=== PATIENT | female | born 1940 | race Caucasian/White ===

== ENCOUNTER 2017-07-21 08:38 | Outpatient (CLI) | payer MEDICARE, OTHER ==
--- NOTE | 2017-07-21 17:03 | MRI Report ---
EXAM: RIGHT SHOULDER MRI WITHOUT CONTRAST EXAM DATE: 07/21/2017 09:33 a.m. CLINICAL HISTORY: Chronic right shoulder pain worsening over the past 1.5 years. COMPARISON: Radiographs 03/24/2015. TECHNIQUE: Multiplanar, multisequence T1-weighted and fluid-sensitive sequences of the shoulder witho ut contrast. Other: None. FINDINGS: Rotator cuff: Moderate patchy edema within the distal supraspinatus. Ill-defined distal bursal surfac e and insertional tear of the anterior supraspinatus approximately 7 x 6 mm. No full-thickness tear i dentified but the anterior fibers are ill-defined. No convincing evidence a high-grade or full-thickn ess rotator cuff tear. No significant rotator cuff muscle atrophy or fatty replacement. Long head biceps tendon: Intact. Labrum: Linear signal representing possible tear at the inferior and posteroinferior labrum. No defin itive tear demonstrated on this non-arthrographic exam. Bones and articular surfaces: Moderate cartilage thinning irregularity and fissuring over the glenoid with pronounced subchondral marrow edema over the lower glenoid. Moderate humeral head marginal oste ophyte formation. Subchondral edema, subchondral cyst formation and moderate cartilage loss at the mcrae perior aspect of the humeral head. Acromioclavicular joint: Mild degenerative change. Type II acromion. Trace fluid in the subacromial s ubdeltoid bursa. IMPRESSION: 1. Moderate glenohumeral osteoarthritis. 2. Moderate supraspinatus tendinosis. 3. Ill-defined low-grade distal bursal surface and insertional tear of the anterior supraspinatus. 4. Mild degenerative change at the acromioclavicular joint. 5. Possible ill-defined tear at the inferior and posteroinferior labrum. [facility] SECTION Referring Provider Line: [phone] SITE ID: [id number]
== END 2017-07-21 08:39 | disposition home or self-care (01) ==
LOC: DI 08:38
PROVIDERS: ATTEND Physician Assistant Medical
DX: M19.011 Primary osteoarthritis, right shoulder (principal); M75.101 Unspecified rotator cuff tear or rupture of right shoulder, not specified as traumatic; M75.91 Shoulder lesion, unspecified, right shoulder

== ENCOUNTER 2017-07-30 08:45 | Outpatient (CLI) | payer MEDICARE, OTHER ==
[2017-07-30 13:36] LABS: BASOPHILS % (AUTO) 0.6 %; EOSINOPHILS # (AUTO) 0.2 10^3/uL (0.0-0.7); EOSINOPHILS % (AUTO) 3.7 %; HCT - HEMATOCRIT 37.2 % (37.0-47.0); HGB - HEMOGLOBIN 12.5 g/dL (12.0-16.0); LYMPHOCYTES # (AUTO) 1.3 10^3/uL (1.5-3.5); LYMPHOCYTES % (AUTO) 32.1 %; MEAN CORPUSCULAR HEMOGLOBIN 29.9 pg (27.0-31.0); MEAN CORPUSCULAR HGB CONC 33.5 g/dL (32.0-36.0); MEAN CORPUSCULAR VOLUME 89.3 fL (81.0-99.0); MEAN PLATELET VOLUME 8.4 fL (7.9-10.8); MONOCYTES # (AUTO) 0.4 10^3/uL (0.0-1.0); MONOCYTES % (AUTO) 9.7 %; NEUTROPHILS # (AUTO) 2.3 10^3/uL (1.5-6.6); NEUTROPHILS % (AUTO) 53.9 %; RED BLOOD COUNT 4.17 10^6/uL (4.20-5.40); RED CELL DISTRIBUTION WIDTH 13.1 % (12.0-15.0); UNCORRECTED WHITE BLOOD COUNT 4.2 x10^3/uL; WHITE BLOOD COUNT 4.2 x10^3/uL (4.8-10.8)
[2017-07-30 14:03] LABS: THYROID STIMULATING HORMONE 2.37 uIU/mL (0.34-5.60)
[2017-07-30 14:09] LABS: ALBUMIN/GLOBULIN RATIO 1.5 (1.0-2.2); BILIRUBIN,TOTAL 0.3 mg/dL (0.2-1.0); CALCIUM 9.3 mg/dL (8.5-10.3); CREATININE 0.8 mg/dL (0.4-1.0); TOTAL PROTEIN 6.9 g/dL (6.7-8.2)
== END 2017-07-30 08:46 | disposition home or self-care (01) ==
LOC: LAB.R 08:45
PROVIDERS: ATTEND Physician Assistant Medical
DX: Z79.899 Other long term (current) drug therapy (principal); E55.9 Vitamin D deficiency, unspecified; F32.9 Major depressive disorder, single episode, unspecified; E03.9 Hypothyroidism, unspecified; G47.00 Insomnia, unspecified
CPT/HCPCS: 80053; 82306; 84439; 84443; 84481; 85025

== ENCOUNTER 2017-09-10 09:38 | Emergency (ER) | payer MEDICARE, OTHER ==
[2017-09-10 10:04] LABS: BASOPHILS % (AUTO) 0.5 %; EOSINOPHILS # (AUTO) 0.1 10^3/uL (0.0-0.7); EOSINOPHILS % (AUTO) 3.5 %; HGB - HEMOGLOBIN 12.4 g/dL (12.0-16.0); LYMPHOCYTES % (AUTO) 27.3 %; MEAN CORPUSCULAR HEMOGLOBIN 29.9 pg (27.0-31.0); MEAN CORPUSCULAR HGB CONC 33.9 g/dL (32.0-36.0); MEAN CORPUSCULAR VOLUME 88.1 fL (81.0-99.0); MEAN PLATELET VOLUME 7.7 fL (7.9-10.8); MONOCYTES # (AUTO) 0.3 10^3/uL (0.0-1.0); MONOCYTES % (AUTO) 8.8 %; NEUTROPHILS # (AUTO) 2.1 10^3/uL (1.5-6.6); NEUTROPHILS % (AUTO) 59.9 %; PLT - PLATELET COUNT 209 10^3/uL (130-450); RED BLOOD COUNT 4.14 10^6/uL (4.20-5.40); RED CELL DISTRIBUTION WIDTH 13.3 % (12.0-15.0); WHITE BLOOD COUNT 3.5 x10^3/uL (4.8-10.8)
[2017-09-10 10:16] LABS: ALBUMIN 3.9 g/dL (3.2-5.5); ALBUMIN/GLOBULIN RATIO 1.4 (1.0-2.2); BILIRUBIN,TOTAL 0.6 mg/dL (0.2-1.0); CALCIUM 9.4 mg/dL (8.5-10.3); CREATININE 0.9 mg/dL (0.4-1.0); TOTAL PROTEIN 6.6 g/dL (6.7-8.2)
--- NOTE | 2017-09-10 11:18 | ED Physician Documentation ---
PD HPI CHEST PAIN - Stated complaint Stated Complaint: HEART POUNDING - Chief complaint Chief Complaint: Cardiac - History obtained from History obtained from: Patient - History of Present Illness Timing - onset: How many days ago (3) Timing - onset during: Light activity Timing - duration: Days (3) Timing - details: Gradual onset, Still present, Waxing and waning Quality: Throbbing Location: Left chest Improved by: Rest Associated symptoms: Feeling faint / dizzy. No: Shortness of air, Diaphoresis, Nausea, Vomiting Similar symptoms before: Has not had sx before Recently seen: Clinic - Additional information Additional information: 76-year-old female has had a feeling of palpitations in her chest and lightheaded and dizziness. She does state that she drinks fluids regularly and she has recently been in to see her primary care doctor about a spot on her eye and she has been placed on some TobraDex drops as well as some Keflex and this process seems to be improving dramatically. She is concerned about the drops causing her to feel odd. She has not had cough or congestion she has not had vomiting or diarrhea she is taking a multivitamin and magnesium daily. She does give history that she hydrates with lemon water in the morning and does not drink fluids until afternoon and drinks about 60 ounces per day. She is under a lot of stress with a partner who has lung cancer that is not responding to treatment. Review of Systems Constitutional: reports: Fatigue. 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 : Other HEENT: None Psych: None Musculoskeletal: Chronic back pain, Other Derm: Eczema - Past Surgical History Past Surgical History: Yes Ortho: Other - Present Medications Home Medications: Ambulatory Orders Medication Instructions Recorded Confirmed Azithromycin 250 mg PO DAILYX4 PRN 06/12/16 06/12/16 Ciprofloxacin HCl [Cipro] 250 mg PO [id number] PRN 06/12/16 06/12/16 Cyclobenzaprine [Flexeril] 10 mg PO TID PRN 06/12/16 06/12/16 HYDROcod/ACETAM 5/325 [[place] 5/325] 1 tab PO DAILY 06/12/16 06/12/16 Liotrix [Thyrolar-3] 1 tab PO DAILY 06/12/16 06/12/16 Zolpidem [Ambien] 10 mg PO HS 06/12/16 06/12/16 buPROPion [Wellbutrin Xl] 150 mg PO DAILY 06/12/16 06/12/16 clonazePAM [Clonazepam] 1 mg PO DAILY 06/12/16 06/12/16 - Allergies Allergies/Adverse Reactions: Allergies Allergy/AdvReac Type Severity Reaction Status Date / Time prochlorperazine edisylate * Allergy Severe Edema Verified 09/10/17 09:49 [From Compazine] prochlorperazine maleate * Allergy Severe Edema Verified 09/10/17 09:49 [From Compazine] Sulfa (Sulfonamide Allergy Severe Nausea Verified 09/10/17 09:49 Antibiotics) tetracycline [Tetracycline] Allergy Nausea Verified 09/10/17 09:49 - Social History Does the pt smoke?: No Smoking Status: Never smoker Does the pt drink ETOH?: Yes Does the pt have substance abuse?: No - Immunizations Immunizations are current?: Yes - POLST Patient has POLST: No PD ED PE NORMAL - Vitals Vital signs reviewed: Yes (hypertensive) - General General: Alert and oriented X 3, No acute distress, Well developed/nourished - HEENT HEENT: Atraumatic, PERRL, EOMI, Ears normal, Other (dry mucous membranes) - Neck Neck: Supple, no meningeal sign, No bony TTP - Cardiac Cardiac: RRR, No murmur - Respiratory Respiratory: No respiratory distress, Clear bilaterally - Abdomen Abdomen: Soft, Non tender - Back Back: No CVA TTP, No spinal TTP - Derm Derm: Normal color, Warm and dry - Extremities Extremities: No deformity, No edema - Neuro Neuro: No motor deficit, No sensory deficit Eye Opening: Spontaneous Motor: Obeys Commands Verbal: Oriented GCS Score: 15 - Psych Psych: Normal mood, Normal affect Results - Vitals Vitals: Vital Signs - 24 hr 01/22/18 01/22/18 01/22/18 09:40 11:05 11:50 Temperature 36.6 C Heart Rate 48 L 69 Heart Rate [ 79 Sitting] Heart Rate [ 87 Standing] Heart Rate [ 75 Supine] Respiratory 20 16 Rate Blood Pressure 142/89 H 130/79 Blood Pressure 124/69 [Sitting] Blood Pressure 107/76 [Standing] Blood Pressure 113/64 [Supine] O2 Saturation 100 98 09/10/17 13:05 Temperature Heart Rate 79 Heart Rate [ Sitting] Heart Rate [ Standing] Heart Rate [ Supine] Respiratory 16 Rate Blood Pressure 110/72 Blood Pressure [Sitting] Blood Pressure [Standing] Blood Pressure [Supine] O2 Saturation 96 Oxygen O2 Source Room air - EKG (time done) 0944 Rate: Rate (enter#) (89) Rhythm: Other (supraventricular bigeminy) Compare to prior EKG: Old EKG unavailable Computer interpretation: Agree with computer - Labs Labs: Laboratory Tests 09/10/17 09/10/17 09/10/17 09:58 09:58 09:58 WBC 3.5 L RBC 4.14 L Hgb 12.4 Hct 36.4 L MCV 88.1 MCH 29.9 MCHC 33.9 RDW 13.3 Plt Count 209 MPV 7.7 L Neut # 2.1 Lymph # 1.0 L [place] # 0.3 Eos # 0.1 Baso # 0.0 Absolute Nucleated RBC 0.00 Nucleated RBC % 0.0 Sodium 135 Potassium 3.6 Chloride 99 L Carbon Dioxide 27 Anion Gap 9.0 BUN 14 Creatinine 0.9 Estimated GFR (MDRD) 61 L Glucose 126 H Calcium 9.4 Total Bilirubin 0.6 AST 21 ALT 17 Alkaline Phosphatase 42 Troponin I < 0.04 Total Protein 6.6 L Albumin 3.9 Globulin 2.7 Albumin/Globulin Ratio 1.4 Lipase 23 Procedures - IVC sono (time) 1130 Bedside IVC sono: IVC measures (cm) (1.1), IVC collapsed c insp (cm) (complete) , Dehydration (est 1 liter) PD MEDICAL DECISION MAKING - ED course Complexity details: reviewed old records, reviewed results, re-evaluated patient , considered differential, d/w patient ED course: 76-year-old female under a lot of stress with a second partner has developed lightheaded and dizziness she is found to be dehydrated on interrogation of the inferior vena cava. She also has supraventricular bigeminy on her electrocardiogram. She is hydrated in the emergency department with a banana bag IV and Departure - Departure Disposition: Home, Self Care Clinical Impression: Dehydration, Supraventricular bigeminy, Stress at home Condition: Stable Instructions: ED Stress React, ED Dehydration Follow-Up: June Alejandro PA-C [Primary Care Provider] - Discharge Date/Time: 09/10/17 13:13
[2017-09-10] MEDS ORDERED: THIAMINE INJ 100 MG, FOLIC ACID INJ 1 MG in SODIUM CHLORIDE 0.9% 100ML 100 ML IV STA (11:36)
[2017-09-10] MEDS ORDERED: MAGNESIUM SULFATE 2 GRAM 2 GM/50 ML BAG IV STA (11:36)
[2017-09-10] MEDS ORDERED: MULTIVITAMIN 10 ML in SODIUM CHLORIDE 0.9% 1,000 ML IV STA (11:36)
[2017-09-10 13:07] VITALS: BP 110/72
== END 2017-09-10 13:13 | disposition home or self-care (01) ==
LOC: ED 09:38
DX: E86.0 Dehydration (principal); I49.3 Ventricular premature depolarization; E03.9 Hypothyroidism, unspecified
CPT/HCPCS: 36415; 80053; 83690; 84484; 85025; 93005; 96365; 96368; 99283; 99284; J3411

== ENCOUNTER 2017-09-14 00:25 | Emergency (ER) | payer MEDICARE, OTHER ==
--- NOTE | 2017-09-14 02:57 | ED Physician Documentation ---
History of Present Illness - Stated complaint Stated Complaint: BRUISE,BLISTERS INSIDE LIP - Chief complaint Chief Complaint: Heent - History obtained from History obtained from: Patient - History of Present Illness Timing: Today Pain level max: 0 Pain level now: 0 - Additonal information Additional information: this evening, patient noticed in mirror that she had a "brown spot" on right upper lip. In retrospect, she wonders if it was due to some hot food she had earlier today, although she does not recall a specific incident when she felt as though she burned or bit her lip. Her chief concern is that the area involved has spread since she first noticed it. she has had "cold sores" in the past, but she says this does not feel similar. 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 : Other HEENT: None Psych: None Musculoskeletal: Chronic back pain, Other Derm: Eczema Other Past Medical History: Vaginal herpes - Past Surgical History Past Surgical History: Yes Ortho: Other - Present Medications Home Medications: Ambulatory Orders Medication Instructions Recorded Confirmed Cyclobenzaprine [Flexeril] 10 mg PO TID PRN 06/12/16 09/14/17 HYDROcod/ACETAM 5/325 [[place] 5/325] 1 tab PO DAILY 06/12/16 09/14/17 Liotrix [Thyrolar-3] 1 tab PO DAILY 06/12/16 09/14/17 Zolpidem [Ambien] 3 mg PO HS 06/12/16 09/14/17 buPROPion [Wellbutrin Xl] 150 mg PO DAILY 06/12/16 09/14/17 clonazePAM [Clonazepam] 1 mg PO DAILY 06/12/16 09/14/17 Valacyclovir HCl [Valacyclovir] 1 tab PO DAILY 09/14/17 09/14/17 - Allergies Allergies/Adverse Reactions: Allergies Allergy/AdvReac Type Severity Reaction Status Date / Time prochlorperazine edisylate * Allergy Severe Edema Verified 09/14/17 00:40 [From Compazine] prochlorperazine maleate * Allergy Severe Edema Verified 09/14/17 00:40 [From Compazine] Sulfa (Sulfonamide Allergy Severe Nausea Verified 09/14/17 00:40 Antibiotics) tetracycline [Tetracycline] Allergy Nausea Verified 09/14/17 00:40 - Social History Does the pt smoke?: No Smoking Status: Never smoker Does the pt drink ETOH?: Yes Does the pt have substance abuse?: No - Immunizations Immunizations are current?: Yes - POLST Patient has POLST: No PD ED PE NORMAL - Vitals Vital signs reviewed: Yes - General General: Alert and oriented X 3, No acute distress, Well developed/nourished PD ED PE EXPANDED - HEENT HEENT Visual: 1 - bruising (0.5 cm diameter, flat echymosis. no tenderness, no vesicles or ulcerations. no facial lesions and no other lesions in the mouth including gingiva) Results - Vitals Vitals: Vital Signs - 24 hr 09/14/17 09/14/17 00:33 03:24 Temperature 36.4 C L Heart Rate 83 60 Respiratory 18 15 Rate Blood Pressure 145/71 H 140/86 H O2 Saturation 98 98 Oxygen O2 Source Room air PD MEDICAL DECISION MAKING - ED course Complexity details: considered differential, d/w patient ED course: unclear cause of what appears to be echymosis of the right upper lip. appearance is not s/o infection (bacterial or viral). Instructed to return if worse or if new lesions appear, and to f/u with PMD if the lesion persists beyond the weekend Departure - Departure Disposition: 01 Home, Self Care Clinical Impression: Lip lesion Condition: Good Instructions: ED Symptoms No Dx Follow-Up: June Alejandro PA-C [Primary Care Provider] - Discharge Date/Time: 09/14/17 03:25
[2017-09-14 03:25] VITALS: BP 140/86
== END 2017-09-14 03:25 | disposition home or self-care (01) ==
LOC: ED 00:25
DX: K13.0 Diseases of lips (principal); I49.9 Cardiac arrhythmia, unspecified; E03.9 Hypothyroidism, unspecified
CPT/HCPCS: 99282; 99283

== ENCOUNTER 2018-03-26 11:38 | Outpatient (CLI) | payer MEDICARE, OTHER ==
[2018-03-26 17:26] LABS: BASOPHILS % (AUTO) 0.6 %; EOSINOPHILS # (AUTO) 0.1 10^3/uL (0.0-0.7); HGB - HEMOGLOBIN 12.8 g/dL (12.0-16.0); LYMPHOCYTES # (AUTO) 1.3 10^3/uL (1.5-3.5); LYMPHOCYTES % (AUTO) 28.6 %; MEAN CORPUSCULAR HGB CONC 33.3 g/dL (32.0-36.0); MEAN PLATELET VOLUME 8.3 fL (7.9-10.8); MONOCYTES # (AUTO) 0.4 10^3/uL (0.0-1.0); MONOCYTES % (AUTO) 8.2 %; NEUTROPHILS # (AUTO) 2.8 10^3/uL (1.5-6.6); NEUTROPHILS % (AUTO) 60.6 %; PLT - PLATELET COUNT 246 10^3/uL (130-450); RED BLOOD COUNT 4.28 10^6/uL (4.20-5.40); WHITE BLOOD COUNT 4.5 x10^3/uL (4.8-10.8)
[2018-03-26 17:39] LABS: ALBUMIN 3.9 g/dL (3.2-5.5); ALBUMIN/GLOBULIN RATIO 1.3 (1.0-2.2); BILIRUBIN,TOTAL 0.5 mg/dL (0.2-1.0); CALCIUM 9.6 mg/dL (8.5-10.3); CREATININE 0.8 mg/dL (0.4-1.0); TOTAL PROTEIN 6.8 g/dL (6.7-8.2)
== END 2018-03-26 11:39 | disposition home or self-care (01) ==
LOC: LAB.R 11:38
PROVIDERS: ATTEND Physician Assistant Medical
DX: E55.9 Vitamin D deficiency, unspecified (principal); Z79.899 Other long term (current) drug therapy; F32.9 Major depressive disorder, single episode, unspecified
CPT/HCPCS: 80053; 82306; 82652; 84443; 85025

== ENCOUNTER 2018-08-14 09:08 | Outpatient (CLI) | payer MEDICARE, OTHER ==
[2018-08-14 15:01] LABS: BASOPHILS % (AUTO) 0.4 %; EOSINOPHILS # (AUTO) 0.1 10^3/uL (0.0-0.7); EOSINOPHILS % (AUTO) 1.4 %; HGB - HEMOGLOBIN 12.7 g/dL (12.0-16.0); LYMPHOCYTES # (AUTO) 1.2 10^3/uL (1.5-3.5); LYMPHOCYTES % (AUTO) 20.3 %; MEAN CORPUSCULAR HEMOGLOBIN 30.3 pg (27.0-31.0); MEAN PLATELET VOLUME 8.6 fL (7.9-10.8); MONOCYTES # (AUTO) 0.4 10^3/uL (0.0-1.0); MONOCYTES % (AUTO) 7.4 %; NEUTROPHILS % (AUTO) 70.5 %; PLT - PLATELET COUNT 259 10^3/uL (130-450); RED BLOOD COUNT 4.21 10^6/uL (4.20-5.40); RED CELL DISTRIBUTION WIDTH 13.1 % (12.0-15.0); WHITE BLOOD COUNT 5.7 x10^3/uL (4.8-10.8)
[2018-08-14 15:06] LABS: ALBUMIN 4.3 g/dL (3.2-5.5); ALBUMIN/GLOBULIN RATIO 1.5 (1.0-2.2); ALKALINE PHOSPHATASE 60 IU/L (42-121); ALT ALANINE AMINOTRANSFERASE 21 IU/L (10-60); AST ASPARTATE AMINOTRANSFERASE 21 IU/L (10-42); BILIRUBIN,TOTAL 0.5 mg/dL (0.2-1.0); BUN - BLOOD UREA NITROGEN 18 mg/dL (6-20); CALCIUM 9.7 mg/dL (8.5-10.3); CARBON DIOXIDE - CO2 27 mmol/L (21-32); CHLORIDE 103 mmol/L (101-111); CHOL/HDL RATIO 2.4 (<4.4); CHOLESTEROL 220 mg/dL; CREATININE 0.8 mg/dL (0.4-1.0); GFR - MDRD 70 (>89); GLUCOSE 104 mg/dL (70-100); HDL CHOLESTEROL 90 mg/dL; LDL CHOLESTEROL,CALCULATED 121 mg/dL; LDL/HDL RATIO 1.3 (<4.4); SODIUM 135 mmol/L (135-145); TOTAL PROTEIN 7.2 g/dL (6.7-8.2); VLDL CHOLESTEROL 9 mg/dL
== END 2018-08-14 09:09 | disposition home or self-care (01) ==
LOC: LAB.R 09:08
PROVIDERS: ATTEND Physician Assistant Medical
DX: Z79.899 Other long term (current) drug therapy (principal); E78.2 Mixed hyperlipidemia
CPT/HCPCS: 80053; 80061; 83721; 85025

== ENCOUNTER 2019-08-07 13:10 | Emergency (ER) | payer MEDICARE, OTHER ==
[2019-08-07 13:26] VITALS: BP 124/66
--- NOTE | 2019-08-07 13:46 | ED Physician Documentation ---
History of Present Illness - Stated complaint Stated Complaint: RAPID HEART RATE/DIZZY - Chief complaint Chief Complaint: Cardiac - History obtained from History obtained from: Patient (78-year-old woman with history of ectopy which she occasionally takes a few days worth of metoprolol for presents with increased occasional lightheadedness and feeling like her heart rate is skipped for the last few days. She notes no shortness of breath or chest pain. It is similar to prior episodes of activity.) Review of Systems Constitutional: denies: Fever, Chills Cardiac: reports: Palpitations. 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 HEENT: None Psych: None Musculoskeletal: Chronic back pain, Other Derm: Eczema - Past Surgical History Past Surgical History: Yes Ortho: Other - Present Medications Home Medications: Ambulatory Orders Medication Instructions Recorded Confirmed Cyclobenzaprine [Flexeril] 10 mg PO TID PRN 06/12/16 09/14/17 HYDROcod/ACETAM 5/325 [[place] 5/325] 1 tab PO DAILY 06/12/16 09/14/17 Liotrix [Thyrolar-3] 1 tab PO DAILY 06/12/16 09/14/17 Zolpidem [Ambien] 3 mg PO HS 06/12/16 09/14/17 buPROPion [Wellbutrin Xl] 150 mg PO DAILY 06/12/16 09/14/17 clonazePAM [Clonazepam] 1 mg PO DAILY 06/12/16 09/14/17 Valacyclovir HCl [Valacyclovir] 1 tab PO DAILY 09/14/17 09/14/17 - Allergies Allergies/Adverse Reactions: Allergies Allergy/AdvReac Type Severity Reaction Status Date / Time prochlorperazine edisylate * Allergy Severe Edema Verified 08/07/19 13:26 [From Compazine] prochlorperazine maleate * Allergy Severe Edema Verified 08/07/19 13:26 [From Compazine] Sulfa (Sulfonamide Allergy Severe Nausea Verified 08/07/19 13:26 Antibiotics) tetracycline [Tetracycline] Allergy Nausea Verified 08/07/19 13:26 - Social History Does the pt smoke?: No Smoking Status: Never smoker Does the pt drink ETOH?: Yes Does the pt have substance abuse?: No - Immunizations Immunizations are current?: Yes - POLST Patient has POLST: No PD ED PE NORMAL - Vitals Vital signs reviewed: Yes - General General: Alert and oriented X 3, No acute distress - HEENT HEENT: PERRL, EOMI - Neck Neck: Supple, no meningeal sign, No bony TTP - Cardiac Cardiac: RRR (On the monitor she has very occasional PVCs, maybe 1 a minute. It matches temporally with her symptoms and she notes that every time that happens.), No murmur - Respiratory Respiratory: No respiratory distress, Clear bilaterally - Abdomen Abdomen: Non tender - Extremities Extremities: No edema, No calf tenderness / cord - Neuro Neuro: Alert and oriented X 3, Normal speech Results - Vitals Vitals: Vital Signs - 24 hr 08/07/19 08/07/19 13:12 14:17 Temperature 36.5 C Heart Rate 80 82 Respiratory 18 16 Rate Blood Pressure 124/66 O2 Saturation 100 97 Oxygen O2 Source Room air - EKG (time done) 1317 Rate: Rate (enter#) (77) Rhythm: NSR [place]: Normal Intervals: Normal [place] QRS: Normal Ischemia: Normal ST segments Computer interpretation: Agree with computer - Labs Labs: Laboratory Tests 08/07/19 08/07/19 08/07/19 13:44 13:53 13:53 WBC 5.3 RBC 4.18 L Hgb 12.2 Hct 37.6 MCV 90.0 MCH 29.2 MCHC 32.4 RDW 12.7 Plt Count 234 MPV 10.1 Neut # (Auto) 3.1 Lymph # (Auto) 1.6 [place] # (Auto) 0.5 Eos # (Auto) 0.1 Baso # (Auto) 0.0 Absolute Nucleated RBC 0.00 Nucleated RBC % 0.0 Sodium 137 Potassium 4.0 Chloride 103 Carbon Dioxide 27 Anion Gap 7.0 BUN 27 H Creatinine 0.9 Estimated GFR (MDRD) 61 L Glucose 96 Calcium 10.2 Total Bilirubin 0.2 AST 19 ALT 18 Alkaline Phosphatase 44 Total Protein 7.0 Albumin 4.2 Globulin 2.8 Albumin/Globulin Ratio 1.5 Lipase 32 TSH 1.51 Thyroxine (T4) 6.59 PD MEDICAL DECISION MAKING - ED course ED course: 78-year-old woman with symptomatic ectopy, she will restart her metoprolol. Note made of elevated BUN, encouraged increased water intake. Departure - Departure Disposition: 01 Home, Self Care Clinical Impression: PVC (premature ventricular contraction) Condition: Good Record reviewed to determine appropriate education?: Yes Instructions: ED Dysrhythmia Unspecified, ED Palpitations Comments: Your labs are all normal with the exception of an elevated BUN, this is suggestive of mild dehydration and I encourage you to increase oral fluids. You can also restart your metoprolol. Avoid stimulants such as caffeine.
[2019-08-07 14:05] LABS: BASOPHILS % (AUTO) 0.6 %; EOSINOPHILS # (AUTO) 0.1 10^3/uL (0.0-0.7); EOSINOPHILS % (AUTO) 2.3 %; HGB - HEMOGLOBIN 12.2 g/dL (12.0-16.0); LYMPHOCYTES # (AUTO) 1.6 10^3/uL (1.5-3.5); MEAN CORPUSCULAR HEMOGLOBIN 29.2 pg (27.0-31.0); MEAN CORPUSCULAR HGB CONC 32.4 g/dL (32.0-36.0); MEAN PLATELET VOLUME 10.1 fL (7.9-10.8); MONOCYTES # (AUTO) 0.5 10^3/uL (0.0-1.0); MONOCYTES % (AUTO) 8.6 %; NEUTROPHILS # (AUTO) 3.1 10^3/uL (1.5-6.6); NEUTROPHILS % (AUTO) 58.3 %; PLT - PLATELET COUNT 234 10^3/uL (130-450); RED BLOOD COUNT 4.18 10^6/uL (4.20-5.40); RED CELL DISTRIBUTION WIDTH 12.7 % (12.0-15.0); WHITE BLOOD COUNT 5.3 x10^3/uL (4.8-10.8)
[2019-08-07 14:22] LABS: ALBUMIN 4.2 g/dL (3.2-5.5); ALBUMIN/GLOBULIN RATIO 1.5 (1.0-2.2); BILIRUBIN,TOTAL 0.2 mg/dL (0.2-1.0); CALCIUM 10.2 mg/dL (8.5-10.3); CREATININE 0.9 mg/dL (0.4-1.0)
[2019-08-07 14:33] LABS: T4 (THYROXINE) 6.59 ug/dL (6.09-12.23)
[2019-08-07 14:37] LABS: THYROID STIMULATING HORMONE 1.51 uIU/mL (0.34-5.60)
== END 2019-08-07 14:50 | disposition home or self-care (01) ==
LOC: ED 13:10
DX: I49.3 Ventricular premature depolarization (principal); R79.89 Other specified abnormal findings of blood chemistry
CPT/HCPCS: 36415; 80053; 83690; 84436; 84443; 84481; 85025; 93005; 99283; 99284

== ENCOUNTER 2019-10-09 07:53 | Outpatient (CLI) | payer MEDICARE, OTHER ==
[2019-10-09 08:28] LABS: BASOPHILS % (AUTO) 0.5 %; EOSINOPHILS # (AUTO) 0.1 10^3/uL (0.0-0.7); EOSINOPHILS % (AUTO) 2.7 %; HGB - HEMOGLOBIN 12.6 g/dL (12.0-16.0); LYMPHOCYTES # (AUTO) 1.6 10^3/uL (1.5-3.5); LYMPHOCYTES % (AUTO) 36.6 %; MEAN CORPUSCULAR HEMOGLOBIN 28.8 pg (27.0-31.0); MEAN CORPUSCULAR HGB CONC 31.8 g/dL (32.0-36.0); MEAN CORPUSCULAR VOLUME 90.6 fL (81.0-99.0); MEAN PLATELET VOLUME 9.5 fL (7.9-10.8); MONOCYTES # (AUTO) 0.4 10^3/uL (0.0-1.0); NEUTROPHILS # (AUTO) 2.2 10^3/uL (1.5-6.6); NEUTROPHILS % (AUTO) 49.5 %; PLT - PLATELET COUNT 252 10^3/uL (130-450); RED BLOOD COUNT 4.37 10^6/uL (4.20-5.40); RED CELL DISTRIBUTION WIDTH 12.7 % (12.0-15.0); WHITE BLOOD COUNT 4.4 x10^3/uL (4.8-10.8)
[2019-10-09 08:48] LABS: ALBUMIN 4.1 g/dL (3.2-5.5); ALBUMIN/GLOBULIN RATIO 1.2 (1.0-2.2); ALKALINE PHOSPHATASE 45 IU/L (42-121); ALT ALANINE AMINOTRANSFERASE 21 IU/L (10-60); AST ASPARTATE AMINOTRANSFERASE 21 IU/L (10-42); BILIRUBIN,TOTAL 0.7 mg/dL (0.2-1.0); BUN - BLOOD UREA NITROGEN 22 mg/dL (6-20); CALCIUM 9.8 mg/dL (8.5-10.3); CARBON DIOXIDE - CO2 26 mmol/L (21-32); CHLORIDE 106 mmol/L (101-111); CHOL/HDL RATIO 3.2 (<4.4); CHOLESTEROL 220 mg/dL; CREATININE 0.8 mg/dL (0.4-1.0); GFR - MDRD 70 (>89); GLUCOSE 100 mg/dL (70-100); HDL CHOLESTEROL 68 mg/dL; LDL CHOLESTEROL,CALCULATED 133 mg/dL; SODIUM 138 mmol/L (135-145); TOTAL PROTEIN 7.4 g/dL (6.7-8.2); VLDL CHOLESTEROL 19 mg/dL
== END 2019-10-09 07:54 | disposition home or self-care (01) ==
LOC: LAB 07:53
PROVIDERS: ATTEND Nurse Practitioner
DX: B00.9 Herpesviral infection, unspecified (principal); Z79.899 Other long term (current) drug therapy; E78.2 Mixed hyperlipidemia; E03.9 Hypothyroidism, unspecified; M85.80 Other specified disorders of bone density and structure, unspecified site
CPT/HCPCS: 36415; 80053; 80061; 82306; 83721; 84443; 85025

== ENCOUNTER 2020-03-04 12:56 | Outpatient (CLI) | payer MEDICARE, OTHER | END 2020-03-04 12:57 | disposition home or self-care (01) | LOC: COV 12:56 | PROVIDERS: ATTEND Family Medicine | DX: Z11.59 Encounter for screening for other viral diseases (principal) ==

== ENCOUNTER 2020-04-29 13:19 | Outpatient (CLI) | payer MEDICARE, OTHER | END 2020-04-29 13:20 | disposition home or self-care (01) | LOC: COV 13:19 | PROVIDERS: ATTEND Family Medicine | DX: Z20.828 Contact with and (suspected) exposure to other viral communicable diseases (principal) ==

== ENCOUNTER 2020-05-06 08:00 | Outpatient (CLI) | payer MEDICARE, OTHER ==
[2020-05-06 12:21] LABS: H. PYLORIS ANTIGEN STL NEGATIVE (Negative)
== END 2020-05-06 23:59 | disposition home or self-care (01) ==
LOC: LAB.R 08:00
PROVIDERS: ATTEND Nurse Practitioner
DX: R10.9 Unspecified abdominal pain (principal)
CPT/HCPCS: 87177; 87209; 87338

== ENCOUNTER 2020-05-28 09:00 | Outpatient (CLI) | payer MEDICARE, OTHER | END 2020-05-28 23:59 | disposition home or self-care (01) | LOC: COV 09:00 | PROVIDERS: ATTEND Family Medicine | DX: Z20.828 Contact with and (suspected) exposure to other viral communicable diseases (principal) ==

== ENCOUNTER 2020-07-24 19:32 | Emergency (ER) | payer MEDICARE, OTHER ==
--- NOTE | 2020-07-24 20:00 | ED Physician Documentation ---
PD HPI LOWER EXT INJURY - Stated complaint Stated Complaint: RT CALF SWELLING - Chief complaint Chief Complaint: Ext Problem - History obtained from History obtained from: Patient (Recently got back from a plane trip and started to feel a tight spot in her right calf with some pain which she declines pain medication for. No history of DVT or PE. 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 HEENT: None Psych: None Musculoskeletal: Chronic back pain, Other Derm: Eczema - Past Surgical History Past Surgical History: Yes Ortho: Other - Present Medications Home Medications: Ambulatory Orders Medication Instructions Recorded Confirmed Cyclobenzaprine [Flexeril] 10 mg PO TID PRN 06/12/16 07/24/20 Liotrix [Thyrolar-3] 1 tab PO DAILY 06/12/16 07/24/20 buPROPion [Wellbutrin Xl] 150 mg PO DAILY 06/12/16 07/24/20 Valacyclovir HCl [Valacyclovir] 1 tab PO DAILY 09/14/17 07/24/20 - Allergies Allergies/Adverse Reactions: Allergies Allergy/AdvReac Type Severity Reaction Status Date / Time prochlorperazine edisylate * Allergy Severe Edema Verified 07/24/20 19:38 [From Compazine] prochlorperazine maleate * Allergy Severe Edema Verified 07/24/20 19:38 [From Compazine] Sulfa (Sulfonamide Allergy Severe Nausea Verified 07/24/20 19:38 Antibiotics) tetracycline [Tetracycline] Allergy Nausea Verified 07/24/20 19:38 - Social History Does the pt smoke?: No Smoking Status: Never smoker Does the pt drink ETOH?: Yes Does the pt have substance abuse?: No - Immunizations Immunizations are current?: Yes - POLST Patient has POLST: No PD ED PE NORMAL - Vitals Vital signs reviewed: Yes - General General: Alert and oriented X 3, No acute distress - HEENT HEENT: PERRL, EOMI - Extremities Extremities: Other (There is firm slightly tender area in the right medial calf with mild overlying discoloration but not cellulitis.) - Neuro Neuro: Alert and oriented X 3, Normal speech Results - Vitals Vitals: Vital Signs - 24 hr 07/24/20 19:38 Temperature 36.6 C Heart Rate 88 Respiratory 16 Rate Blood Pressure 132/68 H O2 Saturation 100 Oxygen O2 Source Room air - Rads (name of study) RLE sono Radiology: Prelim report reviewed (no dvt) Departure - Departure Disposition: Home, Self Care Clinical Impression: Right leg pain Condition: Good Record reviewed to determine appropriate education?: Yes Instructions: ED Muscle Pain Leg Cramps Comments: As discussed, ultrasound is normal, most likely muscular pain of the leg. You can take Tylenol or ibuprofen as needed. Heat as well. Return for new or worsening symptoms.
[2020-07-24 22:07] VITALS: BP 133/80
--- NOTE | 2020-07-25 11:34 | Ultrasound Report ---
PROCEDURE: Duplex Ext Veins Right INDICATIONS: RLE pain TECHNIQUE: Real-time imaging, as well as color and pulse Doppler interrogation, were performed of the lower extr emity deep veins from the inguinal ligament to the popliteal fossa. COMPARISON: None. FINDINGS: The deep veins are normally compressible, and free of intraluminal thrombus. Color and pu lse Doppler demonstrate normal phasic intraluminal flow. There is normal augmentation response to di stal compression maneuver. IMPRESSION: No findings of deep venous thrombosis are seen. Note: No significant discrepancy from the preliminary report. Reviewed by: Justin Medley MD on 07/25/2020 10:32 AM [facility] Approved by: Justin Medley MD on 07/25/2020 10:32 AM [facility] Station ID: [id number]
== END 2020-07-24 22:06 | disposition home or self-care (01) ==
LOC: ED 19:32
DX: M79.661 Pain in right lower leg (principal)
CPT/HCPCS: 99283; 99284

== ENCOUNTER 2020-07-29 19:39 | Outpatient (CLI) | payer MEDICARE, OTHER | END 2020-07-29 19:40 | disposition home or self-care (01) | LOC: COV 19:39 | PROVIDERS: ATTEND Family Medicine | DX: Z20.828 Contact with and (suspected) exposure to other viral communicable diseases (principal) ==

== ENCOUNTER 2020-08-02 12:20 | Outpatient (CLI) | payer MEDICARE, OTHER | END 2020-08-02 12:21 | disposition home or self-care (01) | LOC: COV 12:20 | PROVIDERS: ATTEND Family Medicine | DX: R50.9 Fever, unspecified (principal); R05 Cough; M79.10 Myalgia, unspecified site; R53.83 Other fatigue; Z20.828 Contact with and (suspected) exposure to other viral communicable diseases ==

== ENCOUNTER 2020-08-03 13:32 | Emergency (ER) | payer MEDICARE, OTHER ==
--- NOTE | 2020-08-03 15:16 | ED Physician Documentation ---
History of Present Illness - Stated complaint Stated Complaint: COUGH/FEVER/ACHY - Chief complaint Chief Complaint: General - History obtained from History obtained from: Patient - Additonal information Additional information: 79-year-old woman presents to the emergency department for evaluation of a cough. Reports that cough began 3 days ago. She reports that when she takes deeper breaths she does have the sensation of cough. It is mostly dry nonproductive. She had a mild temperature elevation yesterday of 100.2. She denies any chest pain or feeling short of air. She has no abdominal pain nausea or vomiting. She does not have a history of hypertension, diabetes COPD. She is a non-smoker. Because of recent travel she was tested for COVID-19 and was negative. She did discuss with her primary care doctor yesterday the fatigue and temperature elevation and a COVID-19 test is still pending. Review of Systems Constitutional: reports: Fever Eyes: reports: Reviewed and negative Ears: reports: Reviewed and negative Nose: denies: Rhinorrhea / runny nose, Congestion, Epistaxis, Foreign Body Throat: denies: Dental pain / toothache Cardiac: denies: Chest pain / pressure, Palpitations Respiratory: reports: Cough. 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 HEENT: None Psych: None Musculoskeletal: Chronic back pain, Other Derm: Eczema - Past Surgical History Past Surgical History: Yes Ortho: Other - Present Medications Home Medications: Ambulatory Orders Medication Instructions Recorded Confirmed Cyclobenzaprine [Flexeril] 10 mg PO TID PRN 06/12/16 07/24/20 Liotrix [Thyrolar-3] 1 tab PO DAILY 06/12/16 07/24/20 buPROPion [Wellbutrin Xl] 150 mg PO DAILY 06/12/16 07/24/20 Valacyclovir HCl [Valacyclovir] 1 tab PO DAILY 09/14/17 07/24/20 Benzonatate [Tessalon] 100 mg PO TID PRN #30 capsule 08/03/20 - Allergies Allergies/Adverse Reactions: Allergies Allergy/AdvReac Type Severity Reaction Status Date / Time prochlorperazine edisylate * Allergy Severe Edema Verified 08/03/20 13:47 [From Compazine] prochlorperazine maleate * Allergy Severe Edema Verified 08/03/20 13:47 [From Compazine] Sulfa (Sulfonamide Allergy Severe Nausea Verified 08/03/20 13:47 Antibiotics) tetracycline [Tetracycline] Allergy Nausea Verified 08/03/20 13:47 - Social History Does the pt smoke?: No Smoking Status: Never smoker Does the pt drink ETOH?: Yes Does the pt have substance abuse?: No - Immunizations Immunizations are current?: Yes - POLST Patient has POLST: No PD ED PE EXPANDED - General General: Alert, No acute distress, Well developed/nourished - HEENT HEENT: Atraumatic, PERRL, Moist mucous membranes - Neck Neck: Supple w/out meningeal sx. No: Adenopathy - Cardiac Cardiac: Regular Rate, Regular Rhythm, Radial strong equal, Cap refill < 2 sec - Respiratory Respiratory: No: Distress, Labored, Wheezing, Rhonchi, Rales - Abdomen Abdomen: Normal Bowel sounds. No: Tender to palpation - Neuro Neuro: Alert and Oriented X 3, CNII-XII intact Results - Vitals Vitals: Vital Signs - 24 hr 08/03/20 13:48 Temperature 37.4 C Heart Rate 101 H Respiratory 18 Rate Blood Pressure 108/62 O2 Saturation 98 Oxygen O2 Source Room air PD MEDICAL DECISION MAKING - ED course Complexity details: reviewed results, re-evaluated patient, considered differential, d/w patient ED course: This is a rather well-appearing 79-year-old female presents emergency department with 2 to 3 days of cough and low-grade temperature elevation of 100.2. She does report to me that she was screened for COVID-19 yesterday the results are pending. Her on exam she appears very well and is afebrile. Her saturations are 98 to 100% on room air. She is in no distress. Cardiopulmonary auscultation is unrevealing without any rales or rhonchi. Today we will screen her for influenza. I will prescribe Tessalon Perles to help noreen the cough. Will defer any imaging given the short duration of symptoms and lack of other history such as COPD or diabetes. Patient is to return to the emergency depa rtment with worsening symptoms or fevers. Departure - Departure Disposition: 01 Home, Self Care Clinical Impression: Upper respiratory disease Condition: Stable Record reviewed to determine appropriate education?: Yes Prescriptions: Benzonatate [Tessalon] 100 mg PO TID PRN #30 capsule PRN Reason: Cough Comments: Yue your lungs sound very clear today. We are screening you for influenza. This is a virus that can often cause cough and low-grade temperature elevations. Because you were screened for COVID-19 yesterday you must remain in quarantine until those results are known. In order to help with the cough I will prescribe some Tessalon Perles. I do recommend that you continue to do the VapoRub and steam at home. If at any point you develop shortness of breath, have chest pain, feel exceedingly faint or weak please return to the ER for a second look.
[2020-08-03 15:33] VITALS: BP 110/62
== END 2020-08-03 15:40 | disposition home or self-care (01) ==
LOC: ED 13:32
DX: J06.9 Acute upper respiratory infection, unspecified (principal)
CPT/HCPCS: 87275; 87276; 99282; 99283

== ENCOUNTER 2020-08-06 17:02 | Emergency (ER) | payer MEDICARE, OTHER ==
[2020-08-06] MEDS ORDERED: ALBUTEROL 1 PUFF INH STA (17:52)
--- NOTE | 2020-08-06 17:52 | ED Physician Documentation ---
PD HPI URI - Stated complaint Stated Complaint: SOA/FEVER - Chief complaint Chief Complaint: Resp - History obtained from History obtained from: Patient - Additional information Additional information: Very healthy 79-year-old woman has been sick for exactly a week with nonproductive cough, fevers up to 100.4. She has had 2 - recent Covid tests. No shortness of breath. She is on benzonatate and Delsym which are not helping too much. Denies pedal edema or calf pain. No sick contacts. 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 HEENT: None Psych: None Musculoskeletal: Chronic back pain, Other Derm: Eczema - Past Surgical History Past Surgical History: Yes Ortho: Other - Present Medications Home Medications: Ambulatory Orders Medication Instructions Recorded Confirmed Cyclobenzaprine [Flexeril] 10 mg PO TID PRN 06/12/16 07/24/20 Liotrix [Thyrolar-3] 1 tab PO DAILY 06/12/16 07/24/20 buPROPion [Wellbutrin Xl] 150 mg PO DAILY 06/12/16 07/24/20 Valacyclovir HCl [Valacyclovir] 1 tab PO DAILY 09/14/17 07/24/20 Benzonatate [Tessalon] 100 mg PO TID PRN #30 capsule 08/03/20 Albuterol Sulf [Ventolin Hfa 1 - 2 puffs INH Q4HR PRN #1 inhaler 08/06/20 Inhaler] guaiFENesin/CODEINE [Robitussin AC] 5 - 10 ml PO Q6H PRN #120 ml 08/06/20 - Allergies Allergies/Adverse Reactions: Allergies Allergy/AdvReac Type Severity Reaction Status Date / Time prochlorperazine edisylate * Allergy Severe Edema Verified 08/06/20 17:19 [From Compazine] prochlorperazine maleate * Allergy Severe Edema Verified 08/06/20 17:19 [From Compazine] Sulfa (Sulfonamide Allergy Severe Nausea Verified 08/06/20 17:19 Antibiotics) tetracycline [Tetracycline] Allergy Nausea Verified 08/06/20 17:19 - Social History Does the pt smoke?: No Smoking Status: Never smoker Does the pt drink ETOH?: Yes Does the pt have substance abuse?: No - Immunizations Immunizations are current?: Yes - POLST Patient has POLST: No PD ED PE NORMAL - Vitals Vital signs reviewed: Yes - General General: Alert and oriented X 3, No acute distress - Cardiac Cardiac: RRR, No murmur - Respiratory Respiratory: No respiratory distress, Other (Mildly diffusely wheezy with a bronchitic cough, no focal findings otherwise.) - Neuro Neuro: Alert and oriented X 3, Normal speech Results - Vitals Vitals: Vital Signs - 24 hr 08/06/20 08/06/20 08/06/20 17:08 18:00 18:48 Temperature 37.2 C Heart Rate 96 100 97 Respiratory 16 16 20 Rate Blood Pressure 107/61 110/65 O2 Saturation 94 95 Oxygen O2 Source Room air - Rads (name of study) 2v chest Radiology: EMP read contemporaneously (NAD) PD MEDICAL DECISION MAKING - ED course ED course: 79-year-old woman with what says like a viral syndrome causing bronchitis. She has had 2 - Covid test in the last weeks I do not see the need to repeat. Chest x-ray was clear. Feeling better after albuterol. Departure - Departure Disposition: 01 Home, Self Care Clinical Impression: Acute viral bronchitis Condition: Good Record reviewed to determine appropriate education?: Yes Instructions: ED Bronchitis Asthmatic Prescriptions: Albuterol Sulf [Ventolin Hfa Inhaler] 1 - 2 puffs INH Q4HR PRN #1 inhaler PRN Reason: Shortness Of Air/Wheezing guaiFENesin/CODEINE [Robitussin AC] 5 - 10 ml PO Q6H PRN #120 ml PRN Reason: Cough Comments: No evidence of lung issue except for the wheezing today. The albuterol should help, do not drink or drive while taking codeine. Return if worsening. Discharge Date/Time: 08/06/20 18:49
--- NOTE | 2020-08-06 18:08 | XRAY Report ---
PROCEDURE: Chest 2 View X-Ray INDICATIONS: cough TECHNIQUE: 2 view(s) of the chest. COMPARISON: None. FINDINGS: Surgical changes and devices: None. Lungs and pleura: No pleural effusions or pneumothorax. Lungs are clear. Mediastinum: Mediastinal contours are normal. Heart size is normal. Bones and chest wall: No suspicious bony abnormalities. Soft tissues appear unremarkable. IMPRESSION: No acute cardiopulmonary pathology. Reviewed by: Yury Lee MD on 08/06/2020 6:07 PM [facility] Approved by: Yury Lee MD on 08/06/2020 6:07 PM [facility] Station ID: [id number]
[2020-08-06 18:49] VITALS: BP 110/65
== END 2020-08-06 18:49 | disposition home or self-care (01) ==
LOC: ED 17:02
DX: J20.8 Acute bronchitis due to other specified organisms (principal)
CPT/HCPCS: 94640; 94664; 99283

== ENCOUNTER 2020-08-15 19:26 | Emergency (ER) | payer MEDICARE, OTHER ==
[2020-08-15] MEDS ORDERED: SODIUM CHLORIDE 0.9% 1,000 ML IV STA (20:12)
--- NOTE | 2020-08-15 20:26 | ED Physician Documentation ---
History of Present Illness - Stated complaint Stated Complaint: SOA - Chief complaint Chief Complaint: Resp - History obtained from History obtained from: Patient - Additonal information Additional information: Patient comes emergency department with chief complaint of feeling tired and noticing that her heart rate has been above 100 every time she checked for the last 10 days. Patient states that since being diagnosed with an upper respiratory infection a couple of weeks ago, she has been using albuterol twice a day, which is not a normal medication for her. She states that she was trying to drink plenty of water but she has not been as much the last couple days. She states her appetite has been decreased for the last month and that she cannot bring herself to eat because it causes her some nausea. The patient states she has been checking her heart rate 5 times a day, because she is tired. She also states she is sleeping more than she normally does, and that she slept 14 hours a couple of days ago. Patient states she is usually very healthy. She has been seen 3 other times in our emergency department this month, both for the current illness and for calf pain at the beginning of the month. She was worked up at that time and negative for DVT. The patient had a negative chest x-ray on August 06 and has had 2 (-) Covid test throughout the course of this illness. She is also been tested for influenza and this was also negative. The patient denies any chest pain. No fevers. She states her cough has gotten better and that she was put on a course of antibiotics for bronchitis during this illness. She denies being on prednisone at any point. Patient denies any sputum production. No shortness of breath. She does have a history of hypothyroidism and is on medication for this. She has not had any recent dose changes. No cardiac issues chronically. No other complaints at this time. Review of Systems Ten Systems: 10 systems reviewed and negative Constitutional: reports: Fatigue. denies: Fever, Chills Eyes: reports: Reviewed and negative Ears: reports: Reviewed and negative Nose: reports: Reviewed and negative. denies: Rhinorrhea / runny nose Throat: reports: Reviewed and negative Cardiac: reports: Pedal edema (several days ago, now better after elevation). denies: Chest pain / pressure Respiratory: reports: Cough. denies: Dyspnea GI: reports: Nausea. denies: Abdominal Pain, Vomiting : reports: Reviewed and negative. 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 HEENT: None Psych: Depression Musculoskeletal: Chronic back pain, Other Derm: Eczema - Past Surgical History Past Surgical History: Yes Ortho: Other - Present Medications Home Medications: Ambulatory Orders Medication Instructions Recorded Confirmed buPROPion [Wellbutrin Xl] 150 mg PO DAILY 06/12/16 07/24/20 Valacyclovir HCl [Valacyclovir] 1 tab PO DAILY 09/14/17 07/24/20 Benzonatate [Tessalon] 100 mg PO TID PRN #30 capsule 08/03/20 Albuterol Sulf [Ventolin Hfa 1 - 2 puffs INH Q4HR PRN #1 inhaler 08/06/20 Inhaler] Amox/Clav 875/125 [Augmentin 1 tab PO BID 08/15/20 08/15/20 875/125] Ondansetron Odt [Zofran] 4 mg TL Q6H PRN #10 tablet 08/15/20 - Allergies Allergies/Adverse Reactions: Allergies Allergy/AdvReac Type Severity Reaction Status Date / Time prochlorperazine edisylate * Allergy Severe Edema Verified 08/15/20 19:57 [From Compazine] prochlorperazine maleate * Allergy Severe Edema Verified 08/15/20 19:57 [From Compazine] Sulfa (Sulfonamide Allergy Severe Nausea Verified 08/15/20 19:57 Antibiotics) tetracycline [Tetracycline] Allergy Nausea Verified 08/15/20 19:57 - Social History Does the pt smoke?: No Smoking Status: Never smoker Does the pt drink ETOH?: Yes Does the pt have substance abuse?: No - Immunizations Immunizations are current?: Yes - POLST Patient has POLST: No PD ED PE NORMAL - Vitals Vital signs reviewed: Yes - General General: Alert and oriented X 3, No acute distress, Well developed/nourished, Other (Patient Emil speaks very quietly, to the point that it is sometimes difficult to understand what she is saying. 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, No motor deficit - Psych Psych: Normal mood, Normal affect Results - Vitals Vitals: Vital Signs - 24 hr 08/15/20 08/15/20 08/15/20 19:30 19:46 21:28 Temperature 37.3 C 37.3 C Heart Rate 102 H 105 H 87 Respiratory 16 24 16 Rate Blood Pressure 129/73 129/73 115/60 O2 Saturation 96 99 96 Oxygen O2 Source Room air - Labs Labs: Laboratory Tests 08/15/20 08/15/20 08/15/20 20:20 20:20 20:20 WBC 8.5 RBC 3.63 L Hgb 10.6 L Hct 32.0 L MCV 88.2 MCH 29.2 MCHC 33.1 RDW 12.9 Plt Count 298 MPV 8.3 Neut # (Auto) Not Reportable Lymph # (Auto) Not Reportable Bradley # (Auto) Not Reportable Eos # (Auto) Not Reportable Baso # (Auto) Not Reportable Absolute Nucleated RBC Not Reportable Total Counted 100 Band Neuts % (Manual) 3 Abnorm Lymph % (Manual) 0 Nucleated RBC % Not Reportable Neutrophils # (Manual) 7.1 H Lymphocytes # (Manual) 1.0 L Monocytes # (Manual) 0.4 Eosinophils # (Manual) 0.0 Basophils # (Manual) 0.0 Differential Comment MANUAL DIFFERENTIAL Platelet Estimate NORMAL (130-450,000) Platelet Morphology NORMAL APPEARANCE RBC Morph Micro Appear NORMAL APPEARANCE Sodium 125 L Potassium 4.0 Chloride 91 L Carbon Dioxide 23 Anion Gap 11.0 BUN 16 Creatinine 0.7 Estimated GFR (MDRD) 81 L Glucose 119 H Calcium 9.0 Total Bilirubin 0.6 AST 35 ALT 41 Alkaline Phosphatase 61 B-Natriuretic Peptide Total Protein 6.8 Albumin 3.1 L Globulin 3.7 Albumin/Globulin Ratio 0.8 L TSH 1.38 08/15/20 20:20 WBC RBC Hgb Hct MCV MCH MCHC RDW Plt Count MPV Neut # (Auto) Lymph # (Auto) Bradley # (Auto) Eos # (Auto) Baso # (Auto) Absolute Nucleated RBC Total Counted Band Neuts % (Manual) Abnorm Lymph % (Manual) Nucleated RBC % Neutrophils # (Manual) Lymphocytes # (Manual) Monocytes # (Manual) Eosinophils # (Manual) Basophils # (Manual) Differential Comment Platelet Estimate Platelet Morphology RBC Morph Micro Appear Sodium Potassium Chloride Carbon Dioxide Anion Gap BUN Creatinine Estimated GFR (MDRD) Glucose Calcium Total Bilirubin AST ALT Alkaline Phosphatase B-Natriuretic Peptide 80 Total Protein Albumin Globulin Albumin/Globulin Ratio TSH - Rads (name of study) CXR Radiology: Final report received, EMP read indepedently, See rad report (neg) PD MEDICAL DECISION MAKING - ED course Complexity details: reviewed results, re-evaluated patient, considered differential, d/w patient ED course: Patient that I do not find evidence of pericarditis at this time. The patient's heart rate has actually been in the mid 90s throughout the entire time I have been in the emergency in the patient's room. She has been placed on the patient monitor from the beginning of her visit. Her oxygen saturation has been in the mid 90s on room air and lung exam is normal. Patient does not have any edema at this time. I am not sure what is causing her fatigue, though I have discussed with the patient that this may just be related to the illness that she has had. The patient's blood pressure is normal here in the ED. I am giving her a liter of IV fluid and checking basic laboratory studies, as well as TSH since she is fatigued and has a history of hypothyroidism. I will check a chest x-ray because the patient's oxygen saturation is a little lower today than it was the last time she was here, though my suspicion for a major process is low. Her work-up was negative, except for hyponatremia with sodium 125. I discussed with the patient that while the sodium level is not dangerously low, it could be low enough to make her symptomatic. I have advised her to take the oral dissolving Zofran, which I will prescribe, and to try to at least take some soup broth, which has a lot of sodium in it. I discussed with the patient that it is important to try to eat something if at all possible. I would like the patient to follow-up in a week with her primary care physician and I have discussed this with her. I have not found an emergent cause of the patient's symptoms tonight and she is deemed stable for discharge home. Departure - Departure Disposition: 01 Home, Self Care Clinical Impression: Hyponatremia Upper respiratory infection Qualifiers: URI type: unspecified viral URI Qualified Code(s): J06.9 - Acute upper respi ratory infection, unspecified Fatigue Qualifiers: Fatigue type: unspecified Qualified Code(s): R53.83 - Other fatigue Condition: Stable Instructions: ED Hyponatremia, ED Viral Syndrome Prescriptions: Ondansetron Odt [Zofran] 4 mg TL Q6H PRN #10 tablet PRN Reason: Nausea / Vomiting Comments: Your X-ray looks very good. Your labs show that your your thyroid stimulating hormone level is normal, and your sodium is moderately low. It is not dangerously low in terms of causing serious medical issues, but it is low enough that it may cause you to feel tired. It is very important that you try to eat some food each day and this will help your sodium to improve. You will also need to follow-up with your primary care physician in about a week to have this rechecked. Please take the nausea medication prescribed if you need it to be able to eat. You do have some degree of anemia, though this is not severe. Depending how chronic this is, it may or may not be contributing to the tiredness you have been feeling. While in the emergency department, your heart rate has been normal. It is advisable not to check it so often and to allow yourself to become anxious over the symptoms you are having, as this will drive your heart rate up. Additionally, the albuterol you have been using is notorious for raising the heart rate, and this has almost certainly been a contributing factor over the past week. Your lungs are clear today, so whether or not you use the inhaler is up to you. However, do be aware that if you use the inhaler it may put your heart rate up. The heart rate you are reporting is not dangerously high, and we have not found an emergent cause for it tonight. However, if you do want further evaluation of this, then you may talk to your primary care physician about wearing an event monitor for a prescribed amount of time to keep track of your heart rate and rhythm. If you develop any chest pain or severe shortness of breath, you should return to the emergency department. Otherwise, please schedule an appointment with your doctor to be seen in about 1 week for a recheck. Please try to get plenty of water to drink to help yourself stay hydrated. Discharge Date/Time: 08/15/20 21:49
[2020-08-15 20:33] LABS: BASOPHILS % (AUTO) 0.6 %; EOSINOPHILS % (AUTO) 1.9 %; HGB - HEMOGLOBIN 10.6 g/dL (12.0-16.0); MEAN CORPUSCULAR HEMOGLOBIN 29.2 pg (27.0-31.0); MEAN CORPUSCULAR HGB CONC 33.1 g/dL (32.0-36.0); MEAN CORPUSCULAR VOLUME 88.2 fL (81.0-99.0); MEAN PLATELET VOLUME 8.3 fL (7.9-10.8); MONOCYTES % (AUTO) 6.7 %; NEUTROPHILS % (AUTO) 66.9 %; PLT - PLATELET COUNT 298 10^3/uL (130-450); RED BLOOD COUNT 3.63 10^6/uL (4.20-5.40); RED CELL DISTRIBUTION WIDTH 12.9 % (12.0-15.0); WHITE BLOOD COUNT 8.5 x10^3/uL (4.8-10.8)
[2020-08-15 20:35] LABS: ABNORMAL LYMPHS % (MANUAL) 0 %
[2020-08-15 20:45] LABS: ALBUMIN 3.1 g/dL (3.2-5.5); ALBUMIN/GLOBULIN RATIO 0.8 (1.0-2.2); BILIRUBIN,TOTAL 0.6 mg/dL (0.2-1.0); CREATININE 0.7 mg/dL (0.4-1.0); TOTAL PROTEIN 6.8 g/dL (6.7-8.2)
[2020-08-15 20:59] LABS: BAND NEUTROPHILS % (MANUAL) 3 %; LYMPHOCYTES % (MANUAL) 12 %; MONOCYTES # (MANUAL) 0.4 10^3/uL (0.0-1.0); PLATELET ESTIMATE, MANUAL NORMAL (130-450,000) (NORMAL); PLATELET MORPHOLOGY NORMAL APPEARANCE (NORMAL); RBC MORPHOLOGY (MULTIPLE) NORMAL APPEARANCE (NORMAL)
[2020-08-15 21:00] LABS: DIFFERENTIAL COMMENT MANUAL DIFFERENTIAL
--- NOTE | 2020-08-15 21:00 | XRAY Report ---
PROCEDURE: Chest 1 View X-Ray INDICATIONS: chest pain TECHNIQUE: One view of the chest was acquired. COMPARISON: CT abdomen and pelvis dated 10/14/2013 and chest radiograph dated 08/06/2020 FINDINGS: Surgical changes and devices: None. Lungs and pleura: No pleural effusions or pneumothorax. Lungs are clear. Mediastinum: Mediastinal contours appear normal. Heart size is normal. Bones and chest wall: No suspicious bony lesions. Overlying soft tissues appear unremarkable. IMPRESSION: Chest without acute cardiopulmonary abnormalities. Focal airspace disease. Reviewed by: Frank Anthony MD on 08/15/2020 8:59 PM [facility] [place] Approved by: Frank Anthony MD on 08/15/2020 8:59 PM [facility] [place] Station ID: [id number]
[2020-08-15 21:29] VITALS: BP 115/60
== END 2020-08-15 21:49 | disposition home or self-care (01) ==
LOC: ED 19:26
DX: E87.1 Hypo-osmolality and hyponatremia (principal); J06.9 Acute upper respiratory infection, unspecified; R53.83 Other fatigue; R11.0 Nausea; E03.9 Hypothyroidism, unspecified; D64.9 Anemia, unspecified
CPT/HCPCS: 36415; 80053; 83880; 84443; 85025; 96360; 99285

== ENCOUNTER 2020-08-17 11:46 | Emergency (ER) | payer MEDICARE, OTHER ==
[2020-08-17 12:52] LABS: BASOPHILS # (AUTO) 0.1 10^3/uL (0.0-0.1); BASOPHILS % (AUTO) 0.6 %; EOSINOPHILS # (AUTO) 0.2 10^3/uL (0.0-0.7); EOSINOPHILS % (AUTO) 2.4 %; HCT - HEMATOCRIT 32.8 % (37.0-47.0); HGB - HEMOGLOBIN 10.9 g/dL (12.0-16.0); LYMPHOCYTES # (AUTO) 1.9 10^3/uL (1.5-3.5); LYMPHOCYTES % (AUTO) 23.1 %; MEAN CORPUSCULAR HEMOGLOBIN 29.7 pg (27.0-31.0); MEAN CORPUSCULAR HGB CONC 33.2 g/dL (32.0-36.0); MEAN CORPUSCULAR VOLUME 89.4 fL (81.0-99.0); MONOCYTES # (AUTO) 0.6 10^3/uL (0.0-1.0); MONOCYTES % (AUTO) 6.8 %; NEUTROPHILS # (AUTO) 5.4 10^3/uL (1.5-6.6); NEUTROPHILS % (AUTO) 66.5 %; PLT - PLATELET COUNT 256 10^3/uL (130-450); RED BLOOD COUNT 3.67 10^6/uL (4.20-5.40); RED CELL DISTRIBUTION WIDTH 13.2 % (12.0-15.0); WHITE BLOOD COUNT 8.2 x10^3/uL (4.8-10.8)
--- NOTE | 2020-08-17 12:54 | ED Physician Documentation ---
History of Present Illness - Stated complaint Stated Complaint: FEET SWELLING - Chief complaint Chief Complaint: General - History obtained from History obtained from: Patient - History of Present Illness Timing: How many days ago (4) Pain level max: 0 Pain level now: 0 - Additonal information Additional information: 79-year-old female presents to the emergency department with complaints of bilateral feet swelling for the past 4 days. Nothing makes it better or worse. No difficulty breathing. No chest pain. Has recently been on Augmentin for "bronchitis". She states she is improving from that. 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 HEENT: None Psych: Depression Musculoskeletal: Chronic back pain, Other Derm: Eczema - Past Surgical History Past Surgical History: Yes Ortho: Other - Present Medications Home Medications: Ambulatory Orders Medication Instructions Recorded Confirmed buPROPion [Wellbutrin Xl] 150 mg PO DAILY 06/12/16 07/24/20 Valacyclovir HCl [Valacyclovir] 1 tab PO DAILY 09/14/17 07/24/20 Benzonatate [Tessalon] 100 mg PO TID PRN #30 capsule 08/03/20 Albuterol Sulf [Ventolin Hfa 1 - 2 puffs INH Q4HR PRN #1 inhaler 08/06/20 Inhaler] Amox/Clav 875/125 [Augmentin 1 tab PO BID 08/15/20 08/15/20 875/125] Ondansetron Odt [Zofran] 4 mg TL Q6H PRN #10 tablet 08/15/20 - Allergies Allergies/Adverse Reactions: Allergies Allergy/AdvReac Type Severity Reaction Status Date / Time prochlorperazine edisylate * Allergy Severe Edema Verified 08/17/20 12:01 [From Compazine] prochlorperazine maleate * Allergy Severe Edema Verified 08/17/20 12:01 [From Compazine] Sulfa (Sulfonamide Allergy Severe Nausea Verified 08/17/20 12:01 Antibiotics) tetracycline [Tetracycline] Allergy Nausea Verified 08/17/20 12:01 - Social History Does the pt smoke?: No Smoking Status: Never smoker Does the pt drink ETOH?: Yes Does the pt have substance abuse?: No - Immunizations Immunizations are current?: Yes - POLST Patient has POLST: No PD ED PE NORMAL - Vitals Vital signs reviewed: Yes - General General: Alert and oriented X 3, No acute distress, Well developed/nourished - HEENT HEENT: Moist mucous membranes - Neck Neck: Supple, no meningeal sign - Cardiac Cardiac: RRR, Strong equal pulses - Respiratory Respiratory: No respiratory distress, Clear bilaterally - Abdomen Abdomen: Soft, Non tender, Non distended - Derm Derm: Warm and dry - Extremities Extremities: No edema, Other (normal examination of the bilateral feet and ankles. No edema) - Neuro Neuro: Alert and oriented X 3 - Psych Psych: Normal mood, Normal affect Results - Vitals Vitals: Vital Signs - 24 hr 08/17/20 08/17/20 12:01 13:34 Temperature 98.7 C H 37.2 C Heart Rate 83 84 Respiratory 18 12 Rate Blood Pressure 97/55 L 111/65 O2 Saturation 95 100 Oxygen O2 Source Room air - Labs Labs: Laboratory Tests 08/17/20 08/17/20 12:49 12:49 WBC 8.2 RBC 3.67 L Hgb 10.9 L Hct 32.8 L MCV 89.4 MCH 29.7 MCHC 33.2 RDW 13.2 Plt Count 256 MPV 8.0 Neut # (Auto) 5.4 Lymph # (Auto) 1.9 [place] # (Auto) 0.6 Eos # (Auto) 0.2 Baso # (Auto) 0.1 Absolute Nucleated RBC 0.00 Nucleated RBC % 0.0 Sodium 129 L Potassium 4.5 Chloride 97 L Carbon Dioxide 24 Anion Gap 8.0 BUN 18 Creatinine 0.8 Estimated GFR (MDRD) 69 L Glucose 109 H Calcium 9.1 Phosphorus 3.4 Magnesium 2.0 Total Bilirubin 0.4 AST 30 ALT 35 Alkaline Phosphatase 60 Total Protein 6.2 L Albumin 3.1 L Globulin 3.1 Albumin/Globulin Ratio 1.0 Ethyl Alcohol < 5.0 PD MEDICAL DECISION MAKING - ED course Complexity details: reviewed results, re-evaluated patient, considered differential, d/w patient ED course: 79-year-old female with improving hyponatremia. No significant edema on my evaluation. No evidence of heart failure. No hypoxia or respiratory distress. We will have her continue her current medications and follow-up with her doctor. Patient counseled regarding signs and symptoms for which I believe and urgent re-evaluation would be necessary. Patient with good understanding of and agreement to plan and is comfortable going home at this time This document was made in part using voice recognition software. While efforts are made to proofread this document, sound alike and grammatical errors may occur. Departure - Departure Disposition: Home, Self Care Clinical Impression: Edema, peripheral Condition: Good Instructions: ED Edema Legs Bilateral Follow-Up: June Peña ARNP, CYCLE ANALYST-C [Primary Care Provider] - Within 1 week Comments: Your legs do not appear significantly swollen today. Your sodium levels are improving. Continue to rehydrate yourself. Follow-up with your doctor next week for repeat evaluation.
[2020-08-17 13:05] LABS: ALBUMIN 3.1 g/dL (3.2-5.5); ALKALINE PHOSPHATASE 60 IU/L (42-121); ALT ALANINE AMINOTRANSFERASE 35 IU/L (10-60); AST ASPARTATE AMINOTRANSFERASE 30 IU/L (10-42); BILIRUBIN,TOTAL 0.4 mg/dL (0.2-1.0); BUN - BLOOD UREA NITROGEN 18 mg/dL (6-20); CALCIUM 9.1 mg/dL (8.5-10.3); CARBON DIOXIDE - CO2 24 mmol/L (21-32); CHLORIDE 97 mmol/L (101-111); CREATININE 0.8 mg/dL (0.4-1.0); ETOH - ETHANOL < 5.0 mg/dL; GFR - MDRD 69 (>89); GLUCOSE 109 mg/dL (70-100); PHOSPHORUS 3.4 mg/dL (2.5-4.6); POTASSIUM 4.5 mmol/L (3.5-5.0); SODIUM 129 mmol/L (135-145); TOTAL PROTEIN 6.2 g/dL (6.7-8.2)
[2020-08-17 13:34] VITALS: BP 111/65
== END 2020-08-17 13:40 | disposition home or self-care (01) ==
LOC: ED 11:46
DX: R60.0 Localized edema (principal); E87.1 Hypo-osmolality and hyponatremia
CPT/HCPCS: 36415; 80053; 80320; 83735; 84100; 85025; 99283; 99284

== ENCOUNTER 2020-08-24 07:00 | Outpatient (CLI) | payer MEDICARE, OTHER ==
[2020-08-24 18:59] LABS: ABSOLUTE RETICS # AUTO 0.046 10^6/uL (0.020-0.110); RED BLOOD COUNT 3.73 10^6/uL (4.20-5.40)
[2020-08-24 19:29] LABS: CREATININE 0.8 mg/dL (0.4-1.0)
[2020-08-24 19:40] LABS: FERRITIN 154.7 ng/mL (11.0-306.8)
== END 2020-08-24 23:59 | disposition home or self-care (01) ==
LOC: LAB.WCP 07:00
PROVIDERS: ATTEND Family Medicine
DX: E87.1 Hypo-osmolality and hyponatremia (principal); D64.9 Anemia, unspecified
CPT/HCPCS: 36415; 80048; 82607; 82728; 82746; 83540; 84466; 85045

== ENCOUNTER 2020-09-07 17:27 | Emergency (ER) | payer MEDICARE, OTHER ==
[2020-09-07] MEDS ORDERED: SODIUM CHLORIDE 0.9% 1,000 ML IV STA ×3 (17:42→19:33)
[2020-09-07 18:14] LABS: BASOPHILS # (AUTO) 0.1 10^3/uL (0.0-0.1); BASOPHILS % (AUTO) 0.7 %; EOSINOPHILS # (AUTO) 0.1 10^3/uL (0.0-0.7); EOSINOPHILS % (AUTO) 1.3 %; LYMPHOCYTES # (AUTO) 1.2 10^3/uL (1.5-3.5); LYMPHOCYTES % (AUTO) 17.4 %; MEAN CORPUSCULAR HEMOGLOBIN 28.9 pg (27.0-31.0); MEAN CORPUSCULAR HGB CONC 32.4 g/dL (32.0-36.0); MEAN CORPUSCULAR VOLUME 89.2 fL (81.0-99.0); MEAN PLATELET VOLUME 8.9 fL (7.9-10.8); MONOCYTES # (AUTO) 0.6 10^3/uL (0.0-1.0); MONOCYTES % (AUTO) 8.9 %; NEUTROPHILS % (AUTO) 71.4 %; PLT - PLATELET COUNT 283 10^3/uL (130-450); RED BLOOD COUNT 3.81 10^6/uL (4.20-5.40); RED CELL DISTRIBUTION WIDTH 13.6 % (12.0-15.0)
[2020-09-07 18:23] LABS: ALBUMIN 3.7 g/dL (3.2-5.5); ALBUMIN/GLOBULIN RATIO 1.1 (1.0-2.2); BILIRUBIN,TOTAL 0.7 mg/dL (0.2-1.0); CALCIUM 9.6 mg/dL (8.5-10.3); CREATININE 0.9 mg/dL (0.4-1.0); MAGNESIUM 2.1 mg/dL (1.7-2.8); PHOSPHORUS 3.2 mg/dL (2.5-4.6); TOTAL PROTEIN 7.2 g/dL (6.7-8.2)
[2020-09-07] MEDS ORDERED: IOVERSOL 320 100 ML VIAL IVP ONE ×2 (18:38→19:05)
--- NOTE | 2020-09-07 18:40 | ED Physician Documentation ---
History of Present Illness - Stated complaint Stated Complaint: DEHYDRATION - Chief complaint Chief Complaint: Abd Pain - History obtained from History obtained from: Patient - History of Present Illness Timing: Other (1 month) Pain level max: 0 Pain level now: 0 - Additonal information Additional information: 79-year-old female presents to the emergency department with nausea for the past month. She states that she saw her doctor today who felt like she was dehydrated and needed IV fluids. Patient has not had any vomiting. No abdominal pain. She states that she saw a dietitian who told her that her stomach had "shut down". She has a new nutrition plan that she is following. No headaches. No focal neurological deficits. Nothing makes it better or worse. Does have Zofran at home. Review of Systems Constitutional: denies: Fever, Chills Respiratory: denies: Cough GI: reports: Nausea. 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 HEENT: None Psych: Depression Musculoskeletal: Chronic back pain, Other Derm: Eczema - Past Surgical History Past Surgical History: Yes Ortho: Other - Present Medications Home Medications: Ambulatory Orders Medication Instructions Recorded Confirmed buPROPion [Wellbutrin Xl] 150 mg PO DAILY 06/12/16 09/07/20 Valacyclovir HCl [Valacyclovir] 1 tab PO DAILY 09/14/17 09/07/20 Benzonatate [Tessalon] 100 mg PO TID PRN #30 capsule 08/03/20 09/07/20 Albuterol Sulf [Ventolin Hfa 1 - 2 puffs INH Q4HR PRN #1 inhaler 08/06/20 09/07/20 Inhaler] Ondansetron Odt [Zofran] 4 mg TL Q6H PRN #10 tablet 08/15/20 09/07/20 - Allergies Allergies/Adverse Reactions: Allergies Allergy/AdvReac Type Severity Reaction Status Date / Time prochlorperazine edisylate * Allergy Severe Edema Verified 09/07/20 17:37 [From Compazine] prochlorperazine maleate * Allergy Severe Edema Verified 09/07/20 17:37 [From Compazine] Sulfa (Sulfonamide Allergy Severe Nausea Verified 09/07/20 17:37 Antibiotics) tetracycline [Tetracycline] Allergy Nausea Verified 09/07/20 17:37 - Social History Does the pt smoke?: No Smoking Status: Never smoker Does the pt drink ETOH?: Yes Does the pt have substance abuse?: No - Immunizations Immunizations are current?: Yes - POLST Patient has POLST: No PD ED PE NORMAL - Vitals Vital signs reviewed: Yes - General General: Alert and oriented X 3, No acute distress, Well developed/nourished - HEENT HEENT: PERRL, Moist mucous membranes, Pharynx benign - Neck Neck: Supple, no meningeal sign - Cardiac Cardiac: RRR, Strong equal pulses - Respiratory Respiratory: No respiratory distress, Clear bilaterally - Abdomen Abdomen: Normal bowel sounds, Soft, Non tender, Non distended - Derm Derm: Warm and dry - Extremities Extremities: No edema - Neuro Neuro: Alert and oriented X 3 - Psych Psych: Normal mood, Normal affect Results - Vitals Vitals: Vital Signs - 24 hr 09/07/20 09/07/20 09/07/20 17:33 17:36 18:44 Temperature 36.5 C 36.5 C Heart Rate 99 96 96 Respiratory 16 16 18 Rate Blood Pressure 150/87 H 147/82 H 135/74 H O2 Saturation 98 97 98 Oxygen O2 Source Room air - Labs Labs: Laboratory Tests 09/07/20 09/07/20 17:42 18:00 WBC 7.0 RBC 3.81 L Hgb 11.0 L Hct 34.0 L MCV 89.2 MCH 28.9 MCHC 32.4 RDW 13.6 Plt Count 283 MPV 8.9 Neut # (Auto) 5.0 Lymph # (Auto) 1.2 L [place] # (Auto) 0.6 Eos # (Auto) 0.1 Baso # (Auto) 0.1 Absolute Nucleated RBC 0.00 Nucleated RBC % 0.0 Sodium 128 L Potassium 4.0 Chloride 94 L Carbon Dioxide 23 Anion Gap 11.0 BUN 18 Creatinine 0.9 Estimated GFR (MDRD) 61 L Glucose 91 Calcium 9.6 Phosphorus 3.2 Magnesium 2.1 Total Bilirubin 0.7 AST 37 ALT 32 Alkaline Phosphatase 56 Total Protein 7.2 Albumin 3.7 Globulin 3.5 Albumin/Globulin Ratio 1.1 Lipase 39 - Rads (name of study) CT abdomen pelvis Radiology: Other (Awaiting results) PD MEDICAL DECISION MAKING - ED course Complexity details: reviewed results, re-evaluated patient, considered differential, d/w patient ED course: 79-year-old female presents to the emergency department with nausea for the past month. No abdominal pain. No vomiting. No diarrhea. Feels better after IV fluids here. Awaiting CT scan. Patient will likely be able to be discharged home if the CT scan is negative. Patient signed out to the oncoming emergency department physician. Departure - Departure Clinical Impression: Nausea Condition: Stable
--- NOTE | 2020-09-07 19:09 | CT Report ---
PROCEDURE: Abdomen/Pelvis W INDICATIONS: abd pain, nausea CONTRAST: IV CONTRAST: Optiray 320 ml: 100 PO CONTRAST: *NO PO CONTRAST TECHNIQUE: After the administration of IV contrast, 5 mm thick sections acquired from the diaphragms to the symp hysis. 5 mm thick coronal and sagittal reformats were acquired. For radiation dose reduction, the f ollowing was used: automated exposure control, adjustment of mA and/or kV according to patient size. COMPARISON: CT abdomen pelvis 10/15/2013, abdomen ultrasound 03/18/2010 FINDINGS: Image quality: Excellent. ABDOMEN: Lung bases: Lung bases are clear. Heart size is normal. Solid organs: Liver and spleen are normal in size . 7 mm low-attenuation focus is present in the pos terior right hepatic lobe, new compared to 2013. Gallbladder appears to be located lateral to the li chris. Biliary system is non dilated. Pancreas enhances normally. Mild prominence of the left adrenal gland, unchanged. Kidneys demonstrate normal size and enhancement, without hydronephrosis. Peritoneum and bowel: Bowel loops demonstrate normal wall thickness and caliber. No free fluid or a ir. Significant colonic stool is present without obstruction. Nodes and vessels: No retroperitoneal or mesenteric adenopathy by size criteria. Aorta and inferior vena cava are normal in size. Miscellaneous: No ventral hernias. PELVIS: Genitourinary: Bladder wall thickness is normal. Miscellaneous: No inguinal hernias or adenopathy. Bones: No suspicious bony lesions. No vertebral body compression fractures. IMPRESSION: 1. Significant colonic stool most consistent with constipation. No obstruction. 2. Hepatic cyst. Reviewed by: Tiffany Hastings MD on 09/07/2020 7:08 PM PST Approved by: Tiffany Hastings MD on 09/07/2020 7:08 PM PST Station ID: [id number]
[2020-09-07] MEDS ORDERED: DOCUSATE SODIUM 100 MG CAPSULE PO STA (19:33)
[2020-09-07 20:40] VITALS: BP 121/67
== END 2020-09-07 20:46 | disposition home or self-care (01) ==
LOC: ED 17:27
DX: R11.0 Nausea (principal); E86.0 Dehydration; K76.89 Other specified diseases of liver
CPT/HCPCS: 36415; 74177; 80053; 83690; 83735; 84100; 85025; 96360; 96361; 99283; 99284; A9270; Q9967

== ENCOUNTER 2020-09-11 15:31 | Observation (INO) | payer MEDICARE, OTHER ==
[2020-09-11] MEDS ORDERED: METOPROLOL 5 MG/5 ML VIAL IVP STA ×2 (15:48→16:07)
--- NOTE | 2020-09-11 15:50 | ED Physician Documentation ---
PD HPI CHEST PAIN - Stated complaint Stated Complaint: IRREG HR, FEELING FAINT - Chief complaint Chief Complaint: Cardiac - History obtained from History obtained from: Patient - Additional information Additional information: This is a very pleasant 79-year-old woman with history of palpitations and ectopy who was in her usual state of health about an hour ago doing dishes when she started to feel rapid hard heart pounding. There is very mild chest discomfort with it. She denies increased shortness of breath or pedal edema. No history of A. fib. 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 HEENT: None Psych: Depression Musculoskeletal: Chronic back pain, Other Derm: Eczema - Past Surgical History Past Surgical History: Yes Ortho: Other - Present Medications Home Medications: Ambulatory Orders Medication Instructions Recorded Confirmed buPROPion [Wellbutrin Xl] 150 mg PO DAILY 06/12/16 09/07/20 Valacyclovir HCl [Valacyclovir] 1 tab PO DAILY 09/14/17 09/07/20 Ondansetron [Zuplenz] 4 mg PO 09/11/20 Thyroid Pill 09/11/20 09/11/20 Ubidecarenone [Co Q-10] 09/11/20 - Allergies Allergies/Adverse Reactions: Allergies Allergy/AdvReac Type Severity Reaction Status Date / Time prochlorperazine edisylate * Allergy Severe Edema Verified 09/07/20 17:37 [From Compazine] prochlorperazine maleate * Allergy Severe Edema Verified 09/07/20 17:37 [From Compazine] Sulfa (Sulfonamide Allergy Severe Nausea Verified 09/07/20 17:37 Antibiotics) amoxicillin [From Augmentin] Allergy Unknown Verified 09/11/20 15:48 clavulanic acid Allergy Unknown Verified 09/11/20 15:48 [From Augmentin] tetracycline [Tetracycline] Allergy Nausea Verified 09/07/20 17:37 narcotics AdvReac Unknown Uncoded 09/11/20 15:49 - Social History Does the pt smoke?: No Smoking Status: Never smoker Does the pt drink ETOH?: Yes Does the pt have substance abuse?: No - Immunizations Immunizations are current?: Yes - POLST Patient has POLST: No PD ED PE NORMAL - Vitals Vital signs reviewed: Yes - General General: Alert and oriented X 3, No acute distress - HEENT HEENT: PERRL, EOMI - Neck Neck: Supple, no meningeal sign, No bony TTP - Cardiac Cardiac: Strong equal pulses, Other (Rapid and slightly irregular without murmur) - Respiratory Respiratory: No respiratory distress, Clear bilaterally - Abdomen Abdomen: Non tender - Back Back: No CVA TTP, No spinal TTP - Derm Derm: Normal color, Warm and dry - Extremities Extremities: No edema, No calf tenderness / cord - Neuro Neuro: Alert and oriented X 3, Normal speech Results - Vitals Vitals: Vital Signs - 24 hr 09/11/20 09/11/20 09/11/20 15:34 15:55 15:56 Temperature 36.7 C Heart Rate 154 H 145 H 160 H Respiratory 20 18 Rate Blood Pressure 135/81 H 94/81 H 109/85 H O2 Saturation 99 99 09/11/20 09/11/20 09/11/20 15:58 16:04 16:06 Temperature Heart Rate 144 H 140 H 128 H Respiratory 20 26 H 22 Rate Blood Pressure 95/74 96/77 98/73 O2 Saturation 96 97 97 09/11/20 09/11/20 09/11/20 16:24 16:33 16:44 Temperature Heart Rate 147 H 147 H 136 H Respiratory 23 22 Rate Blood Pressure 93/63 93/65 109/85 H O2 Saturation 99 96 09/11/20 09/11/20 09/11/20 16:54 17:00 17:41 Temperature 36.8 C Heart Rate 121 H 110 H 121 H Respiratory 23 18 22 Rate Blood Pressure 99/77 109/69 108/83 H O2 Saturation 97 99 100 09/11/20 17:50 Temperature Heart Rate 69 Respiratory 18 Rate Blood Pressure 105/93 H O2 Saturation 98 Oxygen O2 Source Room air - EKG (time done) 1538 Rate: Rate (enter#) (154) Rhythm: Atrial fibrillation [place]: Normal QRS: Normal Ischemia: ST depression (Lateral ST depression that is likely rate related) Computer interpretation: Agree with computer 1735 Rate: Rate (enter#) (122) Rhythm: Atrial flutter Intervals: Prolonged QT, LBBB Computer interpretation: Agree with computer 4145 Rate: Rate (enter#) (68) Rhythm: NSR [place]: Normal Intervals: Normal MD QRS: Normal Ischemia: Normal ST segments - Labs Labs: Laboratory Tests 09/11/20 09/11/20 09/11/20 15:45 15:45 15:45 WBC 6.6 RBC 4.22 Hgb 12.3 Hct 37.8 MCV 89.6 MCH 29.1 MCHC 32.5 RDW 13.6 Plt Count 258 MPV 9.0 Neut # (Auto) 4.5 Lymph # (Auto) 1.3 L [place] # (Auto) 0.6 Eos # (Auto) 0.2 Baso # (Auto) 0.0 Absolute Nucleated RBC 0.00 Nucleated RBC % 0.0 Sodium 132 L Potassium 3.5 Chloride 96 L Carbon Dioxide 25 Anion Gap 11.0 BUN 12 Creatinine 0.9 Estimated GFR (MDRD) 61 L Glucose 119 H Calcium 9.9 Magnesium 2.1 Total Bilirubin 0.6 AST 39 ALT 33 Alkaline Phosphatase 55 Troponin I High Sens 50.6 H* Total Protein 7.1 Albumin 3.8 Globulin 3.3 Albumin/Globulin Ratio 1.2 PD MEDICAL DECISION MAKING - ED course ED course: 79-year-old woman with new onset atrial fibrillation that is symptomatic with rapid ventricular response. She had been on beta-blockers in the past and preferred to trial this first.. She was given a dose of 5 mg of IV metoprolol and her heart rate went from about 150 to about 130. Subsequent 2.5 mg brought her heart rate down to about 120. This was followed by 10 mg of diltiazem which brought her rate down to about 110 and that she was started on a procainamide drip. During the procainamide drip she developed some changes on the monitor and a repeat EKG was done showing progression to a left bundle branch block. Note made of her troponin but she was pain-free. She had some chest pain earlier this morning. She asked for Zofran but her QTC had prolonged and discussed that we would need to give her something else for her nausea. Note made that she is allergic to Compazine. Subsequent to that though prior to sedating in cardioverting she spontaneously converted and her EKG was redone without long QTC or left bundle branch block. There was no ischemic changes all. Spoke with Dr. Martinez for admission at 1755. Departure - Departure Disposition: ED Place in Observation Clinical Impression: New onset a-fib, Atrial fibrillation with RVR, Elevated troponin Condition: Stable
[2020-09-11 15:53] LABS: BASOPHILS % (AUTO) 0.5 %; EOSINOPHILS # (AUTO) 0.2 10^3/uL (0.0-0.7); EOSINOPHILS % (AUTO) 2.9 %; HGB - HEMOGLOBIN 12.3 g/dL (12.0-16.0); LYMPHOCYTES # (AUTO) 1.3 10^3/uL (1.5-3.5); LYMPHOCYTES % (AUTO) 19.6 %; MEAN CORPUSCULAR HEMOGLOBIN 29.1 pg (27.0-31.0); MEAN CORPUSCULAR HGB CONC 32.5 g/dL (32.0-36.0); MEAN CORPUSCULAR VOLUME 89.6 fL (81.0-99.0); MONOCYTES # (AUTO) 0.6 10^3/uL (0.0-1.0); MONOCYTES % (AUTO) 8.6 %; NEUTROPHILS # (AUTO) 4.5 10^3/uL (1.5-6.6); NEUTROPHILS % (AUTO) 68.1 %; PLT - PLATELET COUNT 258 10^3/uL (130-450); RED BLOOD COUNT 4.22 10^6/uL (4.20-5.40); RED CELL DISTRIBUTION WIDTH 13.6 % (12.0-15.0); WHITE BLOOD COUNT 6.6 x10^3/uL (4.8-10.8)
[2020-09-11] MEDS ORDERED: PROCAINAMIDE 1,000 MG in SODIUM CHLORIDE 0.9% 240 ML IV STA (16:07)
[2020-09-11 16:09] LABS: ALBUMIN 3.8 g/dL (3.2-5.5); ALBUMIN/GLOBULIN RATIO 1.2 (1.0-2.2); BILIRUBIN,TOTAL 0.6 mg/dL (0.2-1.0); CALCIUM 9.9 mg/dL (8.5-10.3); CREATININE 0.9 mg/dL (0.4-1.0); MAGNESIUM 2.1 mg/dL (1.7-2.8); TOTAL PROTEIN 7.1 g/dL (6.7-8.2)
[2020-09-11] MEDS ORDERED: ASPIRIN 325 MG TABLET PO STA (16:17)
[2020-09-11] MEDS ORDERED: diltiaZEM INJ 5 MG/ML VIAL IVP STA (16:29)
[2020-09-11] MEDS ORDERED: ETOMIDATE 40 MG/20 ML VIAL IVP STA (17:48)
[2020-09-11] MEDS ORDERED: PROMETHAZINE INJ 12.5 MG in SODIUM CHLORIDE 0.9% 50 ML IV STA (17:48)
[2020-09-11] MEDS ORDERED: ACETAMINOPHEN 325 MG TABLET PO PRN (17:56)
[2020-09-11] MEDS ORDERED: SODIUM CHLORIDE FLUSH 0.9% 10 ML SYRINGE IVP PRN (17:56)
[2020-09-11] MEDS ORDERED: ONDANSETRON 4 MG/2 ML VIAL IVP PRN (17:56)
[2020-09-11] MEDS ORDERED: PROMETHAZINE 25 MG/1 ML VIAL ONE (18:05)
[2020-09-11] MEDS ORDERED: SODIUM CHLORIDE 0.9% 1,000 ML IV STA (18:24)
[2020-09-11 20:05] LABS: C. PNEUMONIAE- RESP PCR PANEL NOT DETECTED
--- NOTE | 2020-09-11 20:19 | HISTORY & PHYSICAL EXAMINATION ---
Chief Complaint - Chief Complaint Chief Complaint: palpitations History of Present Illness - Admitted From Admitted From:: Home - History Obtained From Records Reviewed: [facility] History obtained from: patient and daytime hospitalist, Dr. 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 She says that she felt she was healthy until July of last year. She began having fevers, cough, was diagnosed as bronchitis. She was seen in the emergency room several times with this. She is disgusted with the fact she had to go to the emergency room because her primary care provider could not see her until October. After being seen in the emergency room she was given nebulizers, and Augmentin to go home with. She feels that the Augmentin "shut my got down". She lost her sense of taste. She had daily nausea. She used to be able to walk daily and had firm muscle mass and strong legs. She has lost 20 pounds, can barely keep food down because she has no appetite. Her muscles feel so weak. Getting up and getting around is now an effort for her. Just standing up to walk a few feet into turn the corner causes her to be on balance and almost to fall. She has switched to see a provider in the [place] [facility]. She is also started to see a lubricating engineer . She is figured out that the Augmentin must have done something and she has been on dietary supplements and probiotics. She still has to take Zofran 2 or 3 times a day. Then out of nowhere, she started having palpitations while she was doing the dishes. Her chest felt a little tight with this. But she was not short of breath, diaphoretic, or having jaw/arm pain.For decades now she has had a sensation of a "popping" in her chest. But it was momentary, never severe and she never paid any mind to it. This was different. This was a sensation of fluttering with mild chest aching under leave the left breast. She came to the emergency room and was evaluated by Dr. Beniets. Temperature was 36.7, heart rate was 154, respirations were 20 and blood pressure was 135/81 with 99% O2 sat. She had an irregularly irregular fast heart rate without a murmur. Was otherwise negative on physical exam. She was alert, oriented, had no pedal edema. The EKG showed atrial fibrillation with lateral ST depression that was likely rate related. She was initially given beta-abdiaziz then Cardizem IV push, and then given Procan with the [place] protocol. She then developed a bundle branch block on EKG with the Procan drip. No other symptoms. No chest pain. In the Procan drip was stopped. The thought was that did not cardiovert her and she was about to be sedated when she spontaneously converted to sinus rhythm. EKG was done and did not have prolonged QT syndrome or left bundle branch block.Initial troponin was 50.6. Neck troponin was 46.9. She is felt to have some demand enzyme leak from her A. fib with RVR but no true NSTEMI. She is now admitted for observation for further troponins. Unfortunately it is the weekend. She will need an echocardiogram and a stress test. Those not available today or tomorrow. She will need to have those done in the outpatient setting. History - Past Medical History Cardiovascular: reports: Arrhythmia Respiratory: reports: Pneumonia Endocrine/Autoimmune: reports: HyPOthyroidism, Other (thymoma w excision) GI: reports: GERD, Other (Left upper quadrant abdominal pain October 2007. 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 pylori - October 2013.) Ortho: reports: Spine surgery - Family & Social History Family History Comment/Other: Mother had colon cancer, hypertension but in her late 90s. Dad of CHF but was a hard smoker and drinker. 3 brothers: 1 at 7 after being ped vs vehicle, 1 of mycosis fungoides as complication of antirejection drugs for bone marrow transplant as treatment for Hodgkins, 1 has HIV since 1984 but is alive and well. 1 son is healthy in [place] Living arrangement: At home Living Situation: Alone Social History Notes: She is originally from [place]. 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 She then realized, as she did her tax return, that she was donating a lot of time and money to nonprofit [employer]. So she switched careers and went to [place] and worked for a [employer] there for 20 years. She has 1 son. He lives in [place] and they are very close. Unfortunately she lost her life partner of over 30 years 2 years ago. Her partner of metastatic breast cancer to lung. They have been living on [facility] for about 30 years. She never smoked. She rarely drinks. She has no history of recreational substance abuse. - Substance History Use: Uses substance without health or social issues: NONE Abuse: Recurrent use of substance despite neg consequences: NONE Dependence: Experiences withdrawal or developed tolerances: NONE - POLST Patient has POLST: No POLST Status: DNR (While she wishes all interventions of antibiotics, BiPAP, transfusions, surgeries, if the end is more than likely and it looks like we have to resuscitate to keep her alive she does not want to be resuscitated.) Meds/Allgy - Home Medications Home Medications: Ambulatory Orders Medication Instructions Recorded Confirmed buPROPion [Wellbutrin Xl] 150 mg PO DAILY 06/12/16 09/07/20 Valacyclovir HCl [Valacyclovir] 1 tab PO DAILY 09/14/17 09/07/20 Ondansetron [Zuplenz] 4 mg PO 09/11/20 Thyroid Pill 09/11/20 09/11/20 Ubidecarenone [Co Q-10] 09/11/20 - Allergies Allergies/Adverse Reactions: Allergies Allergy/AdvReac Type Severity Reaction Status Date / Time prochlorperazine edisylate * Allergy Severe Edema Verified 09/07/20 17:37 [From Compazine] prochlorperazine maleate * Allergy Severe Edema Verified 09/07/20 17:37 [From Compazine] Sulfa (Sulfonamide Allergy Severe Nausea Verified 09/07/20 17:37 Antibiotics) amoxicillin [From Augmentin] Allergy Unknown Verified 09/11/20 15:48 clavulanic acid Allergy Unknown Verified 09/11/20 15:48 [From Augmentin] tetracycline [Tetracycline] Allergy Nausea Verified 09/07/20 17:37 narcotics AdvReac Unknown Uncoded 09/11/20 15:49 Review of Systems - Constitutional Constitutional: reports: Fatigue, Malaise, Weakness, Poor appetite, Weight loss, Other (All of this started in July with Augmentin and she is lost 20 pounds) - Eyes Eyes: denies: Pain, Irritation, Amaurosis, Blurred vision, Vision loss, Dipolpia - Ears, Nose & Throat Ears, Nose & Throat: reports: Postnasal drainage. denies: Hearing loss, Hearing aids, Tinnitus, Vertigo, Nasal pain, Nasal discharge, Dentures, Sore throat, H oarseness - Cardiovascular Cariovascular: reports: Irregular heart rate (Today), Palpitations, Chest pain, Lightheadedness (For over a month now), Exertional dyspnea (For over a month now. She loses endurance and breath since she had her bronchitis in July), Decr. exercise tolerance. denies: Edema, Syncope, Orthopnea - Respiratory Respiratory: reports: Cough (Severe in July and gradually improving. She still has a little bit of it now but nonproductive.), Sputum production (In July, that was yellow and thick but gone now), Wheezing (In July, gone now). denies: Snoring, Hemoptysis, Orthopnea, SOB at rest, SOB with exertion, Apnea, Stridor - Gastrointestinal Gastrointestinal: reports: Abdominal pain ( A few years ago, Epigastric and left upper quadrant.Unremitting. They thought she had a gist tumor on CT of the abdomen. EGD was done and negative), Nausea (Zofran 2-3 times a day), Poor appetite. denies: Abdominal distention, Constipation, Diarrhea, Change in bowel habits, Black stools, Bloody stools, Vomiting, Coffee grounds emesis, Reflux/heartburn - Genitourinary Genitourinary: denies: Dysuria, Frequency, Urgency, Hematuria, Incontinence, Flank pain - Musculoskeletal Musculoskeletal: reports: Back pain (Mild, mainly resolved since her surgeries), Joint pain (Mild, fleeting, not a problem) - Integumentary Integumentary: denies: Rash, Pruritis, Lesions, Dryness, Acne - Neurological Neurological: reports: General weakness. denies: Focal weakness, Headache, Dizziness, Numbness, Memory problems, Pre-existing deficit, Abnormal gait, Seizures, Slurred speech - Psychiatric Psychiatric: reports: Depression (Has been present all of her life. Mild. But with her of her partner 2 years ago the initial grief was horrifically spasmodic and painful. This last year that has faded to just a weight in her chest of sorrow. But that is getting better.). denies: Suicidal, Delusions, Hallucinations, Homicidal - Endocrine Endocrine: denies: Polyuria, Polydypsia, Polyphagia - Hematologic/Lymphatic Hematologic/Lymphatic: denies: Anemia, Bruising, Petechiae, Blood clots, Lymphadenopathy Prior Level of Functionality: She drives, does light housekeeping, cooks for herself, pays her own bills. Then she stopped driving in July when she got sick with her bronchitis. Her friends help her now with that. She has a casing flusher that comes every 3 to 4 weeks to clean house. She says that her brother, in [place], is adding an extension to his house. When the time comes she will move in with him when she can no longer stay here and take care of herself. Exam - Vital Signs Reviewed Vital Signs: Yes Vital Signs: Vital Signs x48h Temp Pulse Pulse Resp BP BP Pulse Ox 09/11/20 18:50 36.6 C 76 20 105/67 96 09/11/20 17:50 69 18 105/93 H 98 09/11/20 17:41 36.8 C 121 H 22 108/83 H 100 09/11/20 17:00 110 H 18 109/69 99 09/11/20 16:54 121 H 23 99/77 97 09/11/20 16:44 136 H 22 109/85 H 96 09/11/20 16:33 147 H 23 93/65 99 09/11/20 16:24 147 H 93/63 09/11/20 16:06 128 H 22 98/73 97 09/11/20 16:04 140 H 26 H 96/77 97 09/11/20 15:58 144 H 20 95/74 96 09/11/20 15:56 160 H 109/85 H 09/11/20 15:55 145 H 18 94/81 H 99 09/11/20 15:34 36.7 C 154 H 20 135/81 H 99 - Physical Exam General Appearance: positive: No acute distress, Alert, Other (Fatigued appearing, muted affect, still feeling an occasional extra heartbeat) Eyes Bilateral: positive: PERRL, EOMI ENT: positive: No signs of dehydration Neck: positive: No JVD. negative: Stiff neck Respiratory: positive: No respiratory distress. negative: Wheezes, Rales, Rhonchi Cardiovascular: positive: Regular rate & rhythm, No murmur. negative: Gallop/S4, Friction rub Peripheral Pulses: positive: 1+ Abdomen: positive: Non-tender, No organomegaly, Nml bowel sounds, No distention Skin: positive: Warm, Dry Extremities: positive: Non-tender, Full ROM, No pedal edema Neurologic/Psychiatric: positive: Oriented x3, CN's nml (2-12), Motor nml, Weakness (Mild and generalized. 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 negative: Facial droop, Slurred/abnml speech Conclusion/Plan - Problem List (1) Atrial fibrillation with RVR Conclusion/Plan: New onset atrial fibrillation. It is associated with mild increase in troponin but the troponin rise is "flat". Most likely due to enzyme leakage with RVR and not true NSTEMI or STEMI. At this time differential diagnosis of IA, PE, thyroid cannot be completely evaluated. There is no nuclear medicine on the weekend. We do not have echo or stress testing on the weekend. Plan: Observation status Third set of troponins TSH D-dimer Echo and stress test in the outpatient setting. Copy of this will be sent to Dr. Wright in [place]. (2) Hyponatremia Conclusion/Plan: Chronic. In looking at most of her visits through the emergency room dating to 2012 her sodium has been low. Isolated adrenal nodule seen on one of her CTs. She is not on an SSRI.However, her primary care provider feels that she has been chronically hyponatremic due to her use of Wellbutrin. Plan: Spot urine sodium Cortisol level (fasting) in the morning Check TSH Check CXR (3) Weight loss, non-intentional Conclusion/Plan: This is in the context of someone who had antibiotics a month ago. Seem to have reaction to the antibiotics where her sense of smell and taste were gone. She was Covid negative. But all of this really debilitated her with a 20 pound weight loss, weakness, and she feels like she needs more help. Plan: She is already changed PCPs to a new primary care provider. A copy of this discharge summary will be sent to her: Sheila Wright MD - Lab Results Lab results reviewed: Yes Fish Bones: 09/11/20 15:45 09/11/20 15:45 - Diagnostic Imaging Results Diagnostic Imaging Results: positive: Final report reviewed Core Measures - Anticipated LOS I expect patient to be DC'd or transferred within 96 hours.: Yes - DVT/VTE - Prophylaxis VTE/DVT Device ordered at admit?: Yes
[2020-09-11] MEDS: METOPROLOL TARTRATE 25 MG TABLET PO SCH (21:31)
[2020-09-12] MEDS: SODIUM CHLORIDE FLUSH 0.9% 10 ML SYRINGE IVP SCH ×2 (01:00→09:13)
[2020-09-12 05:26] LABS: BASOPHILS % (AUTO) 0.5 %; EOSINOPHILS # (AUTO) 0.3 10^3/uL (0.0-0.7); EOSINOPHILS % (AUTO) 4.5 %; HGB - HEMOGLOBIN 9.7 g/dL (12.0-16.0); LYMPHOCYTES # (AUTO) 1.4 10^3/uL (1.5-3.5); LYMPHOCYTES % (AUTO) 23.2 %; MEAN CORPUSCULAR HEMOGLOBIN 29.1 pg (27.0-31.0); MEAN PLATELET VOLUME 9.6 fL (7.9-10.8); MONOCYTES # (AUTO) 0.6 10^3/uL (0.0-1.0); MONOCYTES % (AUTO) 10.2 %; NEUTROPHILS # (AUTO) 3.7 10^3/uL (1.5-6.6); NEUTROPHILS % (AUTO) 61.3 %; PLT - PLATELET COUNT 218 10^3/uL (130-450); RED BLOOD COUNT 3.33 10^6/uL (4.20-5.40); RED CELL DISTRIBUTION WIDTH 13.8 % (12.0-15.0)
[2020-09-12 05:39] LABS: CALCIUM 8.8 mg/dL (8.5-10.3); CREATININE 0.8 mg/dL (0.4-1.0)
--- NOTE | 2020-09-12 06:05 | Discharge Plan ---
Discharge Plan Problem Reviewed?: Yes Disposition: Home, Self Care Condition: Stable Prescriptions: Aspirin EC [Ecotrin] 325 mg PO DAILY #30 tablet Metoprolol Tartrate [Lopressor] 25 mg PO BID #60 tablet Diet: Regular Activity Restrictions: Activity as Tolerated Shower Restrictions: No Driving Restrictions: No Instruction Topics: Metoprolol tablets Health Concerns: You presented to our emergency room after having palpitations while washing the dishes. In the emergency room we found you to have a fast irregularly irregular heart rate called atrial fibrillation. You received medicines to slow down the heart rate called calcium channel blockers and beta-blockers. You were started on a medication called Procan and while in the midst of Procan your EKG started to change. As such the Procan was stopped and you spontaneously converted on your own to a regular "sinus rhythm". Your heart is now beating in a regularly regular pattern of electricity. You wish to spend an overnight stay just to be sure since you live alone. Your blood test showed that you are not having a heart attack. Your thyroid is normal. Plan of Treatment: 1. You will be temporarily started on metoprolol 25 mg twice a day. Please see your primary care provider in follow-up. You may not have to take this permanently. 2. We usually add blood thinners to someone who goes in and out of atrial fibrillation. However you do not wish to be on the regular types of blood thinners and want to be only on an aspirin a day. 3. You have had an unexpected change in his health status since having bronchitis last month. The antibiotics really affected your bowel health, appetite, and you have lost weight and become weak. Other than taking probiotics, and high intensity protein shakes once a day, there are no further recommendations but please follow-up with your primary care provider for this. 4. Please see your primary care provider Dr. Sheila Wright in the next 1 to 2 weeks for follow-up for continuity of care, and for them to refer you to cardiology. You will need an echocardiogram which is an ultrasound of your heart, and a stress test. Both of these are done and evaluation of someone has had atrial fibrillation. Care Goals: To not have another episode of atrial fibrillation Assessment: Patient understands care goals and will follow through No Smoking: If you smoke, Please STOP! Call for help.
--- NOTE | 2020-09-12 06:19 | PROVIDER PROGRESS NOTE ---
Subjective - Prog Note Date Prog Note Date: 09/12/20 Prog Note Time: 06:14 - Subjective Pt reports feeling: Improved Subjective: This is a discharge note in a patient who was placed in observation for new onset A. fib. She converted to sinus rhythm in the emergency room. She remained for observation to make sure she stayed in sinus rhythm, and to make sure her troponins did not rise. Overnight there have been no arrhythmias. She has been comfortable. Current Medications - Current Medications Current Medications: Active Medications Acetaminophen (Acetaminophen 325 Mg Tablet) 650 mg PO Q4HR PRN PRN Reason: Pain 1 to 4 Metoprolol Tartrate (Metoprolol Tartrate 25 Mg Tablet) 25 mg PO BID [facility] Last Admin: 09/11/20 21:31 Dose: 25 mg Documented by: Ondansetron HCl (Ondansetron 4 Mg/2 Ml Vial) 4 mg IVP Q6HR PRN PRN Reason: Nausea / Vomiting Sodium Chloride (Sodium Chloride Flush 0.9% 10 Ml Syringe) 10 ml IVP PRN PRN PRN Reason: NEEDED PER PROVIDER ORDERS Sodium Chloride (Sodium Chloride Flush 0.9% 10 Ml Syringe) 10 ml IVP 0100,0900,1700 [facility] Last Admin: 09/12/20 01:00 Dose: Not Given Documented by: buPROPion [Wellbutrin Xl] 150 mg PO DAILY 06/12/16 Valacyclovir HCl [Valacyclovir] 1 tab PO DAILY 09/14/17 Ondansetron [Zuplenz] 4 mg PO 09/11/20 Thyroid Pill 09/11/20 Ubidecarenone [Co Q-10] 09/11/20 Objective - Vital Signs/Intake & Output Vital Signs: Vital Signs x48h Temp Pulse Resp BP Pulse Ox 09/12/20 05:00 36.8 C 71 16 111/58 L 94 09/11/20 23:21 36.8 C 65 18 97/53 L 94 Intake & Output: Intake & Output 09/09/20 09/10/20 09/11/20 09/12/20 23:59 23:59 23:59 23:59 Intake Total 1780.5 300 Output Total 650 Balance 1780.5 -350 - Objective General Appearance: positive: No acute distress, Alert, Other (Sitting up in bed eating her breakfast asking for salt) Eyes Bilateral: positive: PERRL ENT: positive: Pharynx nml Neck: positive: No JVD. negative: Stiff neck Respiratory: positive: No respiratory distress. negative: Wheezes, Rales, Rhonchi Cardiovascular: positive: Regular rate & rhythm. negative: Gallop/S4, Friction rub Abdomen: positive: Non-tender, No organomegaly, Nml bowel sounds, No distention Skin: positive: Warm, Dry Extremities: positive: Full ROM, No pedal edema Neurologic/Psychiatric: positive: Oriented x3, CN's nml (2-12), Motor nml - Lab Results Fish Bones: 09/12/20 04:55 09/12/20 04:55 Other Labs: Lab Results x24hrs 09/12/20 09/12/20 09/12/20 Range/Units 05:42 04:55 04:55 WBC (4.8-10.8) x10^3/uL RBC (4.20-5.40) 10^6/uL Hgb (12.0-16.0) g/dL Hct (37.0-47.0) % MCV (81.0-99.0) fL MCH (27.0-31.0) pg MCHC (32.0-36.0) g/dL RDW (12.0-15.0) % Plt Count (130-450) 10^3/uL MPV (7.9-10.8) fL Neut # (Auto) (1.5-6.6) 10^3/uL Lymph # (Auto) (1.5-3.5) 10^3/uL [place] # (Auto) (0.0-1.0) 10^3/uL Eos # (Auto) (0.0-0.7) 10^3/uL Baso # (Auto) (0.0-0.1) 10^3/uL Absolute Nucleated RBC x10^3/uL Nucleated RBC % /100WBC Sodium 133 L (135-145) mmol/L Potassium 3.8 (3.5-5.0) mmol/L Chloride 102 (101-111) mmol/L Carbon Dioxide 23 (21-32) mmol/L Anion Gap 8.0 (6-13) BUN 11 (6-20) mg/dL Creatinine 0.8 (0.4-1.0) mg/dL Estimated GFR (MDRD) 69 L (>89) Glucose 81 (70-100) mg/dL Calcium 8.8 (8.5-10.3) mg/dL Magnesium (1.7-2.8) mg/dL Total Bilirubin (0.2-1.0) mg/dL AST (10-42) IU/L ALT (10-60) IU/L Alkaline Phosphatase (42-121) IU/L Troponin I High Sens (2.3-14.8) ng/L Total Protein (6.7-8.2) g/dL Albumin (3.2-5.5) g/dL Globulin (2.1-4.2) g/dL Albumin/Globulin Ratio (1.0-2.2) TSH 2.83 (0.34-5.60) uIU/mL Cortisol AM Sample 14.7 ug/dL Nasal Adenovirus (PCR) Nasal B. parapertussis DNA (PCR) Nasal Coronavir 229E PCR Nasal Coronavir HKU1 PCR Nasal Coronavir NL63 PCR Nasal Coronavir OC43 PCR Nasal Enterovir/Rhinovir PCR Nasal Influenza B PCR Nasal Influenza A PCR Nasal Parainfluen 1 PCR Nasal Parainfluen 2 PCR Nasal Parainfluen 3 PCR Nasal Parainfluen 4 PCR Nasal RSV (PCR) Nasal B.pertussis DNA PCR Nasal C.pneumoniae (PCR) Aleks Human Metapneumo PCR Nasal M.pneumoniae (PCR) Nasal SARS-CoV-2 (PCR) 09/12/20 09/11/20 09/11/20 Range/Units 04:55 23:50 18:55 WBC 6.0 (4.8-10.8) x10^3/uL RBC 3.33 L (4.20-5.40) 10^6/uL Hgb 9.7 L (12.0-16.0) g/dL Hct 30.3 L (37.0-47.0) % MCV 91.0 (81.0-99.0) fL MCH 29.1 (27.0-31.0) pg MCHC 32.0 (32.0-36.0) g/dL RDW 13.8 (12.0-15.0) % Plt Count 218 (130-450) 10^3/uL MPV 9.6 (7.9-10.8) fL Neut # (Auto) 3.7 (1.5-6.6) 10^3/uL Lymph # (Auto) 1.4 L (1.5-3.5) 10^3/uL [place] # (Auto) 0.6 (0.0-1.0) 10^3/uL Eos # (Auto) 0.3 (0.0-0.7) 10^3/uL Baso # (Auto) 0.0 (0.0-0.1) 10^3/uL Absolute Nucleated RBC 0.00 x10^3/uL Nucleated RBC % 0.0 /100WBC Sodium (135-145) mmol/L Potassium (3.5-5.0) mmol/L Chloride (101-111) mmol/L Carbon Dioxide (21-32) mmol/L Anion Gap (6-13) BUN (6-20) mg/dL Creatinine (0.4-1.0) mg/dL Estimated GFR (MDRD) (>89) Glucose (70-100) mg/dL Calcium (8.5-10.3) mg/dL Magnesium (1.7-2.8) mg/dL Total Bilirubin (0.2-1.0) mg/dL AST (10-42) IU/L ALT (10-60) IU/L Alkaline Phosphatase (42-121) IU/L Troponin I High Sens 53.0 H* (2.3-14.8) ng/L Total Protein (6.7-8.2) g/dL Albumin (3.2-5.5) g/dL Globulin (2.1-4.2) g/dL Albumin/Globulin Ratio (1.0-2.2) TSH (0.34-5.60) uIU/mL Cortisol AM Sample ug/dL Nasal Adenovirus (PCR) NOT DETECTED Nasal B. parapertussis DNA (PCR) NOT DETECTED Nasal Coronavir 229E PCR NOT DETECTED Nasal Coronavir HKU1 PCR NOT DETECTED Nasal Coronavir NL63 PCR NOT DETECTED Nasal Coronavir OC43 PCR NOT DETECTED Nasal Enterovir/Rhinovir PCR NOT DETECTED Nasal Influenza B PCR NOT DETECTED Nasal Influenza A PCR NOT DETECTED Nasal Parainfluen 1 PCR NOT DETECTED Nasal Parainfluen 2 PCR NOT DETECTED Nasal Parainfluen 3 PCR NOT DETECTED Nasal Parainfluen 4 PCR NOT DETECTED Nasal RSV (PCR) NOT DETECTED Nasal B.pertussis DNA PCR NOT DETECTED Nasal C.pneumoniae (PCR) NOT DETECTED Aleks Human Metapneumo PCR NOT DETECTED Nasal M.pneumoniae (PCR) NOT DETECTED Nasal SARS-CoV-2 (PCR) NOT DETECTED 09/11/20 09/11/20 09/11/20 Range/Units 18:09 15:45 15:45 WBC (4.8-10.8) x10^3/uL RBC (4.20-5.40) 10^6/uL Hgb (12.0-16.0) g/dL Hct (37.0-47.0) % MCV (81.0-99.0) fL MCH (27.0-31.0) pg MCHC (32.0-36.0) g/dL RDW (12.0-15.0) % Plt Count (130-450) 10^3/uL MPV (7.9-10.8) fL Neut # (Auto) (1.5-6.6) 10^3/uL Lymph # (Auto) (1.5-3.5) 10^3/uL [place] # (Auto) (0.0-1.0) 10^3/uL Eos # (Auto) (0.0-0.7) 10^3/uL Baso # (Auto) (0.0-0.1) 10^3/uL Absolute Nucleated RBC x10^3/uL Nucleated RBC % /100WBC Sodium 132 L (135-145) mmol/L Potassium 3.5 (3.5-5.0) mmol/L Chloride 96 L (101-111) mmol/L Carbon Dioxide 25 (21-32) mmol/L Anion Gap 11.0 (6-13) BUN 12 (6-20) mg/dL Creatinine 0.9 (0.4-1.0) mg/dL Estimated GFR (MDRD) 61 L (>89) Glucose 119 H (70-100) mg/dL Calcium 9.9 (8.5-10.3) mg/dL Magnesium 2.1 (1.7-2.8) mg/dL Total Bilirubin 0.6 (0.2-1.0) mg/dL AST 39 (10-42) IU/L ALT 33 (10-60) IU/L Alkaline Phosphatase 55 (42-121) IU/L Troponin I High Sens 46.9 H* 50.6 H* (2.3-14.8) ng/L Total Protein 7.1 (6.7-8.2) g/dL Albumin 3.8 (3.2-5.5) g/dL Globulin 3.3 (2.1-4.2) g/dL Albumin/Globulin Ratio 1.2 (1.0-2.2) TSH (0.34-5.60) uIU/mL Cortisol AM Sample ug/dL Nasal Adenovirus (PCR) Nasal B. parapertussis DNA (PCR) Nasal Coronavir 229E PCR Nasal Coronavir HKU1 PCR Nasal Coronavir NL63 PCR Nasal Coronavir OC43 PCR Nasal Enterovir/Rhinovir PCR Nasal Influenza B PCR Nasal Influenza A PCR Nasal Parainfluen 1 PCR Nasal Parainfluen 2 PCR Nasal Parainfluen 3 PCR Nasal Parainfluen 4 PCR Nasal RSV (PCR) Nasal B.pertussis DNA PCR Nasal C.pneumoniae (PCR) Aleks Human Metapneumo PCR Nasal M.pneumoniae (PCR) Nasal SARS-CoV-2 (PCR) 09/11/20 Range/Units 15:45 WBC 6.6 (4.8-10.8) x10^3/uL RBC 4.22 (4.20-5.40) 10^6/uL Hgb 12.3 (12.0-16.0) g/dL Hct 37.8 (37.0-47.0) % MCV 89.6 (81.0-99.0) fL MCH 29.1 (27.0-31.0) pg MCHC 32.5 (32.0-36.0) g/dL RDW 13.6 (12.0-15.0) % Plt Count 258 (130-450) 10^3/uL MPV 9.0 (7.9-10.8) fL Neut # (Auto) 4.5 (1.5-6.6) 10^3/uL Lymph # (Auto) 1.3 L (1.5-3.5) 10^3/uL [place] # (Auto) 0.6 (0.0-1.0) 10^3/uL Eos # (Auto) 0.2 (0.0-0.7) 10^3/uL Baso # (Auto) 0.0 (0.0-0.1) 10^3/uL Absolute Nucleated RBC 0.00 x10^3/uL Nucleated RBC % 0.0 /100WBC Sodium (135-145) mmol/L Potassium (3.5-5.0) mmol/L Chloride (101-111) mmol/L Carbon Dioxide (21-32) mmol/L Anion Gap (6-13) BUN (6-20) mg/dL Creatinine (0.4-1.0) mg/dL Estimated GFR (MDRD) (>89) Glucose (70-100) mg/dL Calcium (8.5-10.3) mg/dL Magnesium (1.7-2.8) mg/dL Total Bilirubin (0.2-1.0) mg/dL AST (10-42) IU/L ALT (10-60) IU/L Alkaline Phosphatase (42-121) IU/L Troponin I High Sens (2.3-14.8) ng/L Total Protein (6.7-8.2) g/dL Albumin (3.2-5.5) g/dL Globulin (2.1-4.2) g/dL Albumin/Globulin Ratio (1.0-2.2) TSH (0.34-5.60) uIU/mL Cortisol AM Sample ug/dL Nasal Adenovirus (PCR) Nasal B. parapertussis DNA (PCR) Nasal Coronavir 229E PCR Nasal Coronavir HKU1 PCR Nasal Coronavir NL63 PCR Nasal Coronavir OC43 PCR Nasal Enterovir/Rhinovir PCR Nasal Influenza B PCR Nasal Influenza A PCR Nasal Parainfluen 1 PCR Nasal Parainfluen 2 PCR Nasal Parainfluen 3 PCR Nasal Parainfluen 4 PCR Nasal RSV (PCR) Nasal B.pertussis DNA PCR Nasal C.pneumoniae (PCR) Aleks Human Metapneumo PCR Nasal M.pneumoniae (PCR) Nasal SARS-CoV-2 (PCR) ABX Reporting Has patient been on IV antibiotics over the past 48 hours?: No Assessment/Plan - Problem List (1) Atrial fibrillation with RVR Impression: New onset atrial fibrillation. It is associated with mild increase in troponin but the troponin rise is "flat". Most likely due to enzyme leakage with RVR and not true NSTEMI or STEMI. There is no nuclear medicine on the weekend. We do not have echo or stress testing on the weekend. Overnight she has had no arrhythmias. She is remained in sinus rhythm. Troponins have remained relatively flat. Levels were 50.6, 46.9, 53.0. She is not amenable to starting an anticoagulant other than the baby aspirin. As such she will be sent home on enteric-coated aspirin 325 mg a day. TSH is 2.83. D-dimer was not done. She will need an echocardiogram and stress test in the outpatient setting. Those not available at our institution Saturdays and Sundays. I have asked her to follow-up with her primary care provider, Dr. Sheila Wright in [place] to get those ordered. (2) Chronic Hyponatremia Conclusion/Plan: In looking at most of her visits through the emergency room dating to 2012 her sodium has been low. Isolated adrenal nodule seen on one of her CTs. She is not on an SSRI.However, her primary care provider feels that she has been chronically hyponatremic due to her use of Wellbutrin. Spot urine sodium was uncollected during her stay since she did not produce urine. Cortisol level was drawn and results are Normal at 14.7, fasting a.m. TSH is normal at 2.83. (3) Weight loss, non-intentional Conclusion/Plan: This is in the context of someone who had antibiotics a month ago. Seem to have reaction to the antibiotics where her sense of smell and taste were gone. She was Covid negative. But all of this really debilitated her with a 20 pound weight loss, weakness, and she feels like she needs more help. She is already changed PCPs to a new primary care provider. A copy of this discharge summary will be sent to her: Sheila Wright MD
[2020-09-12 08:29] VITALS: BP 113/59
[2020-09-12] MEDS: METOPROLOL TARTRATE 25 MG TABLET PO SCH (09:13)
== END 2020-09-12 09:55 | disposition home or self-care (01) ==
LOC: ED 15:31 → MS2 17:56
PROVIDERS: ADMIT Internal Medicine; ATTEND Internal Medicine
DX: I48.91 Unspecified atrial fibrillation (principal); R77.8 Other specified abnormalities of plasma proteins; I45.4 Nonspecific intraventricular block; E87.1 Hypo-osmolality and hyponatremia; T46.2X5A Adverse effect of other antidysrhythmic drugs, initial encounter; Y92.230 Patient room in hospital as the place of occurrence of the external cause; K21.9 Gastro-esophageal reflux disease without esophagitis; E03.9 Hypothyroidism, unspecified; F32.9 Major depressive disorder, single episode, unspecified; M48.00 Spinal stenosis, site unspecified; B00.9 Herpesviral infection, unspecified; R63.4 Abnormal weight loss; Z68.23 Body mass index [BMI] 23.0-23.9, adult; Z20.822 Contact with and (suspected) exposure to COVID-19; M19.90 Unspecified osteoarthritis, unspecified site; Z98.890 Other specified postprocedural states; Z87.19 Personal history of other diseases of the digestive system; Z66 Do not resuscitate; Z79.899 Other long term (current) drug therapy
CPT/HCPCS: 36415; 80048; 80053; 82533; 83735; 84443; 84484; 85025; 87631; 93005; 96365; 96366; 96368; 96375; 99285; A9270; G0378; J2690; J7040; 0202U

== ENCOUNTER 2020-10-07 13:06 | Outpatient (CLI) | payer MEDICARE, OTHER ==
[2020-10-07 13:29] LABS: BASOPHILS % (AUTO) 0.4 %; EOSINOPHILS # (AUTO) 0.3 10^3/uL (0.0-0.7); EOSINOPHILS % (AUTO) 3.7 %; HGB - HEMOGLOBIN 11.3 g/dL (12.0-16.0); LYMPHOCYTES # (AUTO) 1.4 10^3/uL (1.5-3.5); LYMPHOCYTES % (AUTO) 18.2 %; MEAN CORPUSCULAR HEMOGLOBIN 29.1 pg (27.0-31.0); MEAN CORPUSCULAR HGB CONC 31.5 g/dL (32.0-36.0); MEAN CORPUSCULAR VOLUME 92.5 fL (81.0-99.0); MONOCYTES # (AUTO) 0.5 10^3/uL (0.0-1.0); NEUTROPHILS # (AUTO) 5.5 10^3/uL (1.5-6.6); NEUTROPHILS % (AUTO) 70.4 %; PLT - PLATELET COUNT 292 10^3/uL (130-450); RED BLOOD COUNT 3.88 10^6/uL (4.20-5.40); RED CELL DISTRIBUTION WIDTH 14.3 % (12.0-15.0); WHITE BLOOD COUNT 7.8 x10^3/uL (4.8-10.8)
[2020-10-07 13:40] LABS: CREATININE 0.7 mg/dL (0.4-1.0)
== END 2020-10-07 13:07 | disposition home or self-care (01) ==
LOC: LAB 13:06
PROVIDERS: ATTEND Family Medicine
DX: D64.9 Anemia, unspecified (principal); E87.1 Hypo-osmolality and hyponatremia
CPT/HCPCS: 36415; 80048; 85025

== ENCOUNTER 2020-11-08 14:26 | Outpatient (CLI) | payer MEDICARE, OTHER ==
[2020-11-08 14:46] LABS: BASOPHILS % (AUTO) 0.5 %; EOSINOPHILS # (AUTO) 0.3 10^3/uL (0.0-0.7); EOSINOPHILS % (AUTO) 3.5 %; HCT - HEMATOCRIT 37.2 % (37.0-47.0); HGB - HEMOGLOBIN 11.9 g/dL (12.0-16.0); LYMPHOCYTES # (AUTO) 2.1 10^3/uL (1.5-3.5); LYMPHOCYTES % (AUTO) 24.6 %; MEAN CORPUSCULAR HEMOGLOBIN 29.6 pg (27.0-31.0); MEAN CORPUSCULAR VOLUME 92.5 fL (81.0-99.0); MEAN PLATELET VOLUME 9.4 fL (7.9-10.8); MONOCYTES # (AUTO) 0.7 10^3/uL (0.0-1.0); MONOCYTES % (AUTO) 8.2 %; NEUTROPHILS # (AUTO) 5.4 10^3/uL (1.5-6.6); PLT - PLATELET COUNT 290 10^3/uL (130-450); RED BLOOD COUNT 4.02 10^6/uL (4.20-5.40); RED CELL DISTRIBUTION WIDTH 13.7 % (12.0-15.0); WHITE BLOOD COUNT 8.6 x10^3/uL (4.8-10.8)
[2020-11-08 15:05] LABS: CALCIUM 10.4 mg/dL (8.5-10.3); CREATININE 0.9 mg/dL (0.4-1.0); POTASSIUM 3.7 mmol/L (3.5-5.0)
== END 2020-11-08 14:27 | disposition home or self-care (01) ==
LOC: LAB 14:26
PROVIDERS: ATTEND Family Medicine
DX: D64.9 Anemia, unspecified (principal); E87.1 Hypo-osmolality and hyponatremia
CPT/HCPCS: 36415; 80048; 85025

== ENCOUNTER 2020-11-17 08:34 | Outpatient (CLI) | payer MEDICARE, OTHER ==
--- NOTE | 2020-11-17 11:38 | CARDIAC PROCEDURE NOTE ---
DATE OF SERVICE: 11/17/2020 Physician: Pham Moses MD, [facility] INDICATION: Paroxysmal atrial fibrillation, CAD. CARDIAC RISK FACTORS: Postmenopausal status, hypertension. PROCEDURE: After signing informed consent, the patient underwent a Savage- protocol treadmill stress test with Echo imaging pre- and post-exercise. RESTING HEART RATE: 67. PEAK HEART RATE: 120 (90% predicted maximum heart rate for age). RESTING BLOOD PRESSURE: 132/75. PEAK BLOOD PRESSURE: 159/78. The patient exercised for 5 minutes and 36 seconds on a Savage-protocol treadmill stress test. She achieved a peak heart rate of 129 (90% PMHR) and 7.05 METs. The patient developed no chest pain, had mild to moderate shortness of breath with exercise and rated her perceived exertion at 15/20 at peak on the Tim scale. Oxygen saturation was 92%-98% on room air throughout the test. RESTING EKG: Normal sinus rhythm, borderline voltage for LVH, otherwise within normal limits. EKG AT PEAK: Nonspecific scooping ST segments of 0.5 mm in leads V5 and V6 develop. SUMMARY: 1. Essentially normal resting EKG. 2. Fair to good exercise tolerance. 3. Nonspecific EKG changes develop with treadmill exercise. 4. Echo images were reported separately and showed: Normal LV wall motion at rest, LVEF 60%, and no regional wall motion abnormalities develop with exercise. IMPRESSION: Normal stress test. cc: MD Christine Avery MD Laura Sobieck, DO (PCP) TD: 11/17/2020 11:26 [facility]
== END 2020-11-17 08:35 | disposition home or self-care (01) ==
LOC: DI 08:34
PROVIDERS: ATTEND Specialist
DX: I48.0 Paroxysmal atrial fibrillation (principal); I10 Essential (primary) hypertension; Z78.0 Asymptomatic menopausal state
CPT/HCPCS: 93350

== ENCOUNTER 2022-05-18 08:58 | Outpatient (CLI) | payer MEDICARE, OTHER ==
--- NOTE | 2022-05-19 11:30 | Mammography Report ---
BILATERAL DIGITAL SCREENING MAMMOGRAM 3D/2D: 05/18/2022 CLINICAL: Routine screening. Comparison is made to exams dated: 01/06/2019 mammogram, 01/03/2018 mammogram, and 01/02/2017 mammogram - [facility]. There are scattered areas of fibroglandular density in both breasts (category b / 25%-50% glandular t issue). No significant masses, calcifications, or other findings are seen in either breast. There has been no significant interval change. IMPRESSION: NEGATIVE There is no mammographic evidence of malignancy. A 1 year screening mammogram is recommended. Based on the Tyrer Cuzick model (a risk assessment model) the patients lifetime risk is 1.7% and her 10 year risk is 0.0%. According to the ACR, ACS, and NCCN guidelines, an annual breast MRI exam linda g with mammogram is recommended if the patients lifetime risk is 20% or greater. This exam was interpreted at Station ID: [id number]. NOTE: For mammograms, a report in lay terms will be sent to the patient. Approximately 15% of breast malignancies will not be visualized mammographically. In the management of a palpable breast mass, a negative mammogram must not discourage biopsy of a clinically suspicious lesion. Electronically Signed By: Joan linares/hossein:05/18/2022 14:26:36 ACR BI-RADS Category 1: Negative [id number] PARENCHYMAL PATTERN: (A) - The breast(s) demonstrate(s) scattered fibroglandular densities. BI-RADS CATEGORY: (1) - 1 RECOMMENDATION: (ANNUAL) - Recommend routine annual screening mammography. [id number] 1 year screening LATERALITY: (B)
== END 2022-05-18 08:59 | disposition home or self-care (01) ==
LOC: DI 08:58
PROVIDERS: ATTEND Family Medicine
DX: Z12.31 Encounter for screening mammogram for malignant neoplasm of breast (principal)

== ENCOUNTER 2022-12-01 20:56 | Emergency (ER) | payer MEDICARE, OTHER ==
--- NOTE | 2022-12-01 21:10 | ED Physician Documentation ---
PD HPI CHEST PAIN - Stated complaint Stated Complaint: CHEST PX - Chief complaint Chief Complaint: Cardiac - History obtained from History obtained from: Patient - Additional information Additional information: Patient is an 82-year-old female with a history of paroxysmal atrial fibrillation presenting for evaluation of feeling heart palpitations and chest pain at this evening. She was just discharged this afternoon from the [facility] after right shoulder surgery. Patient reports feeling her heart pounding for the past few hours and approximately 30 minutes prior to arrival she had a 20-minute episode where she felt a dull ache in the middle of her chest. She denies associated shortness of breath. She denies radiation to any discomfort. Nothing made her symptoms better or worse. She has been ambulating since she arrived here and reports feeling back to her usual self and denies feeling palpitations, dizziness, shortness of air or chest pain here.Her pain from her surgery has been well controlled. She is currently not on any blood thinners.Denies recent vomiting or diarrhea. She had total shoulder arthroplasty on the right on November 29. Records from care everywhere were reviewed.Her last labs were from yesterday demonstrating a hemoglobin of 11.1, WBC 10.37,Sodium 132. Review of Systems Constitutional: denies: Fever Cardiac: reports: Chest pain / pressure, Palpitations Respiratory: denies: Dyspnea, Cough GI: denies: Abdominal Pain, Vomiting Neurologic: denies: Syncope PD PAST MEDICAL HISTORY - Past Medical History Cardiovascular: Arrhythmia Respiratory: Pneumonia Endocrine/Autoimmune: HyPOthyroidism, Other GI: GERD, Other [employer]OR: Other (G1, P1) : Other HEENT: None Psych: Depression Musculoskeletal: Osteoarthritis, Chronic back pain, Other Derm: Eczema - Past Surgical History Past Surgical History: Yes General: Colonoscopy, EGD Ortho: Spine surgery - Present Medications Home Medications: Ambulatory Orders Medication Instructions Recorded Confirmed buPROPion [Wellbutrin Xl] 150 mg PO DAILY 06/12/16 09/07/20 Valacyclovir HCl [Valacyclovir] 1 tab PO DAILY 09/14/17 09/07/20 Ondansetron [Zuplenz] 4 mg PO 09/11/20 Thyroid Pill 09/11/20 09/11/20 Ubidecarenone [Co Q-10] 09/11/20 Aspirin EC [Ecotrin] 325 mg PO DAILY #30 tablet 09/12/20 Metoprolol Tartrate [Lopressor] 25 mg PO BID #60 tablet 09/12/20 - Allergies Allergies/Adverse Reactions: Allergies Allergy/AdvReac Type Severity Reaction Status Date / Time prochlorperazine edisylate * Allergy Severe Edema Verified 12/01/22 21:00 [From Compazine] prochlorperazine maleate * Allergy Severe Edema Verified 12/01/22 21:00 [From Compazine] Sulfa (Sulfonamide Allergy Severe Nausea Verified 12/01/22 21:00 Antibiotics) amoxicillin [From Augmentin] Allergy Unknown Verified 12/01/22 21:00 clavulanic acid Allergy Unknown Verified 12/01/22 21:00 [From Augmentin] tetracycline [Tetracycline] Allergy Nausea Verified 12/01/22 21:00 narcotics AdvReac Unknown Uncoded 12/01/22 21:00 - Social History Does the pt smoke?: No Smoking Status: Never smoker Does the pt drink ETOH?: Yes Does the pt have substance abuse?: No - Immunizations Immunizations are current?: Yes - POLST Patient has POLST: No POLST Status: DNR PD ED PE NORMAL - General General: Alert and oriented X 3, No acute distress, Well developed/nourished - HEENT HEENT: Atraumatic - Neck Neck: Supple, no meningeal sign - Cardiac Cardiac: RRR, No murmur, Strong equal pulses - Respiratory Respiratory: No respiratory distress, Clear bilaterally - Abdomen Abdomen: Soft, Non tender - Extremities Extremities: No edema, No calf tenderness / cord, Other (Right upper extremity in sling, dressing appears clean and dry) - Neuro Neuro: Normal speech, Other (Normal gait) Results - Vitals Vitals: Vital Signs - 24 hr 12/01/22 12/01/22 12/02/22 21:00 23:03 00:30 Temperature 36.5 C Heart Rate 100 89 95 Respiratory 16 16 18 Rate Blood Pressure 111/54 L 101/66 103/68 O2 Saturation 95 93 95 Oxygen O2 Source Room air - EKG (time done) 2110 EKG releavant findings:: EKG personally interpreted by author of this note. Relevant findings are: Rate 100, sinus tachycardia, no STEMI, QTc 454 Rate: Rate (enter#) (100) Rhythm: Sinus tachycardia Intervals: No: Prolonged QT Ischemia: No: ST elevation c/w ischemia - Labs Labs: Laboratory Tests 12/01/22 12/01/22 12/01/22 21:35 21:35 21:35 WBC 7.4 RBC 3.61 L Hgb 10.7 L Hct 33.1 L MCV 91.7 MCH 29.6 MCHC 32.3 RDW 12.9 Plt Count 229 MPV 9.7 Neut # (Auto) 5.2 Lymph # (Auto) 1.3 L [place] # (Auto) 0.9 Eos # (Auto) 0.1 Baso # (Auto) 0.0 Absolute Nucleated RBC 0.00 Nucleated RBC % 0.0 D-Dimer Sodium 133 L Potassium 4.3 Chloride 97 L Carbon Dioxide 29 Anion Gap 7.0 BUN 14 Creatinine 1.2 H Estimated GFR (MDRD) 43 L Glucose 124 H Calcium 9.2 Magnesium 1.8 Total Bilirubin 0.3 AST 25 ALT 18 Alkaline Phosphatase 56 Troponin I High Sens 13.2 Total Protein 6.7 Albumin 3.2 Globulin 3.5 Albumin/Globulin Ratio 0.9 L 12/01/22 12/01/22 22:00 23:49 WBC RBC Hgb Hct MCV MCH MCHC RDW Plt Count MPV Neut # (Auto) Lymph # (Auto) [place] # (Auto) Eos # (Auto) Baso # (Auto) Absolute Nucleated RBC Nucleated RBC % D-Dimer 313.3 H Sodium Potassium Chloride Carbon Dioxide Anion Gap BUN Creatinine Estimated GFR (MDRD) Glucose Calcium Magnesium Total Bilirubin AST ALT Alkaline Phosphatase Troponin I High Sens 12.8 Total Protein Albumin Globulin Albumin/Globulin Ratio PD Medical Decision Making - ED course Complexity details: reviewed results, re-evaluated patient, d/w patient ED course: 2244 - Patient resting comfortably with partner at bedside. No chest pain or other symptoms at this time. Patient is an 82-year-old female who was just discharged today after right shoulder surgery presenting for evaluation of palpitations and chest pain. She has a history of A-fib. Her EKG is reviewed and demonstrates a normal sinus rhythm. Her vital signs appear stable. CBC, chemistry, troponin and D-dimer were obtained. I sensitive troponin is negative. D-dimer is negative when accounted for age adjustment (405 g/L Age-adjusted D-dimer cutoff, DDU). CBC and chemistries were also reviewed and without significant findings at this time. Chest x-ray which I also reviewed is negative for consolidation, effusion. Patient has been symptom-free here including while ambulating. Her vital signs have remained stable. A second troponin was also obtained and is negative. I feel her symptoms are very unlikely to suggest ACS and also do not suggest unstable angina. Patient again has not had symptoms since being here and feels comfortable with plan for discharge with close follow-up. She is advised on concerning symptoms to return for. Departure - Departure Disposition: Home, Self Care Clinical Impression: Chest pain Condition: Stable Instructions: ED Chest Pain Atypical Unkn Cause Comments: The cause of the episode of chest pain you had tonight is unclear. Your testing in regards to your heart looks reassuring at this time. However I would recommend close follow-up with your primary care doctor As you may still need further testing to evaluate your heart. If at anytime you develop any new or worsening symptoms please consider return to the emergency department. Discharge Date/Time: 12/02/22 00:30
[2022-12-01] MEDS ORDERED: SODIUM CHLORIDE 0.9% 500 ML IV STA (21:23)
[2022-12-01 21:41] LABS: BASOPHILS % (AUTO) 0.4 %; EOSINOPHILS # (AUTO) 0.1 10^3/uL (0.0-0.7); EOSINOPHILS % (AUTO) 0.7 %; HCT - HEMATOCRIT 33.1 % (37.0-47.0); HGB - HEMOGLOBIN 10.7 g/dL (12.0-16.0); LYMPHOCYTES # (AUTO) 1.3 10^3/uL (1.5-3.5); LYMPHOCYTES % (AUTO) 17.2 %; MEAN CORPUSCULAR HEMOGLOBIN 29.6 pg (27.0-31.0); MEAN CORPUSCULAR HGB CONC 32.3 g/dL (32.0-36.0); MEAN CORPUSCULAR VOLUME 91.7 fL (81.0-99.0); MEAN PLATELET VOLUME 9.7 fL (7.9-10.8); MONOCYTES # (AUTO) 0.9 10^3/uL (0.0-1.0); MONOCYTES % (AUTO) 11.5 %; NEUTROPHILS # (AUTO) 5.2 10^3/uL (1.5-6.6); NEUTROPHILS % (AUTO) 69.8 %; PLT - PLATELET COUNT 229 10^3/uL (130-450); RED BLOOD COUNT 3.61 10^6/uL (4.20-5.40); RED CELL DISTRIBUTION WIDTH 12.9 % (12.0-15.0); WHITE BLOOD COUNT 7.4 x10^3/uL (4.8-10.8)
[2022-12-01 21:56] LABS: ALBUMIN 3.2 g/dL (3.2-5.5); ALBUMIN/GLOBULIN RATIO 0.9 (1.0-2.2); BILIRUBIN,TOTAL 0.3 mg/dL (0.2-1.0); CALCIUM 9.2 mg/dL (8.5-10.3); CREATININE 1.2 mg/dL (0.4-1.0); MAGNESIUM 1.8 mg/dL (1.7-2.8); POTASSIUM 4.3 mmol/L (3.5-5.0); TOTAL PROTEIN 6.7 g/dL (6.7-8.2)
--- NOTE | 2022-12-01 22:04 | XRAY Report ---
PROCEDURE: Chest 1 View X-Ray INDICATIONS: CP TECHNIQUE: One view of the chest was acquired. COMPARISON: CXR 08/15/2020. FINDINGS: Surgical changes and devices: Right shoulder reverse arthroplasty. Lungs and pleura: No pleural effusions or pneumothorax. Minimal bibasilar atelectasis. No consolidat ion.. Mediastinum: Mediastinal contours appear normal. Heart size is normal. Bones and chest wall: No suspicious bony lesions. Overlying soft tissues appear unremarkable. IMPRESSION: Suspect minimal bibasilar atelectasis. Reviewed by: Margarito Baeza MD on 12/01/2022 10:03 PM PDT Approved by: Margarito Baeza MD on 12/01/2022 10:03 PM PDT Station ID: [id number]
[2022-12-02 00:30] VITALS: BP 103/68
== END 2022-12-02 00:30 | disposition home or self-care (01) ==
LOC: ED 20:56
DX: R07.9 Chest pain, unspecified (principal); Z66 Do not resuscitate
CPT/HCPCS: 36415; 80053; 83735; 84484; 85025; 85379; 93005; 99283; 99284

== ENCOUNTER 2023-06-01 14:28 | Emergency (ER) | payer MEDICARE, OTHER ==
--- NOTE | 2023-06-01 14:50 | ED Physician Documentation ---
PD HPI URI - Stated complaint Stated Complaint: COUGH,SOA - Chief complaint Chief Complaint: Resp - History obtained from History obtained from: Patient - History of Present Illness Timing - onset: How many weeks ago (1) Timing duration: Weeks (1) Timing details: Abrupt onset, Still present (onset cough, wheezing, congestion a week ago while on vacation in [facility]. IMproved moderately and returned 2 days ago. Having increased cough with now green/yellow sputum. trouble sleeping due to cough.) Associated symptoms: Chills, Nasal congestion, Productive cough. No: Fever, Chest pain, NVD Contributing factors: Travel. No: Immunocompromised, COPD / asthma Similar symptoms before: Has not had sx before Review of Systems Constitutional: reports: Chills, Myalgias. denies: Fever Cardiac: denies: Chest pain / pressure, Palpitations Respiratory: reports: Dyspnea, Cough, Wheezing. 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, P1) : Other HEENT: None Psych: Depression Musculoskeletal: Osteoarthritis, Chronic back pain, Other Derm: Eczema - Past Surgical History Past Surgical History: Yes General: Colonoscopy, EGD Ortho: Spine surgery - Present Medications Home Medications: Ambulatory Orders Medication Instructions Recorded Confirmed Valacyclovir HCl [Valacyclovir] 1 tab PO DAILY 09/14/17 06/01/23 Thyroid Pill 09/11/20 09/11/20 Aspirin EC [Ecotrin] 325 mg PO DAILY #30 tablet 09/12/20 06/01/23 Metoprolol Tartrate [Lopressor] 25 mg PO BID #60 tablet 09/12/20 06/01/23 Albuterol Sulf [Ventolin Hfa 2 puffs INH QID #1 each 06/01/23 Inhaler] cefUROXime axetiL [Ceftin] 250 mg PO BID 5 Days #10 tablet 06/01/23 dexAMETHasone [Decadron] 4 mg PO DAILY #5 tablet 06/01/23 - Allergies Allergies/Adverse Reactions: Allergies Allergy/AdvReac Type Severity Reaction Status Date / Time prochlorperazine edisylate * Allergy Severe Edema Verified 06/01/23 15:18 [From Compazine] prochlorperazine maleate * Allergy Severe Edema Verified 06/01/23 15:18 [From Compazine] Sulfa (Sulfonamide Allergy Severe Nausea Verified 06/01/23 15:18 Antibiotics) amoxicillin [From Augmentin] Allergy Unknown Verified 06/01/23 15:18 clavulanic acid Allergy Unknown Verified 06/01/23 15:18 [From Augmentin] tetracycline [Tetracycline] Allergy Nausea Verified 06/01/23 15:18 narcotics AdvReac Unknown Uncoded 06/01/23 15:18 - Social History Does the pt smoke?: No Smoking Status: Never smoker Does the pt drink ETOH?: Yes Does the pt have substance abuse?: No - Immunizations Immunizations are current?: Yes - POLST Patient has POLST: No POLST Status: DNR PD ED PE NORMAL - Vitals Vital signs reviewed: Yes - General General: Alert and oriented X 3, No acute distress, Well developed/nourished - HEENT HEENT: Atraumatic, Ears normal, Pharynx benign - Neck Neck: Supple, no meningeal sign, No adenopathy - Cardiac Cardiac: RRR, No murmur - Respiratory Respiratory: Clear bilaterally - Derm Derm: Normal color, Warm and dry, No rash - Extremities Extremities: No edema, No calf tenderness / cord - Neuro Neuro: Alert and oriented X 3, No motor deficit, Normal speech Results - Vitals Vitals: Oxygen O2 Source Room air - Labs Labs: Laboratory Tests 06/01/23 15:32 Nasal Adenovirus (PCR) NOT DETECTED Nasal B. parapertussis DNA (PCR) NOT DETECTED Nasal Coronavir 229E PCR NOT DETECTED Nasal Coronavir HKU1 PCR NOT DETECTED Nasal Coronavir NL63 PCR NOT DETECTED Nasal Coronavir OC43 PCR NOT DETECTED Nasal Enterovir/Rhinovir PCR DETECTED A Nasal Influenza B PCR NOT DETECTED Nasal Influenza A PCR NOT DETECTED Nasal Parainfluen 1 PCR NOT DETECTED Nasal Parainfluen 2 PCR NOT DETECTED Nasal Parainfluen 3 PCR NOT DETECTED Nasal Parainfluen 4 PCR NOT DETECTED Nasal RSV (PCR) NOT DETECTED Nasal B.pertussis DNA PCR NOT DETECTED Nasal C.pneumoniae (PCR) NOT DETECTED Aleks Human Metapneumo PCR NOT DETECTED Nasal M.pneumoniae (PCR) NOT DETECTED Nasal SARS-CoV-2 (PCR) NOT DETECTED PD Medical Decision Making - ED course Complexity details: reviewed results (rhinvorus on PCR. lungs with slight exp wheezing. No coarse sounds. Has pruulent sputum developing with cough now, consider secondary bronchtiis.), considered differential, d/w patient Departure - Departure Disposition: 01 Home, Self Care Clinical Impression: Acute bronchitis due to Rhinovirus, Wheezing Condition: Stable Record reviewed to determine appropriate education?: Yes Instructions: ED URI Viral W Wheezing Follow-Up: GLEN RUIZ DO [Primary Care Provider] - Prescriptions: cefUROXime axetiL [Ceftin] 250 mg PO BID 5 Days #10 tablet dexAMETHasone [Decadron] 4 mg PO DAILY #5 tablet Albuterol Sulf [Ventolin Hfa Inhaler] 2 puffs INH QID #1 each Comments: Your viral PCR test is positive for rhinovirus/adenovirus which is a respiratory infection that likes to cause bronchial inflammation with wheezing and cough. We can improve on this with the albuterol inhaler 2 puffs 4 times a day for the next several days to week and then as needed. Also to decrease bronchial inflammation and wheezing, Decadron steroid daily for 5 days. Stay well-hydrated. Given your progression of symptoms with purulent sputum now 2, the question is whether there is a secondary bacterial infection as well. You could either go with the cefuroxime antibiotic starting today or use the above medications for a day or 2 and see if it shows improvement and start the antibiotic if needed if not improving. The above inhaler and steroid should help with the coughing and wheezing but the determination will be whether there is still purulent sputum etc. I sent your prescriptions to [facility] your preferred pharmacy. Recheck if not improving well over the next several days to week and return if worsening. Forms: PCP List Discharge Date/Time: 06/01/23 17:17
[2023-06-01] MEDS ORDERED: dexAMETHasone 4 MG TABLET PO STA (15:27)
[2023-06-01] MEDS ORDERED: ALBUTEROL 1 PUFF INH STA (15:27)
[2023-06-01 16:29] LABS: CORONAVIRUS 229E-RESP PCR NOT DETECTED; CORONAVIRUS HKU1-RESP PCR NOT DETECTED
[2023-06-01 16:30] LABS: B. PARAPERTUSSIS- RESP PCR PAN NOT DETECTED; B. PERTUSSIS- RESP PCR PANEL NOT DETECTED; C. PNEUMONIAE- RESP PCR PANEL NOT DETECTED; CORONAVIRUS NL63-RESP PCR NOT DETECTED; CORONAVIRUS OC43-RESP PCR NOT DETECTED; HUMAN METAPNEUMOVIRUS NOT DETECTED; INFLUENZA A- RESP PCR PANEL NOT DETECTED; INFLUENZA B - RESP PCR PANEL NOT DETECTED; M. PNEUMONIAE- RESP PCR PANEL NOT DETECTED; PARAINFLUENZA VIRUS 1 NOT DETECTED; PARAINFLUENZA VIRUS 2 NOT DETECTED; PARAINFLUENZA VIRUS 3 NOT DETECTED; PARAINFLUENZA VIRUS 4 NOT DETECTED; RHINOVIRUS/ENTEROVIRUS DETECTED; RSV- RESP PCR PANEL NOT DETECTED; SARS-CoV-2 -RESP PCR PANEL NOT DETECTED
[2023-06-01 17:21] VITALS: BP 146/92; O2SAT 97
== END 2023-06-01 17:17 | disposition home or self-care (01) ==
LOC: ED 14:28
DX: J20.6 Acute bronchitis due to rhinovirus (principal); Z20.822 Contact with and (suspected) exposure to COVID-19; Z66 Do not resuscitate
CPT/HCPCS: 87633; 94640; 94664; 99283; 99284; J8540

== ENCOUNTER 2023-07-26 09:38 | Outpatient (CLI) | payer MEDICARE, OTHER ==
--- NOTE | 2023-07-26 15:32 | XRAY Report ---
PROCEDURE: Knee 3 View RT INDICATIONS: RIGHT KNEE PAIN TECHNIQUE: 3 views of the knee(s) were acquired. COMPARISON: None. FINDINGS: Bones: No fractures or dislocations. No suspicious bony lesions. Soft tissues: No knee joint effusion. No suspicious soft tissue calcifications or masses. IMPRESSION: No acute bony abnormality. If there remains a high clinical concern for fracture, consider cross-sect ional imaging now. If pain persists, consider repeat x-ray in 10-14 days or cross-sectional imaging. Reviewed by: Brenda Davis MD on 07/26/2023 3:31 PM PST Approved by: Brenda Davis MD on 07/26/2023 3:31 PM PST Station ID: [id number]
== END 2023-07-26 09:39 | disposition home or self-care (01) ==
LOC: DI 09:38
PROVIDERS: ATTEND Internal Medicine
DX: M22.8X1 Other disorders of patella, right knee (principal); M25.561 Pain in right knee

== ENCOUNTER 2023-09-10 13:56 | Emergency (ER) | payer MEDICARE, OTHER ==
[2023-09-10 14:32] VITALS: O2SAT 95
--- NOTE | 2023-09-10 14:47 | ED Physician Documentation ---
History of Present Illness - Stated complaint Stated Complaint: C+ COUGHING/CONGESTION - Chief complaint Chief Complaint: General - History obtained from History obtained from: Patient - Additonal information Additional information: She developed symptomatic COVID 3 days ago and tested +2 days ago. She is here wanting paxlovid. Symptoms include fever, congestion, loss of taste. She is not short of breath. 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 : Other HEENT: None Psych: Depression Musculoskeletal: Osteoarthritis, Chronic back pain, Other Derm: Eczema - Past Surgical History Past Surgical History: Yes General: Colonoscopy, EGD Ortho: Spine surgery, Other - Present Medications Home Medications: Ambulatory Orders Medication Instructions Recorded Confirmed Valacyclovir HCl [Valacyclovir] 500 tab PO DAILY 09/14/17 09/10/23 Thyroid Pill 17 mcg ORAL DAILY 09/11/20 09/10/23 Albuterol Sulf [Ventolin Hfa 2 puffs INH QID #1 each 06/01/23 Inhaler] Aspirin [Aspirin EC] 81 mg PO DAILY 09/10/23 09/10/23 Metoprolol Succinate [Toprol Xl] 25 mg PO DAILY 09/10/23 09/10/23 T4 50 mcg ORAL DAILY 09/10/23 09/10/23 - Allergies Allergies/Adverse Reactions: Allergies Allergy/AdvReac Type Severity Reaction Status Date / Time prochlorperazine edisylate * Allergy Severe Edema Verified 09/10/23 14:18 [From Compazine] prochlorperazine maleate * Allergy Severe Edema Verified 09/10/23 14:18 [From Compazine] Sulfa (Sulfonamide Allergy Severe Nausea Verified 09/10/23 14:18 Antibiotics) amoxicillin [From Augmentin] Allergy Unknown Verified 09/10/23 14:18 clavulanic acid Allergy Unknown Verified 09/10/23 14:18 [From Augmentin] tetracycline [Tetracycline] Allergy Nausea Verified 09/10/23 14:18 narcotics AdvReac Unknown Uncoded 09/10/23 14:18 - Social History Does the pt smoke?: No Smoking Status: Never smoker Does the pt drink ETOH?: Yes Does the pt have substance abuse?: No - Immunizations Immunizations are current?: Yes - POLST Patient has POLST: No POLST Status: DNR PD ED PE NORMAL - Vitals Vital signs reviewed: Yes - General General: Alert and oriented X 3, No acute distress - HEENT HEENT: PERRL, EOMI - Neck Neck: Supple, no meningeal sign, No bony TTP - Cardiac Cardiac: RRR, No murmur - Respiratory Respiratory: No respiratory distress, Clear bilaterally - Abdomen Abdomen: Non tender - Neuro Neuro: Alert and oriented X 3, Normal speech - Psych Psych: Normal mood, Normal affect Results - Vitals Vitals: Vital Signs - 24 hr 09/10/23 09/10/23 14:12 15:45 Temperature 36.5 C Heart Rate 81 82 Respiratory 16 14 Rate Blood Pressure 130/70 102/74 O2 Saturation 95 95 Oxygen O2 Source Room air - Labs Labs: Laboratory Tests 09/10/23 14:56 Creatinine 0.8 Estimated GFR (MDRD) 69 L PD Medical Decision Making - ED course ED course: 82-year-old woman with symptomatic COVID and positive home tests here for paxlovid. Creatinine 0.8 and GFR 69 so no contraindication to paxlovid from that perspective. She is on metoprolol and advised to watch her pulse and discontinue the metoprolol while on the paxlovid if her pulse goes low. Departure - Departure Disposition: 01 Home, Self Care Clinical Impression: COVID-19 Condition: Good Record reviewed to determine appropriate education?: Yes Instructions: ED Viral Syndrome Comments: Check your pulse occasionally with your pulse oximeter while on the Paxlovid. You may need to decrease or stop your metoprolol, I would use a cutoff of 50 as a trigger to stop the metoprolol if it goes below that. Forms: PCP List Discharge Date/Time: 09/10/23 15:44
[2023-09-10 15:22] LABS: CREATININE 0.8 mg/dL (0.6-1.3)
[2023-09-10] MEDS ORDERED: NIRMATRELVIR/RITONAVIR PREPACK PO STA (15:23)
[2023-09-10 15:54] VITALS: BP 102/74
== END 2023-09-10 15:44 | disposition home or self-care (01) ==
LOC: ED 13:56
DX: Z01.84 Encounter for antibody response examination (principal); U07.1 COVID-19; Z66 Do not resuscitate
CPT/HCPCS: 36415; 82565; 99283; J3490

== ENCOUNTER 2024-03-05 04:27 | Observation (INO) | payer MEDICARE, OTHER ==
--- NOTE | 2024-03-05 04:55 | ED Physician Documentation ---
PD HPI ABD PAIN - Stated complaint Stated Complaint: VOMITING/ABD PX - Chief complaint Chief Complaint: Abd Pain - History obtained from History obtained from: Patient - Additional information Additional information: HPI from patient. Patient complains of diffuse crampy abdominal pain with nausea and vomiting, rapid onset at approximate 11 PM while getting ready for bed. When the pain is at its most severe, she is also experiencing diaphoresis. There are no exacerbating or ameliorating factors. She says she has had similar symptoms in the recent past but never this severe nor persistent. Denies fever. No past abdominal surgical history. Review of Systems Constitutional: reports: Sweats. denies: Fever Cardiac: reports: Reviewed and negative Respiratory: reports: Reviewed and negative GI: reports: Abdominal Pain, Nausea, Vomiting. 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 HEENT: None Psych: Depression Musculoskeletal: Osteoarthritis, Chronic back pain, Other Derm: Eczema - Past Surgical History Past Surgical History: Yes General: Colonoscopy, EGD Ortho: Spine surgery, Other - Present Medications Home Medications: Ambulatory Orders Medication Instructions Recorded Confirmed Valacyclovir HCl [Valacyclovir] 500 tab PO DAILY 09/14/17 09/10/23 Thyroid Pill 17 mcg ORAL DAILY 09/11/20 09/10/23 Albuterol Sulf [Ventolin Hfa 2 puffs INH QID #1 each 06/01/23 Inhaler] Aspirin [Aspirin EC] 81 mg PO DAILY 09/10/23 09/10/23 Metoprolol Succinate [Toprol Xl] 25 mg PO DAILY 09/10/23 09/10/23 T4 50 mcg ORAL DAILY 09/10/23 09/10/23 - Allergies Allergies/Adverse Reactions: Allergies Allergy/AdvReac Type Severity Reaction Status Date / Time prochlorperazine edisylate * Allergy Severe Edema Verified 03/05/24 04:39 [From Compazine] prochlorperazine maleate * Allergy Severe Edema Verified 03/05/24 04:39 [From Compazine] Sulfa (Sulfonamide Allergy Severe Nausea Verified 03/05/24 04:39 Antibiotics) amoxicillin [From Augmentin] Allergy Unknown Verified 03/05/24 04:39 clavulanic acid Allergy Unknown Verified 03/05/24 04:39 [From Augmentin] tetracycline [Tetracycline] Allergy Nausea Verified 03/05/24 04:39 narcotics AdvReac Unknown Uncoded 03/05/24 04:39 - Social History Does the pt smoke?: No Smoking Status: Never smoker Does the pt drink ETOH?: Yes Does the pt have substance abuse?: No - Immunizations Immunizations are current?: Yes - POLST Patient has POLST: No POLST Status: DNR PD ED PE NORMAL - Vitals Vital signs reviewed: Yes - General General: Alert and oriented X 3, No acute distress, Well developed/nourished - Cardiac Cardiac: RRR, No murmur - Respiratory Respiratory: No respiratory distress, Clear bilaterally - Abdomen Abdomen: Soft, Non distended, Other (TTP epigastrium, periumbilicus, and LLQ without rebound or guarding) - Back Back: No CVA TTP - Extremities Extremities: No edema - Neuro Neuro: Alert and oriented X 3 Results - Vitals Vitals: Vital Signs - 24 hr 03/05/24 03/05/24 04:39 06:28 Temperature 35.7 C L Heart Rate 58 L 64 Respiratory 14 18 Rate Blood Pressure 127/77 154/81 H O2 Saturation 98 99 Oxygen O2 Source Nasal cannula - Labs Labs: Laboratory Tests 03/05/24 03/05/24 03/05/24 04:48 05:00 05:00 WBC 7.5 RBC 4.17 L Hgb 12.3 Hct 38.1 MCV 91.4 MCH 29.5 MCHC 32.3 RDW 12.5 Plt Count 215 MPV 10.5 Neut # (Auto) 5.6 Lymph # (Auto) 1.5 [place] # (Auto) 0.4 Eos # (Auto) 0.1 Baso # (Auto) 0.0 Absolute Nucleated RBC 0.00 Nucleated RBC % 0.0 Sodium 135 Potassium 3.8 Chloride 103 Carbon Dioxide 26 Anion Gap 6.0 BUN 27 H Creatinine 1.0 Estimated GFR (MDRD) 53 L Glucose 150 H Calcium 10.3 Total Bilirubin 0.4 AST 20 ALT 17 Alkaline Phosphatase 51 Total Protein 7.1 Albumin 4.2 Globulin 2.9 Albumin/Globulin Ratio 1.4 Lipase 16 Urine Color YELLOW Urine Clarity HAZY Urine pH 5.5 Ur Specific [place] >=1.030 H Urine Protein NEGATIVE Urine Glucose (UA) NEGATIVE Urine Ketones TRACE Urine Occult Blood TRACE-LYSE Urine Nitrite NEGATIVE Urine Bilirubin NEGATIVE Urine Urobilinogen 0.2 (NORMAL) Ur Leukocyte Esterase SMALL H Urine RBC 0-5 Urine WBC 11-25 H Ur Squamous Epith Cells FEW Squamous Urine Bacteria Few Ur Microscopic Review INDICATED Urine Culture Comments INDICATED - Rads (name of study) CT A/P with IV contrast Relevant Findings:: Prelim report reviewed, See rad report PD Medical Decision Making - ED course Complexity details: reviewed results, re-evaluated patient, considered differential, d/w patient ED course: Normal CBC. Unremarkable ER abdominal panel (elevated BUN (27) with normal creatinine (1.0)). Urinalysis with 11-25 WBC/hpf. CT A/P with IV contrast interpreted by radiologist as "1. acute uncomplicated retrocecal appendicitis. 2. enterocolitis. 3. probable dependent gallstone. 4. 2 cm left adrenal nodule." 06:40: I discussed this case, including CT results, with Dr. Pena (on-call surgery for [facility]); he will be by to evaluate patient in ED. Departure - Departure Disposition: ED Transfer to [facility] Clinical Impression: Appendicitis Qualifiers: Appendicitis type: acute appendicitis Acute appendicitis type: unspecified acute appendicitis type Qualified Code(s): K35.80 - Unspecified acute appendicitis Condition: Good Forms: PCP List
[2024-03-05] MEDS: SODIUM CHLORIDE 0.9% 1,000 ML IV STA ×2 (05:15→07:48)
[2024-03-05] MEDS ORDERED: iohexoL-300 100 ML VIAL ONE (05:18)
[2024-03-05 05:21] LABS: BILIRUBIN,URINE NEGATIVE (NEGATIVE); GLUCOSE, URINE (UA) NEGATIVE (NEGATIVE); KETONES,URINE (UA) TRACE mg/dL (NEGATIVE); LEUKOCYTE ESTERASE, URINE SMALL (NEGATIVE); NITRITE,URINE NEGATIVE (NEGATIVE); OCCULT BLOOD,URINE TRACE-LYSE (NEGATIVE); PH,URINE 5.5 PH (5.0-7.5); PROTEIN,URINE NEGATIVE (NEGATIVE); UROBILINOGEN,URINE 0.2 (NORMAL) E.U./dL (NORMAL)
[2024-03-05 05:21] LABS: BASOPHILS % (AUTO) 0.3 %; EOSINOPHILS # (AUTO) 0.1 10^3/uL (0.0-0.7); EOSINOPHILS % (AUTO) 1.1 %; HCT - HEMATOCRIT 38.1 % (37.0-47.0); HGB - HEMOGLOBIN 12.3 g/dL (12.0-16.0); LYMPHOCYTES # (AUTO) 1.5 10^3/uL (1.5-3.5); LYMPHOCYTES % (AUTO) 19.5 %; MEAN CORPUSCULAR HEMOGLOBIN 29.5 pg (27.0-31.0); MEAN CORPUSCULAR HGB CONC 32.3 g/dL (32.0-36.0); MEAN CORPUSCULAR VOLUME 91.4 fL (81.0-99.0); MEAN PLATELET VOLUME 10.5 fL (7.9-10.8); MONOCYTES # (AUTO) 0.4 10^3/uL (0.0-1.0); MONOCYTES % (AUTO) 4.7 %; NEUTROPHILS # (AUTO) 5.6 10^3/uL (1.5-6.6); NEUTROPHILS % (AUTO) 74.3 %; PLT - PLATELET COUNT 215 10^3/uL (130-450); RED BLOOD COUNT 4.17 10^6/uL (4.20-5.40); RED CELL DISTRIBUTION WIDTH 12.5 % (12.0-15.0); WHITE BLOOD COUNT 7.5 x10^3/uL (4.8-10.8)
[2024-03-05 05:22] LABS: CLARITY,URINE HAZY (CLEAR)
[2024-03-05] MEDS: MORPHINE 2 MG/ML CARPUJECT IVP STA ×2 (05:22→08:17)
[2024-03-05] MEDS: ONDANSETRON 4 MG/2 ML VIAL IVP STA (05:23)
[2024-03-05 05:27] LABS: BACTERIA,URINE Few /HPF (None Seen); RBC,URINE 0-5 /HPF (0-5); SQUAMOUS EPITHELIAL CELL,UR FEW Squamous (<= Few)
[2024-03-05 05:36] LABS: ALBUMIN 4.2 g/dL (3.2-5.5); ALBUMIN/GLOBULIN RATIO 1.4 (1.0-2.2); BILIRUBIN,TOTAL 0.4 mg/dL (0.2-1.0); CALCIUM 10.3 mg/dL (8.5-10.3); POTASSIUM 3.8 mmol/L (3.5-4.5); TOTAL PROTEIN 7.1 g/dL (6.4-8.9)
[2024-03-05] MEDS: iohexoL-300 100 ML VIAL IVP ONE (06:03)
[2024-03-05] MEDS: DROPERIDOL 5 MG/2 ML VIAL IVP STA (08:01)
--- NOTE | 2024-03-05 08:08 | HISTORY & PHYSICAL EXAMINATION ---
HPI - Admitted From Admitted from: ED - History Obtained From History obtained from: Patient Exam limitations: No limitations - History of Present Illness Pain/Problem Location Description: Abdominal pain HPI Comment/Other: Yue is an 83 year old female who felt weak yesterday afternoon. After dinner she developed sharp, constant, lower abdominal pain about her umbilicus associated with nausea and vomiting. She has been anorexic. Her symptoms worsened over the evening and now her discomfort is in the lower midline and RLQ. She denies having similar symptoms recently. She denies fevers or chills. 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 - Social History Does the pt smoke?: No Smoking Status: Never smoker Does the pt drink ETOH?: Yes Does the pt have substance abuse?: No - POLST Patient has POLST: No POLST Status: DNR Meds/Allgy - Home Medications Home Medications: Ambulatory Orders Medication Instructions Recorded Confirmed Valacyclovir HCl [Valacyclovir] 500 tab PO DAILY 09/14/17 09/10/23 Thyroid Pill 17 mcg ORAL DAILY 09/11/20 09/10/23 Albuterol Sulf [Ventolin Hfa 2 puffs INH QID #1 each 06/01/23 Inhaler] Aspirin [Aspirin EC] 81 mg PO DAILY 09/10/23 09/10/23 Metoprolol Succinate [Toprol Xl] 25 mg PO DAILY 09/10/23 03/05/24 T4 50 mcg ORAL DAILY 09/10/23 09/10/23 buPROPion HCL [Bupropion HCl Sr] 1 tab PO DAILY 03/05/24 03/05/24 - Allergies Allergies/Adverse Reactions: Allergies Allergy/AdvReac Type Severity Reaction Status Date / Time prochlorperazine edisylate * Allergy Severe Edema Verified 03/05/24 04:39 [From Compazine] prochlorperazine maleate * Allergy Severe Edema Verified 03/05/24 04:39 [From Compazine] Sulfa (Sulfonamide Allergy Severe Nausea Verified 03/05/24 04:39 Antibiotics) amoxicillin [From Augmentin] Allergy Unknown Verified 03/05/24 04:39 clavulanic acid Allergy Unknown Verified 03/05/24 04:39 [From Augmentin] tetracycline [Tetracycline] Allergy Nausea Verified 03/05/24 04:39 narcotics AdvReac Unknown Uncoded 03/05/24 04:39 Review of Systems - Constitutional Constitutional: reports: Fatigue, Malaise - Gastrointestinal Gastrointestinal: reports: Abdominal pain - All Other Systems All Other Systems: reports: Reviewed and negative Exam - Vital Signs Reviewed Vital Signs: Yes Vital Signs: Vital Signs x48h Temp Pulse Resp BP Pulse Ox 03/05/24 06:28 64 18 154/81 H 99 03/05/24 04:39 96.3 F L 58 L 14 127/77 98 - Physical Exam General Appearance: positive: Mild distress Eyes Bilateral: positive: Normal inspection, PERRL, EOMI ENT: positive: ENT inspection nml, Pharynx nml Neck: positive: Nml inspection, Thyroid nml, No JVD, Trachea midline Respiratory: positive: Chest non-tender, No respiratory distress, Breath sounds nml Cardiovascular: positive: Regular rate & rhythm, No murmur Peripheral Pulses: positive: 2+ Abdomen: positive: Other (Mild RLQ tenderness to deep palpation. No guarding or rebound) Skin: positive: Color nml Extremities: positive: Non-tender, Full ROM Neurologic/Psychiatric: positive: Oriented x3 Results - Lab Results Fish Bones: 03/05/24 05:00 03/05/24 05:00 Other Lab Results: Lab Results x24hrs 03/05/24 03/05/24 03/05/24 Range/Units 05:00 05:00 04:48 WBC 7.5 (4.8-10.8) x10^3/uL RBC 4.17 L (4.20-5.40) 10^6/uL Hgb 12.3 (12.0-16.0) g/dL Hct 38.1 (37.0-47.0) % MCV 91.4 (81.0-99.0) fL MCH 29.5 (27.0-31.0) pg MCHC 32.3 (32.0-36.0) g/dL RDW 12.5 (12.0-15.0) % Plt Count 215 (130-450) 10^3/uL MPV 10.5 (7.9-10.8) fL Neut # (Auto) 5.6 (1.5-6.6) 10^3/uL Lymph # (Auto) 1.5 (1.5-3.5) 10^3/uL [place] # (Auto) 0.4 (0.0-1.0) 10^3/uL Eos # (Auto) 0.1 (0.0-0.7) 10^3/uL Baso # (Auto) 0.0 (0.0-0.1) 10^3/uL Absolute Nucleated RBC 0.00 x10^3/uL Nucleated RBC % 0.0 /100WBC Sodium 135 (135-145) mmol/L Potassium 3.8 (3.5-4.5) mmol/L Chloride 103 (101-111) mmol/L Carbon Dioxide 26 (21-32) mmol/L Anion Gap 6.0 (6-13) BUN 27 H (6-20) mg/dL Creatinine 1.0 (0.6-1.3) mg/dL Estimated GFR (MDRD) 53 L (>89) Glucose 150 H (74-104) mg/dL Calcium 10.3 (8.5-10.3) mg/dL Total Bilirubin 0.4 (0.2-1.0) mg/dL AST 20 (10-42) IU/L ALT 17 (10-60) IU/L Alkaline Phosphatase 51 (42-121) IU/L Total Protein 7.1 (6.4-8.9) g/dL Albumin 4.2 (3.2-5.5) g/dL Globulin 2.9 (2.1-4.2) g/dL Albumin/Globulin Ratio 1.4 (1.0-2.2) Lipase 16 (11-82) U/L Urine Color YELLOW Urine Clarity HAZY (CLEAR) Urine pH 5.5 (5.0-7.5) PH Ur Specific [place] >=1.030 H (1.002-1.030) Urine Protein NEGATIVE (NEGATIVE) mg/dL Urine Glucose (UA) NEGATIVE (NEGATIVE) mg/dL Urine Ketones TRACE (NEGATIVE) mg/dL Urine Occult Blood TRACE-LYSE (NEGATIVE) Urine Nitrite NEGATIVE (NEGATIVE) Urine Bilirubin NEGATIVE (NEGATIVE) Urine Urobilinogen 0.2 (NORMAL) (NORMAL) E.U./dL Ur Leukocyte Esterase SMALL H (NEGATIVE) Urine RBC 0-5 (0-5) /HPF Urine WBC 11-25 H (0-5) /HPF Ur Squamous Epith Cells FEW Squamous (<= Few) Urine Bacteria Few (None Seen) /HPF Ur Microscopic Review INDICATED Urine Culture Comments INDICATED - Diagnostic Imaging Results Diagnostic Imaging Results: positive: See rad report Diagnostic Imaging Results Comments: CT Scan Abd/Pelvis - dilated, fluid filled retrocecal appendix without evidence of perforation. - Images reviewed by me. HARDY Impression/Plan - Problem List Problem List: Assessment: 1) Acute appendicitis Recommendation: 1) Laparoscopic appendectomy, possible open appendectomy under GETA 2) IV fluids 3) IV Cipro/Flagyl Consent: Yue has been counseled for the procedure, it's indications, risks, bene fits and expected outcome as well as alternative therapies. We specifically discussed risks associated with anesthesia, bleeding, infection, injury to surrounding structures which may require additional surgery, and the possible need for conversion to an open procedure. We also discussed the possible need for a blood transfusion with its risks and benefits. Yue understands, agrees, and consents to the proposed operative strategy and requests that we proceed with the procedure as outlined in our discussion. Socrates Pena MD, [facility] General Surgery Service
[2024-03-05] MEDS: metroNIDAZOLE 500 MG/100 ML 500 MG/100 ML BAG IV ONE (08:17)
--- NOTE | 2024-03-05 08:19 | CT Report ---
PROCEDURE: Abdomen/Pelvis W INDICATIONS: abd. pain CONTRAST: Omni 300, 100mls TECHNIQUE: After the administration of intravenous contrast, a CT scan of the abdomen and pelvis was performed. Images were recorded and evaluated at appropriate window settings. Reformats: coronal and sagittal. F or radiation dose reduction, the following was used: automated exposure control, adjustment of mA and /or kV according to patient size. COMPARISON: 09/07/2020 FINDINGS: Image quality: Diagnostic Lower chest: Basal scarring/atelectasis. Liver: Tiny hypervascular lesion at the periphery of segment 4 likely a perfusional anomaly versus he mangioma, consider follow-up if there is any other history of malignancy. No suspicious solid mass otherwise. Gallbladder and biliary system: Possible cholelithiasis. Prominent CBD is 7 mm. Possible small hyperd ensities are seen in the distal CBD (2/43) Pancreas: Mildly ectatic pancreatic duct, no solid mass identified Spleen: Nonenlarged Adrenals: Left adrenal nodule again seen. There is bilateral thickening. Kidneys: No solid mass. No hydronephrosis bilaterally extremely low pelvis/mild pelviectasis Vessels and lymph nodes: The main portal vein is patent. No abdominal aortic aneurysm. No pathologic lymph nodes by size criteria. Bowel and peritoneum: No evidence of small bowel obstruction. No pathologic ascites or drainable absc ess. Hyperemic small bowel seen distally, with mild to moderate wall thickening Acute appendicitis. Body wall: Small fat-containing hernias and umbilical hernia Pelvis: Bladder is unremarkable. Prominent pelvic veins are present. Bones: No acute or suspicious osseous findings. There are degenerative changes. IMPRESSION: Acute appendicitis. Appendicolith is seen at the neck. Probably infectious/inflammatory distal enteritis. Suspected cholelithiasis. Possible hyperdensity in the distal CBD could represent choledocholithiasis (2/43). Consider MRCP to correlate. Other findings as above. Findings were called to the ED Dr. Johnston. Reviewed by: Rafiq Swann MD on 03/05/2024 8:18 AM PDT Approved by: Rafiq Swann MD on 03/05/2024 8:18 AM PDT Station ID: [id number]
--- NOTE | 2024-03-05 08:22 | ED Physician Documentation ---
ED Addendum - Addendum Addendum: 03/05/24 08:20 Dr. Cole who into the department to see the patient in discuss surgery. The patient was needing more nausea and pain medicine so I ordered morphine which she had had earlier in the ED visit. The ondansetron seem to make her more nauseous so I ordered droperidol. See if that is more effective. I did get a call from the radiologist for the morning who is over reading the prior CT. He does agree there is acute appendicitis. He believes there may be some choledocholithiasis without any inflammation. Clinically correlate. The patient does not have any elevation of her LFTs nor alk phos. She does have appendicitis. This does not seem to correlate clinically for biliary colic or cholangitis.
[2024-03-05] MEDS ORDERED: LIDOCAINE 1%-EPI 1:100000 20 ML MDV ONE (08:28)
[2024-03-05] MEDS ORDERED: BUPIVACAINE 0.25% PF 30 ML VIAL ONE (08:28)
[2024-03-05] MEDS ORDERED: ROCURONIUM 50 MG/5 ML VIAL ONE (08:53)
[2024-03-05] MEDS ORDERED: PROPOFOL 200 MG/20 ML VIAL IVP ONE ×2 (08:53→10:52)
[2024-03-05] MEDS ORDERED: ONDANSETRON 4 MG/2 ML VIAL ONE (08:53)
[2024-03-05] MEDS ORDERED: DEXAMETHASONE 4 MG/ML VIAL ONE (08:53)
[2024-03-05] MEDS ORDERED: fentaNYL 100 MCG/2 ML VIAL ONE (08:55)
[2024-03-05] MEDS: CIPROFLOXACIN 400 MG/200 ML 400 MG/200 ML BAG IV ONE (08:59)
[2024-03-05] MEDS: LACTATED RINGERS 1,000 ML IV SCH ×2 (09:00→12:51)
[2024-03-05] MEDS ORDERED: ePHEDrine 50 MG/ML VIAL IVP ONE (10:29)
[2024-03-05] MEDS ORDERED: SUGAMMADEX 200 MG/2 ML VIAL IVP ONE (10:31)
[2024-03-05] MEDS ORDERED: ACETAMINOPHEN 1,000 MG/100 ML 1,000 MG/100 ML BAG IV ONE (10:39)
--- NOTE | 2024-03-05 10:47 | ANESTHESIA ---
Pre-Anesthesia VS, & Labs - Diagnosis acute appendicitis - Procedure lap appy Vital Signs: Temp Pulse Resp BP Pulse Ox O2 Flow Rate 37.0 C 67 16 152/97 H 96 1 03/05/24 08:36 03/05/24 08:36 03/05/24 08:36 03/05/24 08:36 03/05/24 08:36 03/05/24 08:36 Height: 5 ft 2 in Weight (kg): 61.5 kg Body Mass Index: 24.7 BMI Classification: Normal - NPO >8 hours - Is Patient ?: No - Lab Results Current Lab Results: Laboratory Tests 03/05/24 05:00: Sodium 135, Potassium 3.8, Chloride 103, Carbon Dioxide 26, Anion Gap 6.0, BUN 27 H, Creatinine 1.0, Estimated GFR (MDRD) 53 L, Glucose 150 H, Calcium 10.3, Total Bilirubin 0.4, AST 20, ALT 17, Alkaline Phosphatase 51, Total Protein 7.1, Albumin 4.2, Globulin 2.9, Albumin/Globulin Ratio 1.4, Lipase 16 03/05/24 05:00: WBC 7.5, RBC 4.17 L, Hgb 12.3, Hct 38.1, MCV 91.4, MCH 29.5, MCHC 32.3, RDW 12.5, Plt Count 215, MPV 10.5, Neut # (Auto) 5.6, Lymph # (Auto) 1.5, [place] # (Auto) 0.4, Eos # (Auto) 0.1, Baso # (Auto) 0.0, Absolute Nucleated RBC 0.00, Nucleated RBC % 0.0 Fish Bones: 03/05/24 05:00 03/05/24 05:00 Home Medications and Allergies Home Medications: Ambulatory Orders buPROPion HCL [Bupropion HCl Sr] 1 tab PO DAILY 03/05/24 Active Medications Sodium Chloride (Normal Saline 0.9%) 1,000 mls @ 150 mls/hr IV .Q6H40M STA Stop: 03/05/24 14:09 Last Admin: 03/05/24 07:48 Dose: 150 mls/hr Lactated Ringer's (Lr) 1,000 mls @ 100 mls/hr IV .Q10H BRITTNI Last Admin: 03/05/24 09:00 Dose: Not Given Valacyclovir HCl [Valacyclovir] 500 tab PO DAILY 09/14/17 Thyroid Pill 17 mcg ORAL DAILY 09/11/20 Aspirin [Aspirin EC] 81 mg PO DAILY 09/10/23 Metoprolol Succinate [Toprol Xl] 25 mg PO DAILY 09/10/23 T4 50 mcg ORAL DAILY 09/10/23 buPROPion HCL [Bupropion HCl Sr] 1 tab PO DAILY 03/05/24 Allergies/Adverse Reactions: Allergies Allergy/AdvReac Type Severity Reaction Status Date / Time prochlorperazine edisylate * Allergy Severe Edema Verified 03/05/24 04:39 [From Compazine] prochlorperazine maleate * Allergy Severe Edema Verified 03/05/24 04:39 [From Compazine] Sulfa (Sulfonamide Allergy Severe Nausea Verified 03/05/24 04:39 Antibiotics) amoxicillin [From Augmentin] Allergy Unknown Verified 03/05/24 04:39 clavulanic acid Allergy Unknown Verified 03/05/24 04:39 [From Augmentin] tetracycline [Tetracycline] Allergy Nausea Verified 03/05/24 04:39 narcotics AdvReac Unknown Uncoded 03/05/24 04:39 Anes History & Medical History - Anesthetic History Anesthesia Complications: reports: No previous complications Family history of Anesthesia Complications: Denies Family history of Malignant Hyperthermia: Denies (hx of AFib, currently NSR) - Medical History Cardiovascular: reports: None, Arrhythmia Pulmonary: reports: Pneumonia, Sleep apnea Gastrointestinal: reports: GERD, Other Urinary: reports: Other Neuro: reports: None Musculoskeletal: reports: Osteoarthritis, Chronic back pain, Other Endocrine/Autoimmune: reports: HyPOthyroidism, Other Blood Disorders: reports: None Skin: reports: Eczema Smoking Status: Never smoker Psychosocial: reports: No issues indicated History of Cancer?: No - Surgical History General: reports: Colonoscopy, EGD Orthopedic: reports: Shoulder arthroplasty, Spine surgery, Other Exam General: Alert, Oriented x3, Cooperative Dental: WNL Mouth Openin Fingerbreadth Neck Mobility: Normal Mallampati classification: I Thyromental Distance: 4-6 cm Respiratory: Lungs clear Cardiovascular: Regular rate Plan Anesthesia Type: General Consent for Procedure(s) Verified and Reviewed: Yes Code Status: Attempt Resuscitation ASA classification: 2-Mild systemic disease Is this case an emergency?: No
[2024-03-05] MEDS ORDERED: HYDROmorphone 0.5 MG/0.5 ML SYRINGE IVP PRN (10:48)
[2024-03-05] MEDS ORDERED: ePHEDrine 50 MG/ML VIAL IVP PRN (10:48)
[2024-03-05] MEDS ORDERED: fentaNYL 100 MCG/2 ML VIAL IVP PRN (10:48)
[2024-03-05] MEDS ORDERED: NALOXONE 0.4 MG/ML VIAL IVP PRN (10:48)
[2024-03-05] MEDS ORDERED: ONDANSETRON 4 MG/2 ML VIAL IVP PRN (10:48)
[2024-03-05] MEDS ORDERED: ATROPINE ABBOJECT 1 MG/10 ML SYRINGE IVP PRN (10:48)
[2024-03-05] MEDS ORDERED: MORPHINE 2 MG/ML CARPUJECT IVP PRN (10:48)
[2024-03-05] MEDS ORDERED: diphenhydrAMINE INJ 50 MG/ML VIAL ONE (10:50)
[2024-03-05] MEDS ORDERED: METOPROLOL 5 MG/5 ML VIAL IVP ONE (10:53)
[2024-03-05] MEDS: LIDOCAINE 1%-EPI 1:100000 50 ML VIAL SUBQ ONE ×2 (10:55)
[2024-03-05] MEDS: BUPIVACAINE 0.25% PF 30 ML VIAL SUBQ ONE (10:55)
[2024-03-05] MEDS ORDERED: KETOROLAC 30 MG/ML VIAL ONE (11:08)
[2024-03-05] MEDS: LACTATED RINGERS 800 ML IV ONE ×2 (11:16)
--- NOTE | 2024-03-05 11:30 | OPERATIVE REPORT ---
Operative Report - General Admit Date: 03/05/24 - Other Other Information/Narrative: PROCEDURE DATE: 03/05/24 PREOPERATIVE DIAGNOSIS: Yue is an 83 year old female who has clinical, CT, and laboratory findings consistent with acute appendicitis. Yue is being taken to the operating room for laparoscopic appendectomy, possible open appendectomy. POSTOPERATIVE DIAGNOSIS: Acute appendicitis NAME OF PROCEDURE: Laparoscopic appendectomy SURGEON: Socrates Pena MD, FACS TRAFFIC DIRECTOR: Broaching Machine Set Up Operator ANESTHESIA: General endotracheal. ESTIMATED BLOOD LOSS: 5 mL. DRAINS: None SPECIMEN: Appendix COMPLICATIONS None FINDINGS: Distended, inflamed, non-ruptured appendix; adhesions of omentum ronal anterior abdominal wall in upper abdomen. DESCRIPTION OF OPERATION: After consent for the procedure was obtained, the patient was brought to the operating room where in the supine position, general endotracheal anesthesia was administered. A surgical time-out was performed, indicating the patient and the procedure to be performed. The abdomen was prepped with alcohol-free chloroprep and draped in a sterile fashion. The subcutaneous tissue of each of the planned port sites was infiltrated with 1% Lidocaine with epinephrine in a 50/50 mix with 1/4 % Marcaine mixture. Pneumoperitoneum was achieved through a subumbilical incision using a Ml cannula and an open technique. Under direct vision, a 5 mm muscle splitting, non-cutting port was placed in the right lower quadrant and an 12 mm muscle splitting, non-cutting port was placed in the left lower quadrant. Inspection revealed the above noted findings. A harmonic scalpel was used to transect omental adhesions to the left side of the abdomen to permit visualization of the cecum. Placing the patient in Trendelenburg position slightly rolled to the left allowed visualization of the appendix. The appendix was then gently grasped with a ratcheted grasper and retracted superiorly and anteriorly. I then transected the mesoappendix with a harmonic scalpel and identify healthy tissue at the base of the appendix. The base of the appendix was stapled and transected flush with the cecum using an Endo-DEMARIO stapling device using gastrointestinal pb. The appendix was then brought out through the left lower quadrant port site incision using an EndoCatch device. Reinspection of the right lower quadrant revealed no evidence of bleeding or leakage from the previous dissection site. The right lower quadrant was irrigated with warm sterile saline. The irrigant was aspirated. A search was made for sponges, packs, instruments, and needles. None were found. The sponge, pack, instrument, and needle counts were relayed to me as being correct. The left lower quadrant port site was closed with a 2-0 Vicryl under direct vision using an endo-close device. The pneumoperitoneum then was released. There was no evidence of bleeding from the laparoscopic port sleeve sites upon release of the pneumoperitoneum. The subumbilical incision was closed with 2-0 Vicryl for the linea alba. The skin of each of the port sites was closed with interrupted 4-0 Vicryl in a subcuticular fashion with Steri-Strips to reinforce the epidermis. Dressings were placed. The patient tolerated the procedure well and was brought to the recovery room with stable vital signs.
--- NOTE | 2024-03-05 11:33 | Discharge Plan ---
Discharge Plan Problem Reviewed?: Yes Disposition: Home, Self Care Condition: Good Prescriptions: oxyCODONE [Roxicodone] 5 mg PO Q4HR PRN #3 tab PRN Reason: Moderate Pain (Level 4-6) Ibuprofen [Motrin] 400 mg PO Q6HR #60 tab Acetaminophen [Tylenol] 650 mg PO Q6HR #60 tab Aspirin [Aspirin EC] 81 mg PO DAILY 60 Days #60 buPROPion HCL [Bupropion HCl Sr] 1 tab PO DAILY #60 tab Albuterol Sulf [Ventolin Hfa Inhaler] 2 puffs INH QID #1 each Diet: Regular Activity Restrictions: Activity as Tolerated Shower Restrictions: No (May shower tomorrow. Remove brown band aids, wash over wounds, pad dry) Driving Restrictions: No (No driving while taking narcotics) Instruction Topics: Appendectomy Laparoscopic Dc Additional Instructions or Follow Up instructions: Follow up in the General Surgery Clinic in 7-10 days. A nurse will contact you in the next few days to make arrangements for the appointment. If you have que stions or concerns in the meantime, call the clinic at [phone] No Smoking: If you smoke, Please STOP! Call for help.
[2024-03-05] MEDS: LACTATED RINGERS 1,000 ML IV ONE (12:02)
[2024-03-05] MEDS: ALBUTEROL NEB 2.5 MG/3 ML INH SCH (13:00)
--- NOTE | 2024-03-05 13:38 | ANESTHESIA POST OP EVALUATION ---
Anesthesia Post Eval - Post Anesthesia Eval Vitals: Last Vital Signs Temp 36.7 C 03/05/24 13:25 Pulse 69 03/05/24 13:25 Resp 18 03/05/24 13:25 BP 111/58 L 03/05/24 13:25 Pulse Ox 92 03/05/24 13:25 O2 Flow Rate 1 03/05/24 08:36 CV Function Including HR & BP: Stable Pain Control: Satisfactory Nausea & Vomiting: Negative Mental Status: Baseline Respiratory Status: Airway Patent Hydration Status: Satisfactory Anesthesia Complications: None
[2024-03-05] MEDS: IBUPROFEN 400 MG TABLET PO SCH (18:05)
[2024-03-05] MEDS: ACETAMINOPHEN 325 MG TABLET PO SCH (18:05)
[2024-03-05] MEDS ORDERED: ALBUTEROL NEB 2.5 MG/3 ML INH PRN (18:19)
--- NOTE | 2024-03-06 06:44 | PROVIDER PROGRESS NOTE ---
Progress Note General Surgery Post-op Note POD # 1 Laparoscopic appendectomy for acute appendicitis S: Feels good; Mild discomfort LLQ port site. Tolerating a diet. Ambulatory O: VSS, afeb; Lungs clear; Heart NSR; Abd - soft, port sites clean and dry; Minimal discomfort at port sites A: Acute appendicitis - s/p laparoscopic appendectomy - ready for discharge P: Discharge to home; FU surgery clinic in 7-10 days or sooner as needed Fabricio Pena MD, FACS General Surgery Service
--- NOTE | 2024-03-06 07:13 | DISCHARGE SUMMARY ---
"Discharge Summary Admit Date: 03/05/24 Discharge Date: 03/06/24 Discharging Provider: Becky Code Status: Attempt Resuscitation Condition at Discharge: Good Discharge Disposition: 01 Home, Self Care - DIAGNOSES Admission Diagnoses: Acute appendicitis Discharge Diagnoses with Status of Each Condition: Acute appendicitis - s/p laparoscopic appendectomy - HPI History of Present Illness: 83 female presents with clinical and image evidence of acute appendicitis. - CONSULTS | PROCEDURES Consultations: None Procedures: 03/05/24 - Laparoscopic appendectomy - HOSPITAL COURSE Hospital Course: Uncomplicated. At the time of discharge, she was ambulatory, tolerating a general diet, and her port site discomfort was controlled with oral medication. - ALLERGIES Allergies/Adverse Reactions: Allergies Allergy/AdvReac Type Severity Reaction Status Date / Time prochlorperazine edisylate * Allergy Severe Edema Verified 03/05/24 04:39 [From Compazine] prochlorperazine maleate * Allergy Severe Edema Verified 03/05/24 04:39 [From Compazine] Sulfa (Sulfonamide Allergy Severe Nausea Verified 03/05/24 04:39 Antibiotics) amoxicillin [From Augmentin] Allergy Unknown Verified 03/05/24 04:39 clavulanic acid Allergy Unknown Verified 03/05/24 04:39 [From Augmentin] tetracycline [Tetracycline] Allergy Nausea Verified 03/05/24 04:39 narcotics AdvReac Unknown Uncoded 03/05/24 04:39 - MEDICATIONS Home Medications: Ambulatory Orders Medication Instructions Recorded Confirmed Valacyclovir HCl [Valacyclovir] 500 tab PO DAILY 09/14/17 09/10/23 Thyroid Pill 17 mcg ORAL DAILY 09/11/20 09/10/23 Metoprolol Succinate [Toprol Xl] 25 mg PO DAILY 09/10/23 09/10/23 T4 50 mcg ORAL DAILY 09/10/23 09/10/23 Acetaminophen [Tylenol] 650 mg PO Q6HR #60 tab 03/05/24 Aspirin [Aspirin EC] 81 mg PO DAILY 60 Days #60 03/05/24 Ibuprofen [Motrin] 400 mg PO Q6HR #60 tab 03/05/24 Thyroid Pill 17 mcg ORAL DAILY 03/05/24 buPROPion HCL [Bupropion HCl Sr] 1 tab PO DAILY #60 tab 03/05/24 oxyCODONE [Roxicodone] 5 mg PO Q4HR PRN #3 tab 03/05/24 - PHYSICAL EXAM AT DISCHARGE General Appearance: positive: No acute distress, Alert Eyes Bilateral: positive: Normal inspection, PERRL ENT: positive: ENT inspection nml, Pharynx nml Neck: positive: Nml inspection, Thyroid nml, Trachea midline Respiratory: positive: Chest non-tender, No respiratory distress, Breath sounds nml Cardiovascular: positive: Regular rate & rhythm, No murmur Peripheral Pulses: positive: 2+ Abdomen: positive: Non-tender, Nml bowel sounds, No distention Skin: positive: Color nml, No rash Extremities: positive: Non-tender Neurologic/Psychiatric: positive: Oriented x3 - LABS Result Diagrams: 03/05/24 05:00 03/05/24 05:00 - DIAGNOSTIC IMAGING Diagnostic Imaging Results: See rad report - QUALITY (Female Hip Fx Only) Was patient sent home on osteoporosis medication?: No - FOLLOW UP Follow Up: FU surgery clinic in 7-10 days - TIME SPENT Time Spent in Discharge (Minutes): 30"
[2024-03-06 08:15] VITALS: BP 114/58; O2SAT 93
[2024-03-06] MEDS: ASPIRIN EC 81 MG TABLET PO SCH (08:19)
[2024-03-06] MEDS: valACYclovir 500 MG TABLET PO SCH (08:19)
[2024-03-06] MEDS: buPROPion SR 100 MG TABLET PO SCH (08:19)
[2024-03-06] MEDS: oxyCODONE 5 MG TABLET PO PRN (08:21)
[2024-03-06] MEDS ORDERED: THYROID PILL ORAL SCH (09:00)
[2024-03-06] MEDS ORDERED: LEVOTHYROXINE 50 MCG ORAL SCH (09:00)
== END 2024-03-06 09:00 | disposition home or self-care (01) ==
LOC: ED 04:27 → MS3 08:03
PROVIDERS: ADMIT Surgery; ATTEND Surgery
PROC: 0DTJ4ZZ Resection of Appendix, Percutaneous Endoscopic Approach (ICD-10-PCS; principal; 2024-03-05 09:15)
DX: K35.80 Unspecified acute appendicitis (principal); G47.30 Sleep apnea, unspecified
CPT/HCPCS: 36415; 44970; 74177; 80053; 81001; 83690; 85025; 87086; 96361; 96374; 96375; 96376; 99285; A9270; J0131; J1200; J3490; J7120; Q9967; 81003

== ENCOUNTER 2024-05-15 12:55 | Outpatient (CLI) | payer MEDICARE, OTHER ==
[2024-05-15 13:51] LABS: ALBUMIN/GLOBULIN RATIO 1.5 (1.0-2.2); BILIRUBIN,TOTAL 0.4 mg/dL (0.2-1.0); CALCIUM 9.9 mg/dL (8.5-10.3); CREATININE 0.9 mg/dL (0.6-1.3); POTASSIUM 4.2 mmol/L (3.5-4.5); TOTAL PROTEIN 6.6 g/dL (6.4-8.9)
[2024-05-15 14:03] LABS: THYROID STIMULATING HORMONE 1.8 uIU/mL (0.34-5.60)
--- NOTE | 2024-05-15 17:50 | XRAY Report ---
Wrist 3+V RT HISTORY: 83 years of age, WRIST JOINT PAIN, RIGHT TECHNIQUE: Wrist 3+V RT COMPARISON: None. FINDINGS/IMPRESSION: Moderate degenerative change of first carpometacarpal joint. 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 No acute fracture or dislocation. Reviewed by: Geni Pantoja MD on 05/15/2024 5:48 PM PDT Approved by: Geni Pantoja MD on 05/15/2024 5:48 PM PDT Station ID: [id number]
== END 2024-05-15 12:56 | disposition home or self-care (01) ==
LOC: DI 12:55
PROVIDERS: ATTEND Physician Assistant
DX: M18.11 Unilateral primary osteoarthritis of first carpometacarpal joint, right hand (principal); M11.241 Other chondrocalcinosis, right hand; M10.9 Gout, unspecified; R14.0 Abdominal distension (gaseous); R53.83 Other fatigue; E03.9 Hypothyroidism, unspecified
CPT/HCPCS: 36415; 80053; 84439; 84443; 84481

== ENCOUNTER 2024-05-16 08:42 | Outpatient (CLI) | payer MEDICARE, OTHER ==
[~2024-05-16 08:42] MED LIST: GADOTERATE MEGLUMINE 7.5 MMOL/15 ML VIAL ONE
[2024-05-16] MEDS: GADOTERATE MEGLUMINE 7.5 MMOL/15 ML VIAL IVP ONE (10:40)
--- NOTE | 2024-05-16 18:29 | MRI Report ---
PROCEDURE: MRCP W/WO INDICATIONS: ABD BLOATING, DISEASE OF PANCREAS, CHOLECYSTITIS CONTRAST: CLARISCAN 12.0 ML TECHNIQUE: Coronal ultra fast SE through the abdomen, axial 2-D spoiled GE in- and [id number], and breath-hold T2 FSE with fat saturation through the biliary system and pancreas. Oblique coronal and axial thin- slice ultra fast SE, radial thick-slab ultra fast SE centered on the extrahepatic bile ducts. COMPARISON: CT 03/05/2024 FINDINGS: Image quality: Mild motion artifact Lower chest: No basal effusions. Liver: Suspect right lobe liver cyst. No suspicious solid lesion Gallbladder and biliary system: No discrete gallstones no definite gallstones identified. Suspected f undal gallbladder adenomyomatosis. The CBD measures 5 mm, which is within normal limits. There may be sludge within the CBD (/). Pancreas: No ductal dilation. No hypervascular focal lesion Spleen: Nonenlarged Adrenals: No discrete nodules on the right. A left adrenal nodule is again seen, possibly with chemic al shift artifact on opposed phase imaging, though degraded by motion artifact. Kidneys: No solid renal mass or hydronephrosis Vessels and lymph nodes: No solid retroperitoneal mass. No pathologic lymph nodes by size criteria. N o abdominal aortic aneurysm. The main portal vein appears patent Bowel and peritoneum: No evidence of small bowel obstruction or pathologic ascites Body wall: Unremarkable Bones: Degenerative changes are seen IMPRESSION: No discrete gallstones identified. There is a possible fundal adenomyomatosis. The CBD measures 5 to 6 mm, which is the upper limit of normal. Questionable tiny filling defects may represent sludge. If there is further concern, consider ERCP. No acute inflammatory changes of the pancreas or ductal dilation. Again seen is a left adrenal nodule, probably an adenoma, although difficult to confirm due to motion artifact. Consider laboratory testing to determine functional status Other findings above. Reviewed by: Rafiq Swann MD on 05/16/2024 6:28 PM PDT Approved by: Rafiq Swann MD on 05/16/2024 6:28 PM PDT Station ID: [id number]
== END 2024-05-16 08:43 | disposition home or self-care (01) ==
LOC: DI 08:42
PROVIDERS: ATTEND Internal Medicine
DX: R14.0 Abdominal distension (gaseous) (principal); E27.9 Disorder of adrenal gland, unspecified